=== PATIENT | female | born 1965 | race Caucasian/White ===

== ENCOUNTER 2017-10-16 13:37 | Emergency (ER) | payer OTHER, SELFPAY ==
[2017-10-16 13:58] VITALS: BP 91/57; PULSE 61; RESP 20; TEMP 38.4; O2SAT 96; BMI 29.2
--- NOTE | 2017-10-16 14:05 | XR_ITS ---
XR chest 2V HISTORY: ITS.REASON: SOA ORDERING PHYSICIAN: Olivia Lynch PATIENT AGE: 52 years COMPARISON: 03/07/2017 FINDINGS: The cardiomediastinal silhouette and pulmonary vascularity are within normal limits. There are chronic changes in the right CP angle with elevated right hemidiaphragm. In addition, there is faint opacification in the right lung base medially which may be due to superimposed atelectasis or infiltrate. No acute bony anomalies. IMPRESSION: Chronic change in the right lower lobe with superimposed atelectasis or infiltrate. Suggest follow until clear as an underlying nodule could be obscured
--- NOTE | 2017-10-16 14:18 | HMH.EDUTC ---
[facility] [place] Clinical Impression: Pneumonia, Influenza Disposition: Home, Self-Care Condition on Discharge: Good Instructions: Pneumonia-Adult, Influenza, DI for Fever (Symptom) -- Adult Additional Instructions: ? Start Tamiflu today if you are going to take it. Discussed risk and possible benefits. ? Lots of rest ? Increase Fluids water, Gatorade, powerade, pedialyte,if /toddler/child ? Alternate Tylenol and / or ibuprofen as discussed for fever, aches, chills x 24 hours without medication for symptoms ? Follow up IMMEDIATELY for new or worsening Symptoms OR no noticeable improvement over the next 48-72 hours, 911 for difficulty or breathing ? You or your child area contagious until no fever, aches, chills for 24 hours with medication for symptoms Make sure to take antibiotics as prescribed Follow up with family doctor Return if needed Take medication as prescribed If you began to have any difficulty in breathing go straight to ER Prescriptions: Albuterol Sulfate [Albuterol HFA Inhaler] 2 puffs IH Q6HP PRN #1 inh PRN Reason: Shortness Of Breath Or Wheezing Benzonatate [Tessalon Perle 100mg Cap] 100 mg PO TID PRN #15 cap PRN Reason: Cough Cefdinir [Omnicef 300mg Capsule] 300 mg PO BID #20 cap Oseltamivir Phosphate [Tamiflu 75mg Capsule] 75 mg PO BID #10 cap predniSONE [Prednisone 20mg Tab] 20 mg PO BID #10 tab Referrals: Reid Sharma MD [Primary Care Provider] - Medical Decision Making - Medical Records Medical records reviewed: Yes: I reviewed the patient's medical records. Vital Signs: 10/16/17 13:58 Temperature 101.1 F H Temperature Source Temporal Artery Scan Pulse Rate [Right] 61 Respiratory Rate 20 Blood Pressure [Right Arm] 91/57 Blood Pressure Mean [Right Arm] 68 Blood Pressure Source [Right Arm] Automatic Cuff Blood Pressure Position [Right Arm] Sitting 02 Sat by Pulse Oximetry 96 Oxygen Delivery Method Room Air Orders (Tests/Meds): ED MEDICATIONS Discontinued Medications Generic Name Dose Route Start Last Admin Trade Name Freq PRN Reason Stop Dose Admin Albuterol/Ipratropium 3 ml 10/16/17 14:06 10/16/17 14:16 Duoneb 3ml Neb IH 10/16/17 14:07 3 ml ONCE ONE Administration - Radiology Data #1 Image(s): Chest Image Reviewed: Yes I discussed the image results w/the radiologist Chronic changes right lower lobe with superimposed atelectasis or infiltrate. - Eddi Inquiry Pt receiving controlled substance: No Eddi was queried for this patient: No [facility] [place] - General Stated complaint: soa flu like symptoms Mode of Arrival: Ambulatory Source of Information: Patient Limitations: No Limitations Description of Symptoms (Recalled from Triage Doc. by RN): COUGH, FEVER HEENT Symptoms (Recalled from RN notes): Yes Resp Symptoms (Recalled from RN notes): No Skin Symptoms (Recalled from RN notes): No MS Symptoms (Recalled from RN notes): No Functional Status (Recalled from RN notes): N - History of Present Illness Provider Complaint: Patient state that she feels like she may have the flu State that she is having body aches, fever, head and chest congestion along with cough State that at times she coughs so much she feels like she loses her breath State that her daughter has not been feeling well also and her symptoms have continued to worsen since Saturday - Related Data Home Medications Medication Instructions Recorded Confirmed acetaminophen 300 mg-codeine 30 mg 1 tab PO Q8HP PRN tab 09/18/17 tablet albuterol sulfate HFA 90 2 puff INHALATION Q4H PRN g 09/18/17 mcg/actuation aerosol inhaler citalopram 40 mg tablet 40 mg PO QDAY 09/18/17 fluticasone 100 mcg-vilanterol 25 1 inh INHALATION Q24H 09/18/17 mcg/dose powder for inhalation fluticasone 50 mcg/actuation nasal 1 spray INTRANASAL ONCE 09/18/17 spray,suspension gabapentin 600 mg tablet 600 mg PO BID tab 09/18/17 10/16/17 levothyroxine 25 mcg tablet 2
--- NOTE | 2017-10-16 14:21 | ED_ITS ---
[facility] [place] Dis[place] Clinical Impression: Pneumonia, Influenza Disposition: Home, Self-Care Condition on Discharge: Good Instructions: Pneumonia-Adult, Influenza, DI for Fever (Symptom) -- Adult Additional Instructions: ? Start Tamiflu today if you are going to take it. Discussed risk and possible benefits. ? Lots of rest ? Increase Fluids water, Gatorade, powerade, pedialyte,if /toddler/child ? Alternate Tylenol and / or ibuprofen as discussed for fever, aches, chills x 24 hours without medication for symptoms ? Follow up IMMEDIATELY for new or worsening Symptoms OR no noticeable improvement over the next 48-72 hours, 911 for difficulty or breathing ? You or your child area contagious until no fever, aches, chills for 24 hours with medication for symptoms Make sure to take antibiotics as prescribed Follow up with family doctor Return if needed Take medication as prescribed If you began to have any difficulty in breathing go straight to ER Prescriptions: Albuterol Sulfate [Albuterol HFA Inhaler] 2 puffs IH Q6HP PRN #1 inh PRN Reason: Shortness Of Breath Or Wheezing Benzonatate [Tessalon Perle 100mg Cap] 100 mg PO TID PRN #15 cap PRN Reason: Cough Cefdinir [Omnicef 300mg Capsule] 300 mg PO BID #20 cap Oseltamivir Phosphate [Tamiflu 75mg Capsule] 75 mg PO BID #10 cap predniSONE [Prednisone 20mg Tab] 20 mg PO BID #10 tab Referrals: Reid Sharma MD [Primary Care Provider] - Medical Decision Making - Medical Records Medical records reviewed: Yes: I reviewed the patient's medical records. Vital Signs: 10/16/17 13:58 Temperature 101.1 F H Temperature Source Temporal Artery Scan Pulse Rate [Right] 61 Respiratory Rate 20 Blood Pressure [Right Arm] 91/57 Blood Pressure Mean [Right Arm] 68 Blood Pressure Source [Right Arm] Automatic Cuff Blood Pressure Position [Right Arm] Sitting 02 Sat by Pulse Oximetry 96 Oxygen Delivery Method Room Air Orders (Tests/Meds): ED MEDICATIONS Discontinued Medications Generic Name Dose Route Start Last Admin Trade Name Freq PRN Reason Stop Dose Admin Albuterol/Ipratropium 3 ml 10/16/17 14:06 10/16/17 14:16 Duoneb 3ml Neb IH 10/16/17 14:07 3 ml ONCE ONE Administration - Radiology Data #1 Image(s): Chest Image Reviewed: Yes I discussed the image results w/the radiologist Chronic changes right lower lobe with superimposed atelectasis or infiltrate. - Eddi Inquiry Pt receiving controlled substance: No Eddi was queried for this patient: No [facility] [place] HPI - General Stated complaint: soa flu like symptoms Mode of Arrival: Ambulatory Source of Information: Patient Limitations: No Limitations Description of Symptoms (Recalled from Triage Doc. by RN): COUGH, FEVER HEENT Symptoms (Recalled from RN notes): Yes Resp Symptoms (Recalled from RN notes): No Skin Symptoms (Recalled from RN notes): No MS Symptoms (Recalled from RN notes): No Functional Status (Recalled from RN notes): N - History of Present Illness Provider Complaint: Patient state that she feels like she may have the flu State that she is having body aches, fever, head and chest congestion along with cough State that at times she coughs so much she feels like she loses her breath State that her daughter has not been feeling well also and her symptoms have continued to worsen since Saturday - Related Data
[2017-10-16 19:44] LABS: UTC Influenza A Antigen Positive (Negative); UTC Influenza B Antigen Negative (Negative)
== END 2017-10-16 14:59 | disposition home or self-care (01) ==
PROVIDERS: Emergency Provider Nurse Practitioner; PCP Emergency Medicine
DX: J11.00 Influenza due to unidentified influenza virus with unspecified type of pneumonia (principal); I10 Essential (primary) hypertension; F17.210 Nicotine dependence, cigarettes, uncomplicated; F19.11 Other psychoactive substance abuse, in remission; Z86.14 Personal history of Methicillin resistant Staphylococcus aureus infection; Z79.51 Long term (current) use of inhaled steroids; Z79.899 Other long term (current) drug therapy
CPT/HCPCS: 71046; 87804; 99202

== ENCOUNTER → 2017-11-04 15:50 | Outpatient (CLI) | payer OTHER, SELFPAY ==
[2017-11-04 16:22] LABS: Basophils # 0.1 K/mm3 (0-0.2); Basophils % 0.8 % (0.1-2.0); Eosinophils # 0.3 K/mm3 (0.0-0.4); Eosinophils % 5.3 % (0.1-12.0); Hematocrit 39.1 % (37.0-47.0); Hemoglobin 12.7 g/dL (12.2-16.2); Lymphocytes # 1.6 K/mm3 (0.7-4.5); Lymphocytes % 27.2 K/mm3 (10-50); Mean Corpuscular HGB Conc 32.4 g/dL (31.8-35.4); Mean Corpuscular Hemoglobin 30.7 pg (27.0-31.2); Mean Corpuscular Volume 94.9 fl (81-99); Mean Platelet Volume 10.6 fl (7.4-10.4); Monocytes # 0.3 K/mm3 (0.1-1.0); Monocytes % 4.4 % (1.7-9.3); Neutrophils # 3.8 K/mm3 (1.8-7.8); Neutrophils % 62.4 % (37.0-80.0); Platelet Count 122 K/mm3 (142-424); Red Blood Count 4.13 M/mm3 (4.20-5.40); Red Cell Distribution Width 13.5 % (11.5-17.5)
== END ==
PROVIDERS: PCP Emergency Medicine; Visit Provider Nurse Practitioner
DX: D64.9 Anemia, unspecified (principal); D69.6 Thrombocytopenia, unspecified; D59.1 Other autoimmune hemolytic anemias
CPT/HCPCS: 36415; 85025

== ENCOUNTER 2017-11-14 11:51 | Observation (INO) | payer OTHER, SELFPAY ==
[2017-11-14] VITALS (11 sets, daily range): BP systolic 109–125; BP diastolic 51–80; PULSE 60–105; RESP 18–22; TEMP 36.7–37.6; O2SAT 92–98; BMI 28.9; BMI 28.5
--- NOTE | 2017-11-14 12:02 | XR_ITS ---
XR chest 2V HISTORY: ITS.REASON: right chest pain ORDERING PHYSICIAN: Sierra Mendez MD PATIENT AGE: 52 years COMPARISON: 10/16/2017 FINDINGS: The cardiomediastinal silhouette and pulmonary vascularity are within normal limits. Previously noted infiltrate in the right lung base has improved. There remains blunting of the right CP angle is chronic. The remaining lungs are clear. Unremarkable cardiovascular structures. No acute bony anomalies. IMPRESSION: Improved right basilar airspace disease
[2017-11-14 12:10] LABS: Adenovirus,PCR Not Detected (NotDetected); Bordetella Pertussis Not Detected (NotDetected); Chlamydophila Pneumoniae, PCR Not Detected (NotDetected); Coronavirus 229E Not Detected (NotDetected); Coronavirus NL63 Not Detected (NotDetected); Coronavirus OC43 Not Detected (NotDetected); Human Metapneumovirus Not Detected (NotDetected); Influenza A, PCR Not Detected (NotDetected); Influenza AH1, 2009 Not Detected (NotDetected); Influenza AH1, PCR Not Detected (NotDetected); Influenza AH3,PCR Not Detected (NotDetected); Influenza B, PCR Not Detected (NotDetected); Mycoplasma Pneumoniae, PCR Not Detected (NotDected); Parainfluenza 1, PCR Not Detected (NotDetected); Parainfluenza 2, PCR Not Detected (NotDetected); Parainfluenza 3, PCR Not Detected (NotDetected); Parainfluenza 4, PCR Not Detected (NotDetected); Respiratory Syncytial Virus Not Detected (NotDetected); Rhinovirus/Enterovirus Not Detected (NotDetected)
--- NOTE | 2017-11-14 12:16 | PC.NURSE ---
Pt to radiology at this time.
--- NOTE | 2017-11-14 12:29 | HMH.EDCP ---
ED Disposition Clinical Impression: Atypical chest pain, Tobacco abuse, Hypertension, Obesity, Viral syndrome, COPD (chronic obstructive pulmonary disease) Disposition: Still a Patient Condition on Discharge: Fair Referrals: Reid Sharma MD [Primary Care Provider] - - Critical Care Critical Care Time: No Attestation: On 11/14/17, the high probability of a clinically significant, sudden or life threatening deterioration of the following system(s) required my full and direct attention, intervention and personal management. The time I documented below is in addition to time spent performing reported procedures but includes the following listed in this critical care notation. Medical Decision Making - Medical Records Medical records reviewed: Yes: I reviewed the patient's medical records. Vital Signs: 11/14/17 11:52 Temperature 99.6 F Temperature Source Temporal Artery Scan Pulse Rate [Right Brachial] 73 Respiratory Rate 22 Blood Pressure Source [Right Arm] Automatic Cuff 02 Sat by Pulse Oximetry 92 L Oxygen Delivery Method Room Air - Lab Data Lab results reviewed: Yes: I reviewed the patient's lab results. Lab Results 11/14/17 12:05: WBC 7.3, RBC 4.60, Hgb 14.6, Hct 43.7, MCV 95.2, MCH 31.8 H, MCHC 33.4, RDW 13.3, Plt Count 131 L, MPV 10.7 H, Neut % (Auto) 75.1, Lymph % (Auto) 16.0, Marshall % (Auto) 5.2, Eos % (Auto) 3.3, Baso % (Auto) 0.4, Neut # (Auto) 5.5, Lymph # (Auto) 1.2, Marshall # (Auto) 0.4, Eos # (Auto) 0.2, Baso # (Auto) 0.0 11/14/17 12:05: D-Dimer < 100 11/14/17 12:05: Sodium 139, Potassium 3.7, Chloride 103, Carbon Dioxide 27, Anion Gap 12.7, BUN 15, Creatinine 0.84, Estimated Creat Clear 85, Estimated GFR 72, Est GFR ( Amer) 87, Glucose 125 H, Calcium 9.2, Total Bilirubin 0.3, AST 9 L, ALT 27, Alkaline Phosphatase 135 H, Total Creatine Kinase 26, CK-MB (CK-2) < 0.5, CK-MB (CK-2) Rel Index 1.9, Troponin I < 0.02, Total Protein 7.9, Albumin 3.7, Globulin 4.2 H, Albumin/Globulin Ratio 0.9 L 11/14/17 12:05: B-Natriuretic Peptide 31 11/14/17 12:05: Chlamy pneumoniae PCR Not detected, Adenovirus (PCR) Not detected, B.parapertussis DNA PCR Not detected, Coronavirus OC43 (PCR) Not detected, Coronavirus HKU1 (PCR) Detected A, Coronavirus 229E (PCR) Not detected, Coronavirus NL63 (PCR) Not detected, Human Metapneumovir PCR Not detected, Influenza A (H1) PCR Not detected, Influ A (H1N1/09) PCR Not detected, Influenza A (H3) PCR Not detected, Influenza Type A (PCR) Not detected, Influenza Type B (PCR) Not detected, M. pneumoniae (PCR) Not detected, Parainfluenza 1 (PCR) Not detected, Parainfluenza 2 (PCR) Not detected, Parainfluenza 3 (PCR) Not detected, Parainfluenza 4 (PCR) Not detected, RSV (PCR) Not detected, Entero/Rhino (PCR) Not detected Result diagrams: 11/14/17 12:05 11/14/17 12:05 Orders (Tests/Meds): ORDERS Category Date Time Status CT head/brain wo con Stat Cat Scan 11/14/17 12:02 Ordered XR chest 2V Stat Exams 11/14/17 12:02 Taken - Radiology Data #1 Image(s): Chest Image Reviewed: Yes I reviewed the patient's radiology image Preliminary Findings: Abnormal Interval improvement of the right lower lobe infiltrates. - ECG Data Tracing #1 Normal sinus rhythm 77/min baseline artifact nonspecific ST segment and T-wave changes, no acute findings. ECG initial impression date: 11/14/17 ECG initial impression time: 12:33 - Eddi Inquiry Pt receiving controlled substance: No Eddi was queried for this patient: No Medical Decision Making Narrative: I reviewed her EKG with Dr. Latif a pre sales technical consultant who recommended that she be admitted to rule out SD and she will undergo stress test tomorrow. The patient ruled out for pulmonary embolus by negative dimer and her first set of cardiac enzymes were negative Respiratory panel was positive for bradford virus. Chest Pain HPI - General Chief Complaint: PAIN Stated Complaint: right shoulder pain,thinks is pleuri
--- NOTE | 2017-11-14 12:32 | ED_ITS ---
ED Disposition Clinical Impression: Atypical chest pain, Tobacco abuse, Hypertension, Obesity, Viral syndrome, COPD (chronic obstructive pulmonary disease) Disposition: Still a Patient Condition on Discharge: Fair Referrals: Reid Sharma MD [Primary Care Provider] - - Critical Care Critical Care Time: No Attestation: On 11/14/17, the high probability of a clinically significant, sudden or life threatening deterioration of the following system(s) required my full and direct attention, intervention and personal management. The time I documented below is in addition to time spent performing reported procedures but includes the following listed in this critical care notation. Medical Decision Making - Medical Records Medical records reviewed: Yes: I reviewed the patient's medical records. Vital Signs: 11/14/17 11:52 Temperature 99.6 F Temperature Source Temporal Artery Scan Pulse Rate [Right Brachial] 73 Respiratory Rate 22 Blood Pressure Source [Right Arm] Automatic Cuff 02 Sat by Pulse Oximetry 92 L Oxygen Delivery Method Room Air - Lab Data Lab results reviewed: Yes: I reviewed the patient's lab results. Lab Results 11/14/17 12:05: WBC 7.3, RBC 4.60, Hgb 14.6, Hct 43.7, MCV 95.2, MCH 31.8 H, MCHC 33.4, RDW 13.3, Plt Count 131 L, MPV 10.7 H, Neut % (Auto) 75.1, Lymph % ( Auto) 16.0, Meagher % (Auto) 5.2, Eos % (Auto) 3.3, Baso % (Auto) 0.4, Neut # (Auto ) 5.5, Lymph # (Auto) 1.2, Meagher # (Auto) 0.4, Eos # (Auto) 0.2, Baso # (Auto) 0.0 11/14/17 12:05: D-Dimer < 100 11/14/17 12:05: Sodium 139, Potassium 3.7, Chloride 103, Carbon Dioxide 27, Anion Gap 12.7, BUN 15, Creatinine 0.84, Estimated Creat Clear 85, Estimated GFR 72, Est GFR ( Amer) 87, Glucose 125 H, Calcium 9.2, Total Bilirubin 0.3, AST 9 L, ALT 27, Alkaline Phosphatase 135 H, Total Creatine Kinase 26, CK- MB (CK-2) < 0.5, CK-MB (CK-2) Rel Index 1.9, Troponin I < 0.02, Total Protein 7.9, Albumin 3.7, Globulin 4.2 H, Albumin/Globulin Ratio 0.9 L 11/14/17 12:05: B-Natriuretic Peptide 31 11/14/17 12:05: Chlamy pneumoniae PCR Not detected, Adenovirus (PCR) Not detected, B.parapertussis DNA PCR Not detected, Coronavirus OC43 (PCR) Not detected, Coronavirus HKU1 (PCR) Detected A, Coronavirus 229E (PCR) Not detected , Coronavirus NL63 (PCR) Not detected, Human Metapneumovir PCR Not detected, Influenza A (H1) PCR Not detected, Influ A (H1N1/09) PCR Not detected, Influenza A (H3) PCR Not detected, Influenza Type A (PCR) Not detected, Influenza Type B (PCR) Not detected, M. pneumoniae (PCR) Not detected, Parainfluenza 1 (PCR) Not detected, Parainfluenza 2 (PCR) Not detected, Parainfluenza 3 (PCR) Not detected, Parainfluenza 4 (PCR) Not detected, RSV (PCR ) Not detected, Entero/Rhino (PCR) Not detected Result diagrams: 11/14/17 12:05 11/14/17 12:05 Orders (Tests/Meds): ORDERS Category Date Time Status CT head/brain wo con Stat Cat Scan 11/14/17 12:02 Ordered XR chest 2V Stat Exams 11/14/17 12:02 Taken - Radiology Data #1 Image(s): Chest Image Reviewed: Yes I reviewed the patient's radiology image Preliminary Findings: Abnormal Interval improvement of the right lower lobe infiltrates. - ECG Data Tracing #1 Normal sinus rhythm 77/min baseline artifact nonspecific ST segment and T-wave changes, no acute findings. ECG initial impression date: 11/14/17 ECG initial impression time: 12:33 - Eddi Inquiry Pt receiving controlled substance: No [place]
[2017-11-14 12:44] LABS: Basophils % 0.4 % (0.1-2.0); Eosinophils # 0.2 K/mm3 (0.0-0.4); Eosinophils % 3.3 % (0.1-12.0); Hematocrit 43.7 % (37.0-47.0); Hemoglobin 14.6 g/dL (12.2-16.2); Lymphocytes # 1.2 K/mm3 (0.7-4.5); Mean Corpuscular HGB Conc 33.4 g/dL (31.8-35.4); Mean Corpuscular Hemoglobin 31.8 pg (27.0-31.2); Mean Corpuscular Volume 95.2 fl (81-99); Mean Platelet Volume 10.7 fl (7.4-10.4); Monocytes # 0.4 K/mm3 (0.1-1.0); Monocytes % 5.2 % (1.7-9.3); Neutrophils # 5.5 K/mm3 (1.8-7.8); Neutrophils % 75.1 % (37.0-80.0); Platelet Count 131 K/mm3 (142-424); Red Cell Distribution Width 13.3 % (11.5-17.5); White Blood Count 7.3 K/mm3 (4.8-10.8)
--- NOTE | 2017-11-14 12:57 | PC.NURSE ---
Dr Zachary osborne
[2017-11-14 13:00] LABS: Alanine Aminotransferase 27 U/L (12-78); Albumin Level 3.7 gm/dL (3.4-5.0); Albumin/Globulin Ratio 0.9 (1.1-1.8); Alkaline Phosphatase 135 U/L (46-116); Anion Gap 12.7 mEq/L (5-15); Aspartate Amino Transferase 9 U/L (15-37); Bilirubin,Total 0.3 mg/dL (0.2-1.0); Blood Urea Nitrogen 15 mg/dL (7-18); CKMB Relative Index 1.9 U/L (0-4.0); Calcium 9.2 mg/dL (8.5-10.1); Carbon Dioxide 27 mmol/L (21.0-32.0); Chloride 103 mmol/L (98-107); Creatine Kinase 26 U/L (26-192); Creatine Kinase MB < 0.5 mg/ml (0.0-3.6); Creatinine Clearance Estimated 85 mL/min (0-300); Creatinine,Serum 0.84 mg/dL (0.55-1.02); Estimated Glomerular Filt Rate 72 ml/min (>60); GFR (African American) 87 ML/MIN (>60); Globulin 4.2 gm/dl (1.3-3.2); Glucose 125 mg/dL (74-106); Potassium 3.7 mmoL/L (3.5-5.1); Sodium 139 mmol/L (136-145); Total Protein,Serum 7.9 gm/dL (6.4-8.2); Troponin I < 0.02 ng/ml (0.00-0.06)
[2017-11-14 13:15] LABS: D-Dimer < 100 (0-400)
[2017-11-14 13:23] LABS: Coronovirus HKU1,PCR Detected (NotDetected)
--- NOTE | 2017-11-14 13:32 | CA_ITS ---
PROCEDURE: 2-D M-mode and color Doppler study INDICATIONS FOR THE TEST: Chest painx COPD Heart Murmur Tobacco Smoking Palpitations Fatigue Syncope Edema Hypertension Diabetes Mellitus Rheumatic Fever SOB NUNEZ Obesity Hyperlipidemia Family History HD Additional History PATIENT INFORMATION HEIGHT: 5'0'' WEIGHT: 148 GENDER: Female B/P: 118/67 2-D/M-MODE INTERPRETATION: 2-D MEASUREMENTS OBSERVED VALUES IN CMS Right Ventricular Dimension (RVDd) 2.0 Interventricular Septum (Thickness)(IVsd) 0.8 Left Ventricular Internal Dimensions(LVIDd) 4.5 Left Ventricular Posterior Wall (Thickness)(LVPWd) 0.9 Aortic Root 2.6 Aortic Cusp Separation 1.5 Left Atrial Dimensions (LAD) 2.8 2D 1. Left atrium is normal size, left ventricle is normal size, there is no concentric left ventricular hypertrophy, visually estimated ejection fraction of 55% with no obvious regional wall motion abnormality. 2. The right atrium and right ventricle are grossly normal. 3. The aortic valve is minimally thickened and fibrosed. 4. The mitral and tricuspid valvular grossly normal, there is no obvious mitral valve prolapse. 5. The pulmonic valve is poorly visualized. 6. No significant pericardial effusion noted. DOPPLER INTERROGATION: Doppler interrogation of the aortic, mitral and tricuspid valvular presence of mild mitral and tricuspid regurgitation, tricuspid and jet velocity insufficient for calculation of the right ventricular systolic pressure, diastolic parameters are within normal range. CONCLUSION: 1. Normal left ventricular size, preserved left ventricular systolic function, visually estimated ejection fraction 55% with no obvious regional wall motion abnormality, diastolic parameters are within normal range. 2. Mild mitral and tricuspid regurgitation. 3. No significant pericardial effusion noted.
[2017-11-14 14:41] LABS: Troponin I < 0.02 ng/ml (0.00-0.06)
--- NOTE | 2017-11-14 16:32 | HMH.CNCARD ---
History of Present Illness Consult date: 11/14/17 Requesting physician: Sierra Mendez Consult reason: chest pain Chief complaint: chest pain Additional Medical History:: 1. Tobacco use, [id number] history 2. Hypertension 3. Family history of coronary artery disease in her father with his first IL in his 20s. 4. Irritable bowel syndrome 5. Hypothyroidism, on replacement therapy. History of present illness: 52-year-old white female with a 2 day history of chest pain. Patient states a sudden onset that worsens with deep breathing or cough. She states I feel like I have pleurisy as it feels similar to what she has had in the past. Patient denies any recent exertional chest pain or shortness of breath. Previously been told she has mitral valve prolapse about 20 years ago but no recent cardiac testing. Denies any history of syncope or near syncopal symptoms. Occasional palpitations noted. Patient was admitted through the emergency department. Initial troponins normal ?2. EKG is sinus and unremarkable. Cardiology consulted for further evaluation. D-dimer noted to be normal, BNP is 31 and chest x-ray reveals no evidence of congestive heart failure. Patient did test positive for the coronavirus. [facility] History Medical History: Reports:: Hypertension, MRSA Denies:: Cancer, Diabetes Mellitus Type 1, Diabetes Mellitus Type 2, Internal Pacemaker Other Medical History: Reports: Anemia, Arthritis, Fibromyalgia, Hypothyroidism Laterality Cases: Left: Lumpectomy Other Surgeries: Yes: , Hysterectomy-Partial, Sinus Surgery, Other (lipo, breast reduction). No: Pacemaker Amputation: No Fractures: No - *Social History Educational Level: Completed High School Smoking Status: Current every day smoker Tobacco Type: cigarettes # Packs/Day (cigarettes): 10 Alcohol Intake: never Substance Use Type: former substance user, prescription drug Occupational Status: employed Housing: house Household Members: family - Psychiatric History Expresses thoughts of harming self/others: None Suicide Plan Description: No Plan *Family Hx:: Diabetes, Heart Attack, Hypertension Meds Home Medications Medication Instructions Recorded Confirmed Type acetaminophen 300 mg-codeine 30 mg 1 tab PO Q8HP PRN tab 09/18/17 11/14/17 History tablet albuterol sulfate HFA 90 2 puff INHALATION Q4H PRN g 09/18/17 11/14/17 History mcg/actuation aerosol inhaler fluticasone 100 mcg-vilanterol 25 1 inh INHALATION Q24H 09/18/17 11/14/17 History mcg/dose powder for inhalation fluticasone 50 mcg/actuation nasal 1 spray INTRANASAL ONCE 09/18/17 History spray,suspension gabapentin 600 mg tablet 600 mg PO BID tab 09/18/17 11/14/17 History metoprolol tartrate 50 mg tablet 50 mg PO BID 09/18/17 11/14/17 History Citalopram Hydrobromide [Celexa] 40 mg PO QDAY 11/14/17 11/14/17 History Nicotine [Nicotine Patch 21 mg TRANSDERMA ONCE 11/14/17 11/14/17 History 21mg/24hrs] Allergies Allergy/AdvReac Type Severity Reaction Status Date / Time eletriptan Allergy Severe S-SWELLS-OR Verified 10/16/17 14:04 AL/THROAT metronidazole Allergy Severe LIVER Verified 10/16/17 14:04 FAILURE/JAUNDICE sumatriptan Allergy Severe S-SWELLS-OR Verified 10/16/17 14:04 AL/THROAT acetaminophen AdvReac Mild NA-NAUSEA Verified 10/16/17 14:04 [From Tylenol-Codeine #3] codeine AdvReac Mild NA-NAUSEA Verified 10/16/17 14:04 [From Tylenol-Codeine #3] erythromycin base AdvReac Mild NA-NAUSEA/V Verified 10/16/17 14:04 OMITING Sulfa (Sulfonamide AdvReac Mild NA-NAUSEA/V Verified 10/16/17 14:04 Antibiotics) OMITING sulfacetamide AdvReac Mild NA-NAUSEA/V Verified 10/16/17 14:04 OMITING tetracycline AdvReac Mild NA-NAUSEA/V Verified 10/16/17 14:04 OMITING Review of Systems - *Cardiovascular Reports chest pain, Denies shortness of breath - *Respiratory Reports shortness of breath, Reports pain with cough - *Gastrointestinal
--- NOTE | 2017-11-14 17:04 | PC.NURSE ---
pt lungs are clear but diminished. bowel sounds active, heart sounds normal. iv site changed due to pain. call light in reach. pt stated pain and prn med given per mar. on reassessment. pt stated med was effective. will continue to monitor pt condition.
--- NOTE | 2017-11-14 20:59 | PC.NURSE ---
Imtiaz Nair, phoned to update nursing on time and date of Cardiolyte Stress, that was ordered for the am. S Call RN notified that dosing would be @ 0700 and stress would be @ 0830. NPO order entered
[2017-11-15] VITALS (7 sets, daily range): BP systolic 106–130; BP diastolic 53–62; PULSE 60–84; RESP 18; TEMP 36.2–36.6; O2SAT 98–99
--- NOTE | 2017-11-15 03:57 | PC.NURSE ---
PT IS A&OX3. SHE IS ON DROPLET PRECAUTIONS R/T CORONAVIRUS. SHE HAS AMBULATED TO THE BATHROOM. SHE HAS A COUGH BUT DENIES SPUTUM PRODUCTION. LUNG SOUNDS CTA. SHE HAS RECEIVED PRN MEDICATION FOR REPORTS OF PAIN IN HER RIGHT SIDE WHEN SHE EXHALES. DENIES SOA.
--- NOTE | 2017-11-15 04:01 | PC.NURSE ---
PT IS NPO FOR STRESS TEST THIS AM.
--- NOTE | 2017-11-15 07:00 | NM_ITS ---
History and Indications: Hypertension, tobacco use, family history, chest pain, shortness of breath Procedure: Patient received a 0.4 mg of Lexiscan, resting heart rate was 60 bpm, resting blood pressure 131/69, with Lexiscan maximum heart rate achieved was 118 bpm, and the blood pressure was 142/76. With Lexiscan patient complained of shortness of breath and nausea Electrocardiogram: Resting electrocardiogram showed sinus rhythm nonspecific ST-T changes, with Lexiscan there is less than [address] segment depression noted from the baseline EKG, nonspecific T wave changes. The EKG portion of the Lexiscan is nondiagnostic. Cardiac stress and resting SPECT images: Cardiac stress and rest SPECT images were obtained using technetium 99 Myoview 10.8 mCi at rest and 30.8 mCi at stress, gated SPECT further analysis of segmental wall motion and calculation of the ejection fraction also done. Cardiac stress and rest images show uniform myocardial activity without any segmental perfusion abnormality, computer derived ejection fraction over 65% with no obvious regional wall motion abnormality, right ventricle is mildly enlarged with normal contractility. Conclusion: 1. The EKG portion of the Lexiscan Myoview is nondiagnostic. 2. No obvious scintigraphic evidence of reversible ischemia seen, computer derived ejection fraction is over 65% with no obvious regional wall motion abnormality, right ventricle is mildly enlarged with normal contractility.
--- NOTE | 2017-11-15 07:15 | PC.NURSE ---
REPORT GIVEN TO Nato KEATING W/C
[2017-11-15 07:16] LABS: Basophils % 0.2 % (0.1-2.0); Eosinophils % 0.3 % (0.1-12.0); Hematocrit 42.4 % (37.0-47.0); Hemoglobin 14.2 g/dL (12.2-16.2); Lymphocytes # 0.5 K/mm3 (0.7-4.5); Lymphocytes % 9.5 K/mm3 (10-50); Mean Corpuscular HGB Conc 33.4 g/dL (31.8-35.4); Mean Corpuscular Hemoglobin 31.8 pg (27.0-31.2); Mean Corpuscular Volume 95.2 fl (81-99); Mean Platelet Volume 10.6 fl (7.4-10.4); Monocytes # 0.1 K/mm3 (0.1-1.0); Monocytes % 2.1 % (1.7-9.3); Neutrophils # 4.6 K/mm3 (1.8-7.8); Neutrophils % 87.9 % (37.0-80.0); Platelet Count 132 K/mm3 (142-424); Red Blood Count 4.46 M/mm3 (4.20-5.40); White Blood Count 5.2 K/mm3 (4.8-10.8)
[2017-11-15 07:18] LABS: MANUAL DIFFERENTIAL MANUAL DIFFERENTIAL (MANUAL DIFF)
[2017-11-15 07:21] LABS: Blood Urea Nitrogen 13 mg/dL (7-18); Carbon Dioxide 27 mmol/L (21.0-32.0); Chloride 104 mmol/L (98-107); Creatinine Clearance Estimated 87 mL/min (0-300); Creatinine,Serum 0.81 mg/dL (0.55-1.02); Estimated Glomerular Filt Rate 75 ml/min (>60); GFR (African American) 91 ML/MIN (>60); Glucose 194 mg/dL (74-106); Sodium 139 mmol/L (136-145)
--- NOTE | 2017-11-15 07:53 | HMH.PHAVTE ---
[facility] Pharmacy VTE Monitoring - Patient Demographics Admission date: 11/14/17 Report Date: 11/15/17 Time: 07:53 Allergies/Adverse Reactions: Patient Allergies eletriptan Allergy (Severe, Verified 10/16/17 14:04) E-PSFYPN-HBVF/THROAT metronidazole Allergy (Severe, Verified 10/16/17 14:04) LIVER FAILURE/JAUNDICE sumatriptan Allergy (Severe, Verified 10/16/17 14:04) [id number]/THROAT acetaminophen [From Tylenol-Codeine #3] Adverse Reaction (Mild, Verified 10/16/17 14:04) NA-NAUSEA codeine [From Tylenol-Codeine #3] Adverse Reaction (Mild, Verified 10/16/17 14:04) NA-NAUSEA erythromycin base Adverse Reaction (Mild, Verified 10/16/17 14:04) NA-NAUSEA/VOMITING Sulfa (Sulfonamide Antibiotics) Adverse Reaction (Mild, Verified 10/16/17 14:04) NA-NAUSEA/VOMITING sulfacetamide Adverse Reaction (Mild, Verified 10/16/17 14:04) NA-NAUSEA/VOMITING tetracycline Adverse Reaction (Mild, Verified 10/16/17 14:04) NA-NAUSEA/VOMITING Height: 1.52 m Weight: 66.31 kg Patient Problems: Current Active Problems Atypical chest pain (Acute) Tobacco abuse (Acute) Hypertension (Acute) Obesity (Acute) Viral syndrome (Acute) COPD (chronic obstructive pulmonary disease) (Acute) - VTE Risk Labs: VTE Related Lab Results Hgb 14.2 g/dL (12.2-16.2) 11/15/17 06:30 Hct 42.4 % (37.0-47.0) 11/15/17 06:30 Plt Count 132 K/mm3 (142-424) L 11/15/17 06:30 BUN 13 mg/dL (7-18) 11/15/17 06:30 Creatinine 0.81 mg/dL (0.55-1.02) 11/15/17 06:30 Estimated Creat Clear 87 mL/min (0-300) 11/15/17 06:30 Was VTE Risk Assessment Performed: Yes VTE Score: 3 VTE Risk Level: Low Risk - Prophylaxis VTE Prophylaxis Ordered?: Yes Types of VTE Prophylaxis: TEDS Knee High Location of Applied Device: Bilateral Lower Extremeties - VTE Diagnosis Confirmed Treatment or plan recommended: Continue Current Treatment
[2017-11-15 10:00] LABS: Lymphocytes % 13 % (10-50); Monocytes % 2 % (2-9); Neutrophils % 83 % (42-76); RBC Morphology Normal; Total Cells Counted 100
[2017-11-15 10:01] LABS: Platelet Estimate Normal
--- NOTE | 2017-11-15 14:31 | HMH.HPDC ---
General - General Admission date: 11/14/17 Discharge date: 11/15/17 *Admission Date: 11/14/17 *Chief complaint: chest pain *History of present illness: this wf with episodes of chest pain over the last few days was seen in the ed -years old white female smoker with history of COPD recent diagnosis of pneumonia 3 weeks ago. She finished her antibiotics. She continues to have productive cough since then. Developed right lower intercostal sharp pain that is worse with cough and deep breathing. She believes this pleurisy. She was unable to get her primary care physician so she came to the ED. she denies having fever or chills excessive shortness of breath, palpitation, hemoptysis hematemesis coffee-ground emesis or bleeding per rectum. [facility] History I have reviewed the patient's past medical history: Yes Medical History: Reports:: Hypertension, MRSA Denies:: Cancer, Diabetes Mellitus Type 1, Diabetes Mellitus Type 2, Internal Pacemaker Other Medical History: Reports: Anemia, Arthritis, Fibromyalgia, Hypothyroidism Laterality Cases: Left: Lumpectomy Other Surgeries: Yes: , Hysterectomy-Partial, Sinus Surgery, Other (lipo, breast reduction). No: Pacemaker Amputation: No Fractures: No - *Social History Educational Level: Completed High School Smoking Status: Current every day smoker Tobacco Type: cigarettes # Packs/Day (cigarettes): 10 Alcohol Intake: never Substance Use Type: former substance user, prescription drug Occupational Status: employed Housing: house Household Members: family - Psychiatric History Expresses thoughts of harming self/others: None Suicide Plan Description: No Plan *Family Hx:: Diabetes, Heart Attack, Hypertension Review of Systems - Review of Systems Review of systems:: pertinent systems reviewed and negative unless documented below - Constitutional Denies fever(s) - Eyes Denies loss of vision - ENT Denies neck pain - *Cardiovascular Reports chest pain at rest, Reports chest pain with activity, Reports shortness of breath - *Respiratory Denies chest congestion, Denies coughing up blood - *Gastrointestinal Denies constipation - *Musculoskeletal Denies joint pain - Integumentary/Breasts Denies rash - *Neurologic Denies tingling/numbness/burning sensations - Psychiatric Reports anxiety Exam Vital signs and Labs for Last 24 Hours: Temp Pulse Resp BP Pulse Ox 97.1 F L 67 18 130/53 99 11/15/17 12:00 11/15/17 12:00 11/15/17 04:00 11/15/17 12:00 11/15/17 12:00 Laboratory Results - last 24 hr 11/14/17 14:12: Troponin I < 0.02 11/15/17 06:30: WBC 5.2 D, RBC 4.46, Hgb 14.2, Hct 42.4, MCV 95.2, MCH 31.8 H, MCHC 33.4, RDW 13.0, Plt Count 132 L, MPV 10.6 H, Neut % (Auto) 87.9 H, Lymph % (Auto) 9.5 L, [place] % (Auto) 2.1, Eos % (Auto) 0.3, Baso % (Auto) 0.2, Neut # (Auto) 4.6, Lymph # (Auto) 0.5 L, [place] # (Auto) 0.1, Eos # (Auto) 0.0, Baso # (Auto) 0.0, Total Counted 100, Neutrophils % (Manual) 83 H, Band Neutrophils % 2.0, Lymphocytes % (Manual) 13, Monocytes % (Manual) 2, Platelet Estimate Normal, RBC Morphology Normal 11/15/17 06:30: Sodium 139, Potassium 4.0, Chloride 104, Carbon Dioxide 27, Anion Gap 12.0, BUN 13, Creatinine 0.81, Estimated Creat Clear 87, Estimated GFR 75, Est GFR ( Amer) 91, Glucose 194 H D I & O for Last 24 hours: Intake & Output 11/13/17 11/14/17 11/15/17 11/16/17 11:59 11:59 11:59 11:59 Intake Total 1056 / 1056 Output Total 700 / 700 Balance 356 / 356 Weight 146 lb 3.016 oz - Constitutional no acute distress - *Routine HEENT Exam Head: Present: normocephalic Eye: Present: EOMI, PERRL ENT: Present: mucous membranes dry - *Routine Neck Exam Present: supple - *Routine Respiratory Exam Present: CTA bilaterally - *Routine Cardiovascular Exam Present: RRR, murmur - *Routine Abdominal Exam Present: soft. Absent: tenderness, distended - *Routine Extremities Exam Absent: calf tenderness
--- NOTE | 2017-12-05 09:48 | P.CONS_ITS ---
History of Present Illness Consult date: 11/14/17 Requesting physician: Sierra Mendez Consult reason: chest pain Chief complaint: chest pain Additional Medical History:: 1. Tobacco use, [id number] history 2. Hypertension 3. Family history of coronary artery disease in her father with his first PR in his 20s. 4. Irritable bowel syndrome 5. Hypothyroidism, on replacement therapy. History of present illness: 52-year-old white female with a 2 day history of chest pain. Patient states a sudden onset that worsens with deep breathing or cough. She states I feel like I have pleurisy as it feels similar to what she has had in the past. Patient denies any recent exertional chest pain or shortness of breath. Previously been told she has mitral valve prolapse about 20 years ago but no recent cardiac testing. Denies any history of syncope or near syncopal symptoms. Occasional palpitations noted. Patient was admitted through the emergency department. Initial troponins normal ?2. EKG is sinus and unremarkable. Cardiology consulted for further evaluation. D-dimer noted to be normal, BNP is 31 and chest x-ray reveals no evidence of congestive heart failure. Patient did test positive for the coronavirus. [facility] History Medical History: Reports:: Hypertension, MRSA Denies:: Cancer, Diabetes Mellitus Type 1, Diabetes Mellitus Type 2, Internal Pacemaker Other Medical History: Reports: Anemia, Arthritis, Fibromyalgia, Hypothyroidism Laterality Cases: Left: Lumpectomy Other Surgeries: Yes: , Hysterectomy-Partial, Sinus Surgery, Other ( lipo, breast reduction). No: Pacemaker Amputation: No Fractures: No - *Social History Educational Level: Completed High School Smoking Status: Current every day smoker Tobacco Type: cigarettes # Packs/Day (cigarettes): 10 Alcohol Intake: never Substance Use Type: former substance user, prescription drug Occupational Status: employed Housing: house Household Members: family - Psychiatric History Expresses thoughts of harming self/others: None Suicide Plan Description: No Plan *Family Hx:: Diabetes, Heart Attack, Hypertension Meds Home Medications Medication Instructions Recorded Confirmed Type acetaminophen 300 mg-codeine 30 mg 1 tab PO Q8HP PRN tab 09/18/17 11/14/17 History tablet albuterol sulfate HFA 90 2 puff INHALATION Q4H PRN g 09/18/17 11/14/17 History mcg/actuation aerosol inhaler fluticasone 100 mcg-vilanterol 25 1 inh INHALATION Q24H 09/18/17 11/14/17 History mcg/dose powder for inhalation fluticasone 50 mcg/actuation nasal 1 spray INTRANASAL ONCE 09/18/17 History spray,suspension gabapentin 600 mg tablet 600 mg PO BID tab 09/18/17 11/14/17 History metoprolol tartrate 50 mg tablet 50 mg PO BID 09/18/17 11/14/17 History Citalopram Hydrobromide [Celexa] 40 mg PO QDAY 11/14/17 11/14/17 History Nicotine [Nicotine Patch 21 mg TRANSDERMA ONCE 11/14/17 11/14/17 History 21mg/24hrs] Allergies Allergy/AdvReac Type Severity Reaction Status Date / Time eletriptan Allergy Severe S-SWELLS-OR Verified 10/16/17 14:04 AL/THROAT metronidazole Allergy Severe LIVER Verified 10/16/17 14:04 FAILURE/JAUNDICE sumatriptan Allergy Severe S-SWELLS-OR Verified 10/16/17 14:04 AL/THROAT acetaminophen AdvReac Mild NA-NAUSEA Verified 10/16/17 14:04 [From Tylenol-Codeine #3] codeine AdvReac Mild NA-NAUSEA Verified 10/16/17 14:04 [From Tylenol-Codei
== END 2017-11-15 15:50 | disposition home or self-care (01) ==
LOC: ER 13:13 → 2ND 13:51
PROVIDERS: Admitting Provider Emergency Medicine; Emergency Provider Emergency Medicine; PCP Emergency Medicine; Visit Provider Emergency Medicine
DX: R07.9 Chest pain, unspecified (principal); B34.9 Viral infection, unspecified; B97.29 Other coronavirus as the cause of diseases classified elsewhere; J44.9 Chronic obstructive pulmonary disease, unspecified; I10 Essential (primary) hypertension; Z72.0 Tobacco use
CPT/HCPCS: 36415; 71046; 78452; 80048; 80053; 82550; 82553; 83880; 84484; 85007; 85025; 85378; 87486; 87581; 87633; 87798; 93005; 93017; 93306; 94640; 96365; 99283; A9502; G0378; J2270; J2785

== ENCOUNTER → 2018-02-10 11:29 | Outpatient (REF) | payer OTHER, SELFPAY ==
[2018-02-10 14:19] LABS: Amphetamine/Metha Screen,Urine Negative ng/mL (<1000); Barbiturates Screen,Urine Negative ng/mL (<200); Benzodiazepines Screen,Urine Negative ng/mL (200); Cannabinoid Screen,Urine Negative ng/mL (<50); Cocaine Screen,Urine Negative ng/g (<300); Methadone Screen,Urine Negative ng/mL (<300); Opiate Screen,Urine Negative ng/mL (<300); Phencyclidine Screen,Urine Negative ng/mL (<25)
[2018-02-10 19:14] LABS: Free T4 (Free Thyroxine) 0.69 ng/dl (0.76-1.46); Thyroid Stimulating Hormone 2.33 uIU/ml (0.358-3.740)
== END ==
LOC: LAB 11:29
PROVIDERS: Visit Provider Emergency Medicine
DX: Z79.899 Other long term (current) drug therapy (principal); R53.83 Other fatigue
CPT/HCPCS: 80305; 84439; 84443

== ENCOUNTER → 2018-03-07 12:38 | Outpatient (CLI) | payer OTHER, SELFPAY ==
--- NOTE | 2018-03-07 12:39 | MM_ITS ---
MM Dig mamm BI DX w/CAD, US breast RT complete INDICATION: Follow-up abnormal mammogram ORDERING PHYSICIAN: Reid Sharma MD PATIENT AGE: 52 years COMPARISON: None TECHNIQUE: Standard bilateral images along with problem-solving views of the right breast FINDINGS: Previous mammogram of 05/07/2017 was reviewed as a category 3 and the patient was recommended to return in 6 months. Patient returns today for the follow-up which would be a 10 month follow-up. There is average fibroglandular tissue. Bilateral benign-appearing nodular opacities are present as before. A 5 mm nodule present in the outer aspect of the right breast stable since 01/18/2016. Asymmetric density in the deep aspect of the right breast is not demonstrated on today's study. It was difficult to get back as far on the breast on the CC images. Patient has had some weight loss from the previous exam. An X cc view. Demonstrate a small nodular density in the deep aspect of the right breast which may correspond to the original abnormality described in this area. This region measures 4 mm and has a benign appearance. No malignant appearing calcifications are evident. The previously noted small cluster of calcifications in the retroareolar region are unchanged. 4 mm nodular density is present in the retroareolar region and may correspond to a cyst as seen on the ultrasound. Palpable abnormality 3:00 region reported. No mammographic or sonographic abnormality at this region. Right breast ultrasound: 6 mm cyst at 6:00 near the nipple, 5 mm cyst at 10:00 Left mammogram: There is some architectural distortion in the lateral aspect of the left breast similar to 05/07/2017. Asymmetric density is present in the deep aspect of left breast on the MLO view but is felt to represent overlapping fibroglandular tissue and possible vessel IMPRESSION: Probably benign findings right breast regarding the 4 mm nodular density in the deep aspect of the right breast only well seen on the xcc view not as well demonstrated on today's exam. Continued 6 month follow-up recommended BI-RADS Category: 3 Benign Finding Short Term Follow-up RECOMMENDED FOLLOW-UP: 6M - 6 MONTH FOLLOW-UP Recommend 6 month right-sided mammographic and sonographic follow-up. NEGATIVE MAMMOGRAM AND NEGATIVE ULTRASOUND DOES NOT EXCLUDE THE POSSIBILITY OF MALIGNANCY. IF THERE IS INDEED A PALPABLE ABNORMALITY THEN INJECTED BE MANAGED ON A CLINICAL BASIS (A letter has been sent to the patient regarding results of the study.)
== END ==
PROVIDERS: PCP Emergency Medicine; Visit Provider Emergency Medicine
DX: R92.8 Other abnormal and inconclusive findings on diagnostic imaging of breast (principal)
CPT/HCPCS: 76641; 77066

== ENCOUNTER → 2018-07-03 11:35 | Outpatient (CLI) | payer OTHER, SELFPAY ==
[2018-07-03 12:02] LABS: Basophils # 0.1 K/mm3 (0-0.2); Basophils % 0.7 % (0.1-2.0); Eosinophils # 0.4 K/mm3 (0.0-0.4); Eosinophils % 4.2 % (0.1-12.0); Hematocrit 46.1 % (37.0-47.0); Lymphocytes # 2.1 K/mm3 (0.7-4.5); Lymphocytes % 20.7 K/mm3 (10-50); Mean Corpuscular HGB Conc 32.5 g/dL (31.8-35.4); Mean Corpuscular Hemoglobin 31.4 pg (27.0-31.2); Mean Corpuscular Volume 96.6 fl (81-99); Mean Platelet Volume 9.8 fl (7.4-10.4); Monocytes # 0.5 K/mm3 (0.1-1.0); Monocytes % 4.9 % (1.7-9.3); Neutrophils % 69.5 % (37.0-80.0); Platelet Count 144 K/mm3 (142-424); Red Blood Count 4.77 M/mm3 (4.20-5.40); Red Cell Distribution Width 13.8 % (11.5-17.5); White Blood Count 10.1 K/mm3 (4.8-10.8)
[2018-07-03 14:07] LABS: Alanine Aminotransferase 27 U/L (12-78); Albumin Level 3.8 gm/dL (3.4-5.0); Albumin/Globulin Ratio 1.1 (1.1-1.8); Alkaline Phosphatase 112 U/L (46-116); Anion Gap 11.3 mEq/L (5-15); Aspartate Amino Transferase 11 U/L (15-37); Bilirubin,Total 0.3 mg/dL (0.2-1.0); Blood Urea Nitrogen 21 mg/dL (7-18); Calcium 9.4 mg/dL (8.5-10.1); Carbon Dioxide 29 mmol/L (21.0-32.0); Chloride 101 mmol/L (98-107); Creatinine,Serum 0.74 mg/dL (0.55-1.02); Estimated Glomerular Filt Rate 83 ml/min (>60); GFR (African American) 100 ML/MIN (>60); Globulin 3.5 gm/dl (1.3-3.2); Glucose 87 mg/dL (74-106); Potassium 4.3 mmoL/L (3.5-5.1); Sodium 137 mmol/L (136-145); Total Protein,Serum 7.3 gm/dL (6.4-8.2)
== END ==
PROVIDERS: PCP Emergency Medicine; Visit Provider Internal Medicine Medical Oncology
DX: R94.5 Abnormal results of liver function studies (principal)
CPT/HCPCS: 36415; 80053; 85025

== ENCOUNTER → 2018-07-15 10:48 | Outpatient (CLI) | payer OTHER, SELFPAY ==
--- NOTE | 2018-07-15 10:49 | US_ITS ---
US transvaginal HISTORY: Right-sided pelvic pain ITS.REASON: pelvic pain ORDERING PHYSICIAN: Miguel Carreno MD PATIENT AGE: 53 years Comparison: None FINDINGS: There has been a prior hysterectomy. The vaginal cuff has an unremarkable appearance. There has been a prior left oophorectomy. The right ovary measures 5.4 x 1.7 x 4.3 cm and contains multiple small follicular cysts measuring up to 2 cm. These are somewhat irregular in nature. More larger on the previous ultrasound of 01/18/2016. No cul-de-sac fluid evident. IMPRESSION: 1. Small right ovarian cysts. 2. Prior left oophorectomy and hysterectomy
== END ==
PROVIDERS: PCP Emergency Medicine; Visit Provider Obstetrics & Gynecology
DX: R10.2 Pelvic and perineal pain (principal)
CPT/HCPCS: 76830

== ENCOUNTER → 2018-08-19 16:15 | Outpatient (CLI) | payer OTHER, SELFPAY | PROVIDERS: Visit Provider Obstetrics & Gynecology | DX: N94.9 Unspecified condition associated with female genital organs and menstrual cycle (principal) | CPT/HCPCS: 36415; 86316 ==

== ENCOUNTER → 2018-09-08 13:28 | Outpatient (CLI) | payer OTHER, SELFPAY ==
--- NOTE | 2018-09-08 13:30 | MM_ITS ---
MM Dig mamm DX unilat RT CAD, US breast RT complete Ordering Physician: Reid Sharma MD Patient Age: 53 years Female COMPARISON: Bilateral mammogram February 2018. Right mammogram April 2017 ultrasound right breast March 2018 INDICATION: Follow-up possible nodule right breast DIAGNOSTIC RIGHT MAMMOGRAM including spot views TECHNIQUE: MLO and cc view right breast along with spot CC and MLO view deep breast. . FINDINGS: Previous study showed a small density seen at the deep breast margin of film.. However it is no longer evident. No new areas of significant concern on today's study. Stable small benign nodule at the lateral right breast stable & can be be followed. Subtle retroareolar ovoid density is barely evident today. Subsequent Ultrasound reveals a stable small benign cyst and not of concern === ULTRASOUND RIGHT BREAST including axillary survey .. Small 5.4 mm cyst is again seen in the intermediate retroareolar region again for very subtle density here. No significant change since prior study . A tiny flat hypoechoic area which appears to be most likely debris-filled cyst barely evident at 10:00. Measure 7 mm x 3 mm. Can be followed . No solid nodule or areas of concern otherwise seen. Axillary survey unremarkable. IMPRESSION:----- 1. Stable right mammogram.-No new areas of concern. No significant appearing findings 2. Right breast ultrasound.- No areas of concern. .Stable small cyst retroareolar region. & Small debris-filled cyst 10:00 cyst 3. Patient to resume a annual scheduled bilateral follow-up BI-RADS Category: 2 Benign Finding(s) RECOMMENDED FOLLOW-UP: 6M 6 MONTH FOLLOW-UP Suggest bilateral mammogram 6-8 months to resume annual mammography schedule A letter has been sent to the patient regarding results of the study.)
== END ==
PROVIDERS: PCP Emergency Medicine; Visit Provider Emergency Medicine
DX: R92.8 Other abnormal and inconclusive findings on diagnostic imaging of breast (principal)
CPT/HCPCS: 76641; 77065

== ENCOUNTER → 2018-09-19 12:06 | Outpatient (CLI) | payer OTHER, SELFPAY ==
[2018-09-19 12:11] LABS: Microscopic, Urine URINE MICROSCOPIC (MICROSCOPIC)
[2018-09-19 12:42] LABS: Basophils % 0.3 % (0.1-2.0); Eosinophils # 0.1 K/mm3 (0.0-0.4); Eosinophils % 0.8 % (0.1-12.0); Hemoglobin 12.2 g/dL (12.2-16.2); Lymphocytes # 2.2 K/mm3 (0.7-4.5); Mean Corpuscular Hemoglobin 31.5 pg (27.0-31.2); Mean Corpuscular Volume 95.4 fl (81-99); Mean Platelet Volume 8.8 fl (7.4-10.4); Monocytes # 0.5 K/mm3 (0.1-1.0); Monocytes % 5.1 % (1.7-9.3); Neutrophils # 7.6 K/mm3 (1.8-7.8); Neutrophils % 72.8 % (37.0-80.0); Platelet Count 171 K/mm3 (142-424); Red Blood Count 3.88 M/mm3 (4.20-5.40); Red Cell Distribution Width 13.7 % (11.5-17.5); White Blood Count 10.4 K/mm3 (4.8-10.8)
[2018-09-19 13:09] LABS: Appearance,Urine SL CLOUDY (Clear); Bilirubin,Urine Negative (Negative); Blood, Urine Negative (Negative); Color,Urine YELLOW (Yellow); Glucose,Urine (UA) Negative (Negative); Ketones,Urine Negative (Negative); Leukocyte Esterase,Urine Negative (Negative); Nitrate,Urine Negative (Negative); PH,Urine 6.5 (5.0-8.5); Protein,Urine TRACE (Negative); Specific Gravity, Urine >= 1.030 (1.005-1.030)
[2018-09-19 13:35] LABS: Bacteria,Urine 1+ /lpf; Mucus,Urine 1+ /lpf
[2018-09-19 13:36] LABS: Hyaline Casts,Urine Occasional #/lpf (0)
[2018-09-19 13:54] LABS: Alanine Aminotransferase 44 U/L (12-78); Albumin Level 3.1 gm/dL (3.4-5.0); Alkaline Phosphatase 97 U/L (46-116); Anion Gap 13.7 mEq/L (5-15); Aspartate Amino Transferase 52 U/L (15-37); Bilirubin,Total 0.2 mg/dL (0.2-1.0); Blood Urea Nitrogen 23 mg/dL (7-18); Calcium 8.8 mg/dL (8.5-10.1); Carbon Dioxide 28 mmol/L (21.0-32.0); Chloride 106 mmol/L (98-107); Creatinine,Serum 0.81 mg/dL (0.55-1.02); Estimated Glomerular Filt Rate 75 ml/min (>60); GFR (African American) 90 ML/MIN (>60); Globulin 3.2 gm/dl (1.3-3.2); Glucose 106 mg/dL (74-106); Potassium 3.7 mmoL/L (3.5-5.1); Sodium 144 mmol/L (136-145); Total Protein,Serum 6.3 gm/dL (6.4-8.2)
== END ==
PROVIDERS: PCP Emergency Medicine; Visit Provider Obstetrics & Gynecology
DX: Z01.818 Encounter for other preprocedural examination (principal); N94.9 Unspecified condition associated with female genital organs and menstrual cycle
CPT/HCPCS: 36415; 80053; 81001; 85025

== ENCOUNTER → 2018-11-17 14:50 | Outpatient (CLI) | payer OTHER, SELFPAY ==
--- NOTE | 2018-11-17 14:54 | XR_ITS ---
XR chest 2V HISTORY: Cough and shortness of breath, COPD, smoker ITS.REASON: cough ORDERING PHYSICIAN: Kandi Cueto PATIENT AGE: 53 years COMPARISON: 09/15/2018 FINDINGS: The cardiomediastinal silhouette and pulmonary vascularity are within normal limits. There is continued blunting of the right CP angle. There is some patchy density in the right lung base laterally which may be due to superimposed infiltrate. The remaining lungs are clear. There are mild degenerative changes in the AC joints and spine. IMPRESSION: Chronic pleural changes in the right lung base with patchy superimposed density in the right lower lobe laterally suggesting superimposed pneumonia
[2018-11-17 18:24] LABS: Amphetamine/Metha Screen,Urine Negative ng/mL (<1000); Barbiturates Screen,Urine Negative ng/mL (<200); Benzodiazepines Screen,Urine Negative ng/mL (<200); Cannabinoid Screen,Urine Negative ng/mL (<50); Cocaine Screen,Urine Negative ng/mL (<300); Methadone Screen,Urine Negative ng/mL (<300); Opiate Screen,Urine Negative ng/mL (<300); Phencyclidine Screen,Urine Negative ng/mL (<25)
== END ==
LOC: LAB 17:29 → LAB.DROPOF 17:30
PROVIDERS: PCP Emergency Medicine; Visit Provider Nurse Practitioner Family
DX: J44.9 Chronic obstructive pulmonary disease, unspecified (principal); R05 Cough; R06.02 Shortness of breath; Z79.899 Other long term (current) drug therapy
CPT/HCPCS: 71046; 80305

== ENCOUNTER → 2018-12-25 13:50 | Outpatient (CLI) | payer OTHER, SELFPAY ==
[2018-12-25 14:42] VITALS: PULSE 68
== END ==
PROVIDERS: PCP Emergency Medicine; Visit Provider Emergency Medicine
DX: R06.02 Shortness of breath (principal)
CPT/HCPCS: 94060; 94640

== ENCOUNTER → 2018-12-30 07:51 | Outpatient (CLI) | payer OTHER, SELFPAY ==
--- NOTE | 2018-12-30 07:55 | US_ITS ---
US abdomen limited History: Ordering Physician:Loan Giraldo MD Patient Age: 53 years Comparison:177) Findings: The spleen has an unremarkable appearance measuring 11 x 10 cm. No splenic mass or splenomegaly. No perisplenic fluid collection. Left kidney shows no evidence of hydronephrosis. There are 2 left renal cysts in the mid polar region of the left kidney. IMPRESSION: Unremarkable ultrasound spleen.
[2018-12-30 09:09] LABS: Basophils % 0.4 % (0.1-2.0); Eosinophils # 0.3 K/mm3 (0.0-0.4); Eosinophils % 3.9 % (0.1-12.0); Hematocrit 41.4 % (37.0-47.0); Hemoglobin 13.6 g/dL (12.2-16.2); Lymphocytes # 1.9 K/mm3 (0.7-4.5); Lymphocytes % 23.7 % (10-50); Mean Corpuscular HGB Conc 32.8 g/dL (31.8-35.4); Mean Corpuscular Hemoglobin 30.9 pg (27.0-31.2); Mean Platelet Volume 9.5 fl (7.4-10.4); Monocytes # 0.3 K/mm3 (0.1-1.0); Monocytes % 4.3 % (1.7-9.3); Neutrophils # 5.4 K/mm3 (1.8-7.8); Neutrophils % 67.6 % (37.0-80.0); Platelet Count 139 K/mm3 (142-424); Red Cell Distribution Width 13.7 % (11.5-17.5); White Blood Count 8.1 K/mm3 (4.8-10.8)
[2018-12-30 10:06] LABS: Alanine Aminotransferase 23 U/L (12-78); Albumin Level 3.3 gm/dL (3.4-5.0); Alkaline Phosphatase 110 U/L (46-116); Anion Gap 12.6 mEq/L (5-15); Aspartate Amino Transferase 9 U/L (15-37); Bilirubin,Total 0.1 mg/dL (0.2-1.0); Blood Urea Nitrogen 21 mg/dL (7-18); Carbon Dioxide 27 mmol/L (21.0-32.0); Chloride 107 mmol/L (98-107); Creatinine,Serum 0.83 mg/dL (0.55-1.02); Estimated Glomerular Filt Rate 72 ml/min (>60); GFR (African American) 88 ML/MIN (>60); Globulin 3.3 gm/dl (1.3-3.2); Glucose 106 mg/dL (74-106); Potassium 3.6 mmoL/L (3.5-5.1); Sodium 143 mmol/L (136-145); Total Protein,Serum 6.6 gm/dL (6.4-8.2)
== END ==
PROVIDERS: PCP Internal Medicine Medical Oncology; Visit Provider Internal Medicine Medical Oncology
DX: R79.9 Abnormal finding of blood chemistry, unspecified (principal); D64.9 Anemia, unspecified
CPT/HCPCS: 36415; 76705; 80053; 85025

== ENCOUNTER → 2018-12-31 12:49 | Outpatient (CLI) | payer OTHER, SELFPAY ==
[2018-12-31 14:44] LABS: Thyroid Stimulating Hormone 3.16 uIU/ml (0.358-3.740)
[2019-01-01 10:03] LABS: RA Latex Turbid. <10.0 IU/mL (0.0-13.9)
[2019-01-02 18:29] LABS: Antinuclear Antibodies, IFA Negative (.)
== END ==
PROVIDERS: PCP Emergency Medicine; Visit Provider Internal Medicine Medical Oncology
DX: D64.9 Anemia, unspecified (principal)
CPT/HCPCS: 36415; 84443; 86038; 86431

== ENCOUNTER → 2019-01-16 14:34 | Outpatient (CLI) | payer OTHER, SELFPAY ==
--- NOTE | 2019-01-16 14:36 | CT_ITS ---
CT chest wo con HISTORY: ITS.REASON: smoker, cough ORDERING PHYSICIAN: Reid Sharma MD PATIENT AGE: 53 years COMPARISON: None Technique: Axial images obtained. Sagittal, and coronal reformatted images are also generated and reviewed. All CT scans at the facility use one or more dose reduction, viz: automated exposure control, ma/kV adjustment per patient size (including targeted exams where dose is matched to indication, i.e. head), or iterative reconstruction technique. FINDINGS: No mediastinal or hilar mass or adenopathy. Normal heart size. No coronary artery calcification identified. There is hyperinflation with attenuation of the peripheral pulmonary vessels consistent with COPD There is mild coarsening of the bronchovascular markings suggesting interstitial changes from smoking-related lung disease versus mild atelectasis or fibrosis of the right lower lobe. Calcified granuloma is present within the right upper lobe posteriorly. There is a 2 mm nodule in the left upper lobe medially and 3 mm nodule in the left apex posteriorly. A 3 mm nodule present in the right middle lobe. There are few scattered small lymph nodes in the axilla. There is mild nodularity of the left adrenal gland measuring -9 Hounsfield units consistent with adenoma. Small left renal cysts suspected and could be confirmed with ultrasound if clinically warranted. Mild degenerative changes thoracic spine. IMPRESSION: 1. COPD with mild coarsening of bronchovascular markings with old granulomatous disease. 2. Bilateral 3 mm nodules too small to characterize. Recommend 12 month follow-up 3. No acute finding
== END ==
PROVIDERS: PCP Emergency Medicine; Visit Provider Emergency Medicine
DX: R05 Cough (principal); R94.2 Abnormal results of pulmonary function studies; F17.200 Nicotine dependence, unspecified, uncomplicated
CPT/HCPCS: 71250

== ENCOUNTER → 2019-03-24 09:32 | Outpatient (POV) | payer OTHER, SELFPAY | PROVIDERS: Visit Provider Internal Medicine | DX: Z00.00 Encounter for general adult medical examination without abnormal findings (principal) ==

== ENCOUNTER → 2019-04-23 12:51 | Outpatient (CLI) | payer OTHER, SELFPAY ==
[2019-04-23 13:45] VITALS: PULSE 66; PULSE 67
== END ==
PROVIDERS: PCP Emergency Medicine; Visit Provider Internal Medicine
DX: J42 Unspecified chronic bronchitis (principal)
CPT/HCPCS: 94060; 94618; 94640; 94726; 94729

== ENCOUNTER → 2019-05-07 20:06 | Outpatient (CLI) | payer OTHER, SELFPAY | PROVIDERS: PCP Emergency Medicine; Visit Provider Nurse Practitioner Family | DX: G47.30 Sleep apnea, unspecified (principal); G47.19 Other hypersomnia | CPT/HCPCS: 95810 ==

== ENCOUNTER → 2019-06-30 11:37 | Outpatient (POV) | payer OTHER, SELFPAY | PROVIDERS: Visit Provider Internal Medicine | DX: Z00.00 Encounter for general adult medical examination without abnormal findings (principal) ==

== ENCOUNTER → 2019-07-07 10:07 | Outpatient (CLI) | payer OTHER, SELFPAY ==
[2019-07-07 11:16] LABS: Basophils % 0.6 % (0.1-2.0); Eosinophils # 0.4 K/mm3 (0.0-0.4); Eosinophils % 5.4 % (0.1-12.0); Hematocrit 42.7 % (37.0-47.0); Hemoglobin 13.2 g/dL (12.2-16.2); Lymphocytes # 1.6 K/mm3 (0.7-4.5); Lymphocytes % 24.3 % (10-50); Mean Corpuscular Hemoglobin 30.7 pg (27.0-31.2); Mean Corpuscular Volume 98.9 fl (81-99); Mean Platelet Volume 10.1 fl (7.4-10.4); Monocytes # 0.4 K/mm3 (0.1-1.0); Monocytes % 5.5 % (1.7-9.3); Neutrophils # 4.2 K/mm3 (1.8-7.8); Neutrophils % 64.2 % (37.0-80.0); Platelet Count 162 K/mm3 (142-424); Red Blood Count 4.31 M/mm3 (4.20-5.40); Red Cell Distribution Width 14.1 % (11.5-17.5); White Blood Count 6.5 K/mm3 (4.8-10.8)
[2019-07-07 11:26] LABS: Alanine Aminotransferase 79 U/L (12-78); Albumin Level 3.6 gm/dL (3.4-5.0); Alkaline Phosphatase 127 U/L (46-116); Anion Gap 11.7 mEq/L (5-15); Aspartate Amino Transferase 27 U/L (15-37); Bilirubin,Total 0.3 mg/dL (0.2-1.0); Blood Urea Nitrogen 24 mg/dL (7-18); Calcium 9.4 mg/dL (8.5-10.1); Carbon Dioxide 30 mmol/L (21.0-32.0); Chloride 104 mmol/L (98-107); Creatinine,Serum 0.96 mg/dL (0.55-1.02); Estimated Glomerular Filt Rate 61 ml/min (>60); GFR (African American) 74 ML/MIN (>60); Globulin 3.5 gm/dl (1.3-3.2); Glucose 103 mg/dL (74-106); Potassium 3.7 mmoL/L (3.5-5.1); Sodium 142 mmol/L (136-145); Total Protein,Serum 7.1 gm/dL (6.4-8.2)
== END ==
PROVIDERS: Internal Medicine Hematology & Oncology; Visit Provider Internal Medicine Medical Oncology
DX: D64.9 Anemia, unspecified (principal)
CPT/HCPCS: 36415; 80053; 85025

== ENCOUNTER → 2019-07-16 17:43 | Outpatient (CLI) | payer OTHER, SELFPAY ==
--- NOTE | 2019-07-16 17:46 | MM_ITS ---
PROCEDURE: MM DIG SCREENING MAMM BI W/CAD CLINICAL INDICATION: screening There is a history of breast cancer patient's great grandmother. There has been previous bilateral breast reduction surgery. COMPARISON: [id number] DIG MAMM-DX UNI A/VW-RT W/CAD from 05/22/2017 DXBI MM Dig mamm BI DX w/CAD from 03/07/2018 DXRT MM Dig mamm DX unilat RT CAD from 09/08/2018 TECHNIQUE: Standard CC and MLO images were obtained. R2 CAD reviewed. FINDINGS: Moderate scattered fibroglandular densities are seen throughout both breasts. There is a stable benign-appearing nodular density upper outer quadrant right breast. There is a stable small nodular density just deep to the nipple right breast as well. There are few benign-appearing microcalcifications in each breast. There is no new or suspicious lesion in either breast and no suspicious microcalcifications. IMPRESSION: Fibrofatty parenchyma with no suspicious lesions seen BI-RAD Category: 2 Benign Finding(s) FOLLOW-UP: 1YR 1 Year Follow-up (A letter has been sent to the patient regarding results of the study.) Dictated by: Dr. Lemuel Bettencourt MD 07/19/2019 17:[address] Lemuel Bettencourt MD in [place] 07/19/2019 17:33
== END ==
PROVIDERS: PCP Emergency Medicine; Visit Provider Emergency Medicine
DX: Z12.31 Encounter for screening mammogram for malignant neoplasm of breast (principal)
CPT/HCPCS: 77067

== ENCOUNTER → 2019-07-24 13:31 | Outpatient (CLI) | payer OTHER, SELFPAY ==
[2019-07-24 15:20] LABS: Cannabinoid Screen,Urine Negative ng/mL (<50)
[2019-07-24 15:32] LABS: Amphetamine/Metha Screen,Urine Positive ng/mL (<1000); Barbiturates Screen,Urine Negative ng/mL (<200); Benzodiazepines Screen,Urine Negative ng/mL (<200); Cocaine Screen,Urine Negative ng/mL (<300); Methadone Screen,Urine Negative ng/mL (<300); Opiate Screen,Urine Negative ng/mL (<300); Phencyclidine Screen,Urine Negative ng/mL (<25)
[2019-08-02 21:09] LABS: Amphetamine Positive (.); Amphetamines Positive (.); Methamphetamine Negative (Cutoff=500)
[2019-08-03 06:16] LABS: Amphetamine (GC/MS) >4000 ng/mL (Cutoff=500)
[2019-08-05 10:10] LABS: Alprazolam Negative (Cutoff=100); Benzodiazepines Positive ng/mL (Cutoff=100); Clonazepam Positive (.); Flurazepam Negative (Cutoff=100); Lorazepam Negative (Cutoff=100); Midazolam Negative (Cutoff=100); Temazepam Negative (Cutoff=100); Triazolam Negative (Cutoff=100)
[2019-08-05 12:18] LABS: Clonazepam Confirm 155 ng/mL (Cutoff=100)
== END ==
PROVIDERS: Visit Provider Emergency Medicine
DX: Z79.899 Other long term (current) drug therapy (principal)
CPT/HCPCS: 80305; 80324; 80346

== ENCOUNTER → 2019-09-29 19:12 | Outpatient (CLI) | payer MEDICAID, SELFPAY ==
[2019-09-29 19:54] LABS: Amphetamine/Metha Screen,Urine Negative ng/mL (<1000); Barbiturates Screen,Urine Negative ng/mL (<200); Benzodiazepines Screen,Urine Negative ng/mL (<200); Cannabinoid Screen,Urine Negative ng/mL (<50); Cocaine Screen,Urine Negative ng/mL (<300); Methadone Screen,Urine Negative ng/mL (<300); Opiate Screen,Urine Negative ng/mL (<300); Phencyclidine Screen,Urine Negative ng/mL (<25)
== END ==
PROVIDERS: Visit Provider Emergency Medicine
DX: M54.2 Cervicalgia (principal)
CPT/HCPCS: 80305

== ENCOUNTER → 2019-11-17 17:09 | Outpatient (CLI) | payer MEDICAID, SELFPAY ==
[2019-11-17 21:19] LABS: Amphetamine/Metha Screen,Urine Negative ng/ml (<1000)
[2019-11-17 21:20] LABS: Barbiturates Screen,Urine Negative ng/ml (<200)
[2019-11-17 21:21] LABS: Benzodiazepines Screen,Urine Negative ng/ml (<200); Cannabinoid Screen,Urine Negative ng/ml (<50)
[2019-11-17 21:22] LABS: Cocaine Screen,Urine Negative ng/ml (<300)
[2019-11-17 21:23] LABS: Methadone Screen,Urine Negative ng/ml (<300); Opiate Screen,Urine Negative ng/ml (<300)
[2019-11-17 21:24] LABS: Phencyclidine Screen,Urine Negative ng/ml (<25)
[2019-11-23 10:03] LABS: Opiates Negative (Cutoff=100)
== END ==
PROVIDERS: Visit Provider Emergency Medicine
DX: Z79.899 Other long term (current) drug therapy (principal)
CPT/HCPCS: 80305; 80361; 80365; G0480

== ENCOUNTER → 2019-11-18 12:36 | Outpatient (CLI) | payer MEDICAID, SELFPAY ==
[2019-11-18 13:16] LABS: Basophils % 0.4 % (0.1-2.0); Eosinophils # 0.5 K/mm3 (0.0-0.4); Eosinophils % 4.5 % (0.1-12.0); Hematocrit 41.5 % (37.0-47.0); Hemoglobin 13.6 g/dL (12.2-16.2); Lymphocytes # 2.5 K/mm3 (0.7-4.5); Lymphocytes % 21.7 % (10-50); Mean Corpuscular HGB Conc 32.6 g/dL (31.8-35.4); Mean Corpuscular Hemoglobin 31.1 pg (27.0-31.2); Mean Corpuscular Volume 95.2 fl (81-99); Monocytes # 0.4 K/mm3 (0.1-1.0); Monocytes % 3.8 % (1.7-9.3); Neutrophils # 7.9 K/mm3 (1.8-7.8); Neutrophils % 69.6 % (37.0-80.0); Platelet Count 167 K/mm3 (142-424); Red Blood Count 4.36 M/mm3 (4.20-5.40); Red Cell Distribution Width 14.3 % (11.5-17.5); White Blood Count 11.4 K/mm3 (4.8-10.8)
[2019-11-18 14:07] LABS: Chloride 102 mmol/L (98-107)
[2019-11-18 14:08] LABS: Potassium 4.1 mmoL/L (3.5-5.1); Sodium 136 mmol/L (136-145)
[2019-11-18 14:10] LABS: Alanine Aminotransferase 12 U/L (12-78); Alkaline Phosphatase 93 U/L (38-126); Anion Gap 11.1 mEq/L (5-15); Aspartate Amino Transferase 20 U/L (14-36); Bilirubin,Total 0.2 mg/dl (0.2-1.3); Blood Urea Nitrogen 24 mg/dl (7-17); Carbon Dioxide 27 mmol/L (22.0-30.0); Cholesterol 217 mg/dl (140-200); Estimated Glomerular Filt Rate 75 ml/min (>60); GFR (African American) 91 ML/MIN (>60); Triglycerides 130 mg/dl (30-150); VLDL Cholesterol 26 mg/dL (0-40)
[2019-11-18 14:11] LABS: Albumin Level 3.8 g/dl (3.5-5.0); Albumin/Globulin Ratio 1.5 (1.1-1.8); Calcium 9.4 mg/dl (8.4-10.2); Chol/HDL Ratio 3.6 (1-3.5); Globulin 2.6 g/dL (1.3-3.2); Glucose 141 mg/dl (74-100); HDL Cholesterol 60 mg/dl (40-60); Total Protein,Serum 6.4 g/dl (6.3-8.2)
[2019-11-18 14:22] LABS: Direct LDL Cholesterol 126.07 mg/dL (100-129)
[2019-11-18 14:42] LABS: Thyroid Stimulating Hormone 6.83 uIU/mL (0.465-4.68)
[2019-11-19 12:38] LABS: Vitamin D 25 Hydroxy 10.8 ng/mL (30.0-100.0)
[2019-11-20 17:21] LABS: Hemoglobin A1C 6.3 % (4.0-6.0)
== END ==
PROVIDERS: Physician Assistant; Visit Provider Emergency Medicine
DX: I10 Essential (primary) hypertension (principal); R73.9 Hyperglycemia, unspecified; E55.9 Vitamin D deficiency, unspecified; Z79.899 Other long term (current) drug therapy
CPT/HCPCS: 36415; 80053; 80061; 82652; 83036; 84439; 84443; 85025

== ENCOUNTER → 2019-12-04 13:31 | Outpatient (CLI) | payer MEDICAID, SELFPAY ==
--- NOTE | 2019-12-04 13:31 | MR_ITS ---
PROCEDURE: MR CERVICAL SPINE WO CON CLINICAL INDICATION: neck pain Neck pain with bilateral hand cramping and tingling COMPARISON: [facility]/O MRI-C-SPINE W/O from 03/01/2017 TECHNIQUE: Standard multiplanar multiecho sequences are performed without contrast. 3-D MIP and myelographic images are also rendered and reviewed FINDINGS: There is normal alignment. The craniocervical junction has an unremarkable appearance. C2-C3: Unremarkable. C3-C4: Unremarkable. C4-C5: Unremarkable. C5-C6: Unremarkable. C6-C7: Minimal central disc protrusion without impingement not significantly changed. C7-T1: Unremarkable.. Cervical cord has an unremarkable appearance IMPRESSION: Minimal central disc protrusion C6-C7 without impingement. Overall no significant change with no acute finding. No extruded herniated disc or canal stenosis. Dictated by: Grey Felder MD 12/04/2019 15:54 Electronically signed by Grey Felder MD in [place] 12/04/2019 15:54
== END ==
PROVIDERS: PCP Emergency Medicine; Visit Provider Emergency Medicine
DX: M54.2 Cervicalgia (principal)
CPT/HCPCS: 72141; 76376

== ENCOUNTER 2020-01-07 18:04 | Emergency (ER) | payer MEDICAID, SELFPAY ==
[2020-01-07 18:05] VITALS: BP 142/76; PULSE 65; RESP 22; TEMP 37.2; O2SAT 97; BMI 31.2
--- NOTE | 2020-01-07 18:09 | PC.NURSE ---
Dr Ayers returned call.
--- NOTE | 2020-01-07 18:19 | ECG_ITS ---
APPROVED REPORT Exam: Resting ECG HR:59 bpm ECG Measurements Heart Rate 59 AXES IN 118 P 45 QRSd 90 QRS 46 QT 392 T 46 QTc 388 <Conclusion> Sinus bradycardia Otherwise normal ECG Electronically signed by : Sarkis Monk, 01/08/2020 08:03:43
--- NOTE | 2020-01-07 18:31 | HMH.EDGENADL ---
ED Disposition Clinical Impression: Acute bronchitis Qualifiers: Bronchitis organism: unspecified organism Qualified Code(s): J20.9 - Acute bronchitis, unspecified Acute sinusitis Qualifiers: Sinusitis location: unspecified location Recurrence: not specified as recurrent Qualified Code(s): J01.90 - Acute sinusitis, unspecified Disposition: Home, Self-Care Condition on Discharge: Good Instructions: DI for Sinusitis, DI for Acute Bronchitis Additional Instructions: Recommend self quarantine for 2 weeks. Augmentin and prednisone as prescribed. Return to the emergency room for severe cough or shortness of breath. Follow-up with primary care doctor if not improving in 1 week. Additional instructions for ACUTE BRONCHITIS: Use Tylenol or Ibuprofen for pain or fever. Rest and plenty of fluids. Return immediately if you have an uncontrollable fever greater than 102 degrees, severe headache or neck stiffness, difficulty breathing or shortness of breath, persistent vomiting, severe sore throat or inability to swallow. See your physician if not improving in 4-5 days. Prescriptions: Amoxicillin/Potassium Clav [Augmentin 875-125 Tablet] 1 tab PO Q12H #20 tab Transmission Status: Pending to [facility] predniSONE [Prednisone 20mg Tab] 20 mg PO BID #10 tab Transmission Status: Pending to [facility] Referrals: Reid Sharma MD [Primary Care Provider] - Forms: Work/School Release - Critical Care Critical Care Time: No Attestation: On 01/07/20, the high probability of a clinically significant, sudden or life threatening deterioration of the following system(s) required my full and direct attention, intervention and personal management. The time I documented below is in addition to time spent performing reported procedures but includes the following listed in this critical care notation. Medical Decision Making - Medical Records Medical records reviewed: Yes: I reviewed the patient's medical records. - Edid Inquiry Pt receiving controlled substance: No Vital Signs: 01/07/20 18:05 Temperature 99.0 F Temperature Source Oral Pulse Rate [Right] 65 Respiratory Rate 22 Blood Pressure [Right Arm] 142/76 H Blood Pressure Mean [Right Arm] 98 02 Sat by Pulse Oximetry 97 - Lab Data Lab results reviewed: Yes: I reviewed the patient's lab results. Lab Results 01/07/20 17:00: Urine Color Yellow, Urine Appearance Clear, Urine pH 6.0, Ur Specific [place] >= 1.030, Urine Protein Trace, Urine Glucose (UA) Negative, Urine Ketones Trace, Urine Blood Negative, Urine Nitrate Negative, Urine Bilirubin Negative, Urine Urobilinogen 0.2, Ur Leukocyte Esterase Negative 01/07/20 18:28: WBC 7.4, RBC 3.97 L, Hgb 13.2, Hct 38.2, MCV 96.4, MCH 33.4 H, MCHC 34.7, RDW 13.9, Plt Count 143, MPV 10.1, Neut % (Auto) 64.8, Lymph % (Auto) 22.8, [place] % (Auto) 4.2, Eos % (Auto) 7.1, Baso % (Auto) 1.1, Neut # (Auto) 4.8, Lymph # (Auto) 1.7, [place] # (Auto) 0.3, Eos # (Auto) 0.5 H, Baso # (Auto) 0.1 01/07/20 18:28: Sodium 141, Potassium 3.7, Chloride 109 H, Carbon Dioxide 26, Anion Gap 9.7, BUN 21 H, Creatinine 0.70, Estimated Creat Clear 108, Estimated GFR 88, Est GFR ( Amer) 106, Glucose 134 H, Calcium 9.6, Troponin I < 0.01 01/07/20 18:28: Lactate 1.6 01/07/20 18:28: Influenza Type A Ag Negative, Influenza Type B Ag Negative 01/07/20 18:28: Group A Strep Rapid Negative 01/07/20 18:28: Total Bilirubin 0.2, Direct Bilirubin 0.0, Conjugated Bilirubin 0.0, Indirect Bilirubin 0.2, Unconjugated Bilirubin 0.2, AST 25, ALT 23, Alkaline Phosphatase 75, Total Protein 6.6, Albumin 3.8 Result diagrams: 01/07/20 18:28 01/07/20 18:28 Orders (Tests/Meds): ORDERS Category Date Time Status XR chest portable Stat Exams 01/07/20 18:35 Taken Troponin I Q3H Lab 01/07/20 21:45 Ordered Troponin I Q3H Lab 01/08/20 00:45 Ordered Urinalysis-Acute [Urinalysis and Microscopic] Stat Lab 01/07/20 17:00 Results Blood
[2020-01-07 18:34] VITALS: BMI 31.2
--- NOTE | 2020-01-07 18:35 | XR_ITS ---
PROCEDURE: XR CHEST PORTABLE CLINICAL HISTORY: cough COMPARISON: No exams were available for comparison FINDINGS: The cardiomediastinal silhouette and pulmonary vascularity are within normal limits. The lungs are clear without infiltrates, suspicious nodules, or pleural effusions. No acute bony abnormalities. IMPRESSION: No acute findings. Dictated by: Grey Felder MD 01/07/2020 19:18 Electronically signed by Grey Felder MD in [place] 01/07/2020 19:18
[2020-01-07 18:41] LABS: Basophils # 0.1 K/mm3 (0-0.2); Basophils % 1.1 % (0.1-2.0); Eosinophils # 0.5 K/mm3 (0.0-0.4); Eosinophils % 7.1 % (0.1-12.0); Hematocrit 38.2 % (37.0-47.0); Hemoglobin 13.2 g/dL (12.2-16.2); Lymphocytes # 1.7 K/mm3 (0.7-4.5); Lymphocytes % 22.8 % (10-50); Mean Corpuscular HGB Conc 34.7 g/dL (31.8-35.4); Mean Corpuscular Hemoglobin 33.4 pg (27.0-31.2); Mean Corpuscular Volume 96.4 fl (81-99); Mean Platelet Volume 10.1 fl (7.4-10.4); Monocytes # 0.3 K/mm3 (0.1-1.0); Monocytes % 4.2 % (1.7-9.3); Neutrophils # 4.8 K/mm3 (1.8-7.8); Neutrophils % 64.8 % (37.0-80.0); Platelet Count 143 K/mm3 (142-424); Red Blood Count 3.97 M/mm3 (4.20-5.40); Red Cell Distribution Width 13.9 % (11.5-17.5); White Blood Count 7.4 K/mm3 (4.8-10.8)
[2020-01-07 18:48] LABS: Anion Gap 9.7 mEq/L (5-15); Bilirubin,Unconjugated 0.2 mg/dL (0.0-1.1); Blood Urea Nitrogen 21 mg/dl (7-17); Calcium 9.6 mg/dl (8.4-10.2); Carbon Dioxide 26 mmol/L (22.0-30.0); Chloride 109 mmol/L (98-107); Creatinine Clearance Estimated 108 mL/min (50-200); Estimated Glomerular Filt Rate 88 ml/min (>60); GFR (African American) 106 ML/MIN (>60); Glucose 134 mg/dl (74-100); Potassium 3.7 mmoL/L (3.5-5.1); Sodium 141 mmol/L (136-145)
[2020-01-07 18:49] LABS: Alanine Aminotransferase 23 U/L (12-78); Albumin Level 3.8 g/dl (3.5-5.0); Alkaline Phosphatase 75 U/L (38-126); Aspartate Amino Transferase 25 U/L (14-36); Bilirubin,Indirect 0.2 mg/dL (0.0-0.9); Bilirubin,Total 0.2 mg/dl (0.2-1.3); Total Protein,Serum 6.6 g/dl (6.3-8.2)
[2020-01-07 18:50] LABS: Lactic Acid 1.6 mmol/L (0.7-2.1)
[2020-01-07 18:51] LABS: Strep Scrn Group A (Rapid) Negative (Negative)
--- NOTE | 2020-01-07 18:58 | PC.NURSE ---
Pt up to restroom
[2020-01-07 19:00] LABS: Troponin I < 0.01 ng/ml (0.00-0.034)
[2020-01-07 19:03] LABS: Microscopic, Urine URINE MICROSCOPIC (MICROSCOPIC)
[2020-01-07 19:06] LABS: Appearance,Urine CLEAR (Clear); Bilirubin,Urine Negative (Negative); Blood, Urine Negative (Negative); Color,Urine YELLOW (Yellow); Glucose,Urine (UA) Negative (Negative); Ketones,Urine TRACE (Negative); Leukocyte Esterase,Urine Negative (Negative); Nitrate,Urine Negative (Negative); Protein,Urine TRACE (Negative); Specific Gravity, Urine >= 1.030 (1.005-1.030); Urobilinogen,Urine 0.2 EU/dl (0.2)
[2020-01-07 19:13] LABS: Amorphous Sediment,Urine 2+ /lpf; Bacteria,Urine 1+ /lpf; Squamous Epithelial Cell,Urine 20-50 #/hpf (0-5)
[2020-01-07 19:29] VITALS: BP 144/82; PULSE 74; RESP 16; TEMP 37.3; O2SAT 97
== END 2020-01-07 19:31 | disposition home or self-care (01) ==
PROVIDERS: Emergency Provider Emergency Medicine; PCP Emergency Medicine
DX: J20.9 Acute bronchitis, unspecified (principal); J01.90 Acute sinusitis, unspecified; D69.41 Evans syndrome; F17.210 Nicotine dependence, cigarettes, uncomplicated; Z79.899 Other long term (current) drug therapy; Z88.2 Allergy status to sulfonamides; Z88.5 Allergy status to narcotic agent; E03.9 Hypothyroidism, unspecified; I10 Essential (primary) hypertension; E78.5 Hyperlipidemia, unspecified; J44.9 Chronic obstructive pulmonary disease, unspecified; M79.7 Fibromyalgia; Z90.49 Acquired absence of other specified parts of digestive tract
CPT/HCPCS: 71045; 80048; 80076; 81001; 83605; 84484; 85025; 87040; 87275; 87276; 87430; 93005; 99284

== ENCOUNTER → 2020-02-05 07:52 | Outpatient (CLI) | payer MEDICAID, SELFPAY ==
--- NOTE | 2020-02-05 08:14 | CT_ITS ---
PROCEDURE: CT CHEST WO CON CLINICAL INDICATION: 12 mth f/u nodule COMPARISON: CHESTWO CT chest wo con from 01/16/2019 CT ANGIO CHEST from 12/12/2019 TECHNIQUE: Axial images obtained with sagittal and coronal reformats. All CT scans at the facility use one or more dose reduction, viz: automated exposure control, ma/kV adjustment per patient size (including targeted exams where dose is matched to indication, i.e. head), or iterative reconstruction technique. FINDINGS: HEART AND MEDIASTINAL STRUCTURES: Unremarkable. LUNGS AND PLEURAL SPACES: There is hyperinflation of the lung [place]. There is minimal postinflammatory scarring posterior basilar segment right lower lobe. There is minimal pleural and parenchymal scarring right costophrenic angle. The calcified granulomas again seen right upper lobe posterior segment. There is a tiny partially calcified granuloma left upper lobe posteriorly which was seen on the previous exam but has shown slight interval calcification. There is a 2-3 mm nodule right middle lobe not definitely calcified stable and unchanged from the previous exam. BONY STRUCTURES: No acute bony abnormalities apparent. UPPER ABDOMEN: Unremarkable. ADDITIONAL FINDINGS: Again noted is a small hypodense nodule left adrenal gland likely an adenoma or cyst IMPRESSION: Mild COPD with evidence of old granulomatous disease, interval calcification of the tiny nodule left upper lobe, stable noncalcified nodule right middle lobe. If there is a strong smoking history consider a follow-up study in 12-18 months for continuing evaluation. Dictated by: Dr. Lemuel Bettencourt MD 02/05/2020 11:[address] Lemuel Bettencourt MD in [place] 02/05/2020 11:37
== END ==
PROVIDERS: PCP Emergency Medicine; Visit Provider Emergency Medicine
DX: R91.1 Solitary pulmonary nodule (principal)
CPT/HCPCS: 71250

== ENCOUNTER 2020-05-21 16:44 | Emergency (ER) | payer MEDICAID, SELFPAY ==
[2020-05-21 16:55] VITALS: BP 153/68; PULSE 69; RESP 18; TEMP 36.8; O2SAT 99; BMI 32.2
--- NOTE | 2020-05-21 16:56 | XR_ITS ---
PROCEDURE: XR HAND RT MIN 3V CLINICAL INDICATION: SLAMMED HAND IN VAN DOOR Posttraumatic pain COMPARISON: CR Hand R from 04/18/2019 CR Hand L from 04/18/2019 FINDINGS: No fracture or dislocation. No lytic or blastic change. There is normal mineralization. Other findings:None. IMPRESSION: No acute findings. Dictated by: Grey Felder MD 05/21/2020 17:49 Grey Felder MD in [place] 05/21/2020 17:49
[2020-05-21 17:08] VITALS: BP 153/68; PULSE 69; RESP 18; TEMP 36.8; O2SAT 99; BMI 32.3
[2020-05-21 17:58] VITALS: BP 153/68; PULSE 69; RESP 18; TEMP 36.8; O2SAT 99
--- NOTE | 2020-05-21 18:08 | HMH.EDUTC ---
[facility] [place] Clinical Impression: Crushing injury of right hand Qualifiers: Encounter type: initial encounter Qualified Code(s): S67.21XA - Crushing injury of right hand, initial encounter Disposition: Home, Self-Care Condition on Discharge: Good Instructions: Finger Sprain, DI for Crush Injury Additional Instructions: Rest the extremity, apply ice for 15 minutes as tolerated three or four times per day, Elevate the extremity as tolerated while you are resting. Take ibuprofen for pain. I sent in a prescription to your pharmacy. Follow up with Dr. Matias (orthopedics). I put in a referral but you need to call her office and schedule an appointment. Follow up with your regular doctor. GO TO THE ER FOR ANY WORSENING SYMPTOMS Prescriptions: Ibuprofen [Ibuprofen 600mg Tablet] 600 mg PO Q6HP PRN #30 tab PRN Reason: Mild Pain Transmission Status: Received by [facility] Referrals: Reid Sharma MD [Primary Care Provider] - Valdez Matias MD [Staff Physician] - Forms: Work/School Release Time of Disposition: 18:09 Medical Decision Making - Medical Records Medical records reviewed: No: I reviewed the patient's medical records. - Eddi Inquiry Pt receiving controlled substance: No Vital Signs: 05/21/20 16:55 05/21/20 17:08 05/21/20 17:58 Temperature 98.2 F 98.2 F 98.2 F Temperature Source Oral Oral Pulse Rate 69 Pulse Rate [Left Radial] 69 69 Respiratory Rate 18 18 18 Blood Pressure 153/68 H Blood Pressure [Right Arm] 153/68 H 153/68 H Blood Pressure Mean [Right Arm] 96 96 Blood Pressure Source [Right Arm] Automatic Cuff Automatic Cuff Blood Pressure Position [Right Arm] Sitting Sitting 02 Sat by Pulse Oximetry 99 99 Oxygen Delivery Method Room Air Room Air - Radiology Data #1 Image(s): Hand Image Reviewed: Yes I reviewed the patient's radiology image, Yes I have reviewed radiologist's interpretation PROCEDURE: XR HAND RT MIN 3V CLINICAL INDICATION: SLAMMED HAND IN VAN DOOR Posttraumatic pain COMPARISON: CR Hand R from 04/18/2019 CR Hand L from 04/18/2019 FINDINGS: No fracture or dislocation. No lytic or blastic change. There is normal mineralization. Other findings:None. IMPRESSION: No acute findings. Dictated by: Grey Felder MD 05/21/2020 17:49 Grey Felder MD in [place] 05/21/2020 17:49 [facility] [place] - General Stated complaint: AO 05/21 injury to right hand/finger Time Seen by Provider: 05/21/20 16:55 Mode of Arrival: Ambulatory Source of Information: Patient Limitations: No Limitations Description of Symptoms (Recalled from Triage Doc. 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 She has pain of all 4 fingers. She states that she is moving the fingers well, but it does hurt. - Related Data Home Medications Medication Instructions Recorded Confirmed fluticasone propionate 50 1 spray INTRANASAL ONCE 09/18/17 04/18/20 mcg/actuation nasal spray,suspension fluticasone furoate 100 1 inh INHALATION DAILY each 02/24/20 04/18/20 mcg-vilanterol 25 mcg/dose inhalation powder montelukast 10 mg tablet 10 mg PO QHS tab 04/18/20 04/18/20 varenicline 0.5 mg (11)-1 mg (42) tab PO 04/18/20 04/18/20 tablets in a dose pack Previous Rx's Medication Instructions Recorded mupirocin 2 % topical ointment 1 applic TOPICAL BID #15 g 02/17/19 acetaminophen 300 mg-codeine 30 mg 1 tab PO TID PRN #90 tab 06/23/19 tablet ondansetron HCl 4 mg tablet 4 mg PO TID PRN #30 tab 08/25/19 tiotropium bromide 2.5 See Rx Ins
== END 2020-05-21 18:18 | disposition home or self-care (01) ==
PROVIDERS: Emergency Provider Nurse Practitioner Family; PCP Emergency Medicine
DX: S67.21XA Crushing injury of right hand, initial encounter (principal); W23.0XXA Caught, crushed, jammed, or pinched between moving objects, initial encounter; Y92.89 Other specified places as the place of occurrence of the external cause; E78.5 Hyperlipidemia, unspecified; I10 Essential (primary) hypertension; F41.8 Other specified anxiety disorders; J44.9 Chronic obstructive pulmonary disease, unspecified; E03.9 Hypothyroidism, unspecified; M79.7 Fibromyalgia; F17.210 Nicotine dependence, cigarettes, uncomplicated; Z88.1 Allergy status to other antibiotic agents; Z88.2 Allergy status to sulfonamides; Z88.8 Allergy status to other drugs, medicaments and biological substances; Z90.49 Acquired absence of other specified parts of digestive tract; Z90.79 Acquired absence of other genital organ(s); Z79.899 Other long term (current) drug therapy
CPT/HCPCS: 29125; 73130; 99202

== ENCOUNTER → 2020-05-24 11:12 | Outpatient (CLI) | payer MEDICAID, SELFPAY ==
[2020-05-24 12:01] LABS: Basophils % 0.7 % (0.1-2.0); Eosinophils # 0.4 K/mm3 (0.0-0.4); Eosinophils % 7.9 % (0.1-12.0); Hematocrit 37.4 % (37.0-47.0); Hemoglobin 12.9 g/dL (12.2-16.2); Lymphocytes # 1.9 K/mm3 (0.7-4.5); Lymphocytes % 34.1 % (10-50); Mean Corpuscular HGB Conc 34.5 g/dL (31.8-35.4); Mean Corpuscular Hemoglobin 32.9 pg (27.0-31.2); Mean Corpuscular Volume 95.3 fl (81-99); Mean Platelet Volume 10.1 fl (7.4-10.4); Monocytes # 0.3 K/mm3 (0.1-1.0); Monocytes % 6.1 % (1.7-9.3); Neutrophils # 2.8 K/mm3 (1.8-7.8); Neutrophils % 51.3 % (37.0-80.0); Platelet Count 112 K/mm3 (142-424); Red Blood Count 3.93 M/mm3 (4.20-5.40); Red Cell Distribution Width 14.2 % (11.5-17.5); White Blood Count 5.6 K/mm3 (4.8-10.8)
[2020-05-24 12:23] LABS: Chloride 108 mmol/L (98-107); Potassium 4.4 mmoL/L (3.5-5.1); Sodium 141 mmol/L (136-145)
[2020-05-24 12:25] LABS: Blood Urea Nitrogen 18 mg/dl (7-17); Estimated Glomerular Filt Rate 75 ml/min (>60); GFR (African American) 91 ML/MIN (>60)
[2020-05-24 12:26] LABS: Alanine Aminotransferase 49 U/L (12-78); Albumin Level 3.7 g/dl (3.5-5.0); Albumin/Globulin Ratio 1.4 (1.1-1.8); Alkaline Phosphatase 109 U/L (38-126); Anion Gap 11.4 mEq/L (5-15); Aspartate Amino Transferase 37 U/L (14-36); Bilirubin,Total 0.2 mg/dl (0.2-1.3); Calcium 9.6 mg/dl (8.4-10.2); Carbon Dioxide 26 mmol/L (22.0-30.0); Globulin 2.7 g/dL (1.3-3.2); Glucose 100 mg/dl (74-100); Total Protein,Serum 6.4 g/dl (6.3-8.2)
== END ==
PROVIDERS: PCP Internal Medicine Medical Oncology; Visit Provider Podiatrist
DX: R73.9 Hyperglycemia, unspecified (principal); B35.3 Tinea pedis; R21 Rash and other nonspecific skin eruption
CPT/HCPCS: 36415; 80053; 83036; 85025

== ENCOUNTER → 2020-05-31 12:54 | Outpatient (CLI) | payer MEDICAID, SELFPAY ==
--- NOTE | 2020-05-31 12:56 | US_ITS ---
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: Josi Pennington RDCS Indications Claudication: Rest Pain: Current Smoker Risk Factors History of Smoking Pressures/Indices Right Indices Left Indices Brachial 119.00 mmHg Brachial 115.00 mmHg Low Thigh 113.00 mmHg 0.95 Low Thigh 118.00 mmHg 0.99 Calf 124.00 mmHg 1.04 Calf 120.00 mmHg 1.01 Ankle(PT) 125.00 mmHg 1.05 Ankle(PT) 121.00 mmHg 1.02 Ankle(DP) 125.00 mmHg 1.05 Ankle(DP) 126.00 mmHg 1.06 Digit 98.00 mmHg 0.82 Digit 102.00 mmHg 0.86 Findings R LESVIA 1.1 L LESVIA 1.1 R TBI .8 L TBI .9 NORMAL PULSES AND WAVEFORMS Conclusion R LESVIA 1.1 L LESVIA 1.1 R TBI .8 L TBI .9 NORMAL PULSES AND WAVEFORMS Normal appearing resting noninvasive lower extremity arterial study. Electronically signed by : Grey Felder MD 05/31/2020 15:52:07
== END ==
PROVIDERS: PCP Emergency Medicine; Visit Provider Podiatrist
DX: R09.89 Other specified symptoms and signs involving the circulatory and respiratory systems (principal)
CPT/HCPCS: 93923

== ENCOUNTER 2020-07-04 22:11 | Emergency (ER) | payer MEDICAID, SELFPAY ==
[2020-07-04 22:24] VITALS: BP 151/68; PULSE 94; RESP 18; TEMP 36.9; O2SAT 99; BMI 31.2
--- NOTE | 2020-07-04 22:33 | CT_ITS ---
PROCEDURE: CT ABDOMEN PELVIS W CON CLINICAL INDICATION: belly pain Right lower quadrant pain with nausea COMPARISON: CT ABDPELW/O CT ABD PELVIS W/O CONTRAST from 01/08/2014 TECHNIQUE: IV Contrast: 75ML OPTIRAY 350 Oral Contrast None Axial images obtained with sagittal and coronal reformats. All CT scans at the facility use one or more dose reduction, viz: automated exposure control, ma/kV adjustment per patient size (including targeted exams where dose is matched to indication, i.e. head), or iterative reconstruction technique. FINDINGS: LOWER THORAX: There are mild atelectatic changes in the right lung base ABDOMEN & PELVIS: Prior cholecystectomy. The liver, spleen, and pancreas have an unremarkable appearance. There are bilateral adrenal nodules present. These are only slightly more prominent compared to the previous exam of 01/08/2014 and may be due to adenomas. Unenhanced exam or MRI may confirm. Bilateral renal cysts are noted. No renal or ureteral calculi. No hydronephrosis. Stomach is minimally distended with ingested material. No evidence of appendicitis. No intestinal obstruction or free air. There are scattered colonic diverticula but no evidence of diverticulitis. There is mild amount of retained colonic feces. Urinary bladder wall is mildly thickened but may be due to nondistention. There are few small inguinal lymph nodes. There is a partially calcified 1 cm opacity in the left lower quadrant and could be due to an area of fat necrosis a 1 cm opacity is present in the anterior abdominal wall superiorly. There is a suggestion of a minimal defect in the abdominal wall at this area as well. Developing fat necrosis and a small hernia is a consideration. No acute bony findings. IMPRESSION: 1. No evidence of acute appendicitis or obstructing renal or ureteral calculi. 2. Mild amount of retained colonic feces. 3. There is a 1 cm opacity in the anterior abdominal wall fat with suggestion of a small abdominal wall defect at this area possibly due to infarcted area of fat within the hernia. Follow-up may confirm stability. 4. Other nonacute findings as described above Dictated by: Grey Felder MD 07/05/2020 06:34 Grey Felder MD in [place] 07/05/2020 06:34
[2020-07-04 22:38] LABS: Microscopic, Urine URINE MICROSCOPIC (MICROSCOPIC)
[2020-07-04 22:40] LABS: Basophils # 0.1 K/mm3 (0-0.2); Basophils % 0.6 % (0.1-2.0); Eosinophils # 0.6 K/mm3 (0.0-0.4); Eosinophils % 7.3 % (0.1-12.0); Lymphocytes # 2.4 K/mm3 (0.7-4.5); Lymphocytes % 27.6 % (10-50); Mean Corpuscular HGB Conc 32.5 g/dL (31.8-35.4); Mean Corpuscular Hemoglobin 31.7 pg (27.0-31.2); Mean Corpuscular Volume 97.4 fl (81-99); Monocytes # 0.4 K/mm3 (0.1-1.0); Monocytes % 4.8 % (1.7-9.3); Neutrophils # 5.1 K/mm3 (1.8-7.8); Neutrophils % 59.7 % (37.0-80.0); Platelet Count 144 K/mm3 (142-424); Red Cell Distribution Width 13.8 % (11.5-17.5); White Blood Count 8.5 K/mm3 (4.8-10.8)
[2020-07-04 22:44] LABS: Appearance,Urine CLEAR (Clear); Bilirubin,Urine Negative (Negative); Blood, Urine Negative (Negative); Color,Urine YELLOW (Yellow); Glucose,Urine (UA) Negative (Negative); Ketones,Urine Negative (Negative); Leukocyte Esterase,Urine Negative (Negative); Nitrate,Urine Negative (Negative); Protein,Urine Negative (Negative)
[2020-07-04 22:46] LABS: Chloride 106 mmol/L (98-107); Potassium 4.1 mmoL/L (3.5-5.1); Sodium 140 mmol/L (136-145)
[2020-07-04 22:49] LABS: Alanine Aminotransferase 21 U/L (12-78); Alkaline Phosphatase 128 U/L (38-126); Amylase 94 U/L (30-110); Anion Gap 10.1 mEq/L (5-15); Aspartate Amino Transferase 23 U/L (14-36); Bilirubin,Total 0.2 mg/dl (0.2-1.3); Blood Urea Nitrogen 16 mg/dl (7-17); Calcium 9.5 mg/dl (8.4-10.2); Carbon Dioxide 28 mmol/L (22.0-30.0); Creatinine Clearance Estimated 83 mL/min (50-200); Estimated Glomerular Filt Rate 65 ml/min (>60); GFR (African American) 79 ML/MIN (>60); Glucose 129 mg/dl (74-100); Lipase 150 U/L (23-300)
[2020-07-04 22:50] LABS: Albumin Level 4.3 g/dl (3.5-5.0); Albumin/Globulin Ratio 1.4 (1.1-1.8); Globulin 3.1 g/dL (1.3-3.2); Total Protein,Serum 7.4 g/dl (6.3-8.2)
[2020-07-04 23:22] VITALS: BP 138/86; PULSE 84; O2SAT 99
[2020-07-04 23:35] LABS: Bacteria,Urine 1+ /lpf; Mucus,Urine 1+ /lpf
--- NOTE | 2020-07-05 00:12 | HMH.EDNVD ---
ED Disposition Clinical Impression: Abdominal pain Qualifiers: Abdominal location: right lower quadrant Qualified Code(s): R10.31 - Right lower quadrant pain Disposition: Home, Self-Care Condition on Discharge: Good Instructions: DI for Acute Abdomen Additional Instructions: call pcp in am Referrals: Reid Sharma MD [Primary Care Provider] - - Critical Care Critical Care Time: No Attestation: On 07/04/20, the high probability of a clinically significant, sudden or life threatening deterioration of the following system(s) required my full and direct attention, intervention and personal management. The time I documented below is in addition to time spent performing reported procedures but includes the following listed in this critical care notation. Medical Decision Making - Medical Records Medical records reviewed: Yes: I reviewed the patient's medical records. - Eddi Inquiry Pt receiving controlled substance: No Vital Signs: 07/04/20 22:24 07/04/20 23:22 Temperature 98.4 F Temperature Source Oral Pulse Rate [Right Brachial] 94 H 84 Respiratory Rate 18 Blood Pressure [Right Arm] 151/68 H 138/86 Blood Pressure Mean [Right Arm] 95 103 Blood Pressure Source [Right Arm] Automatic Cuff Automatic Cuff Blood Pressure Position [Right Arm] Sitting Sitting 02 Sat by Pulse Oximetry 99 99 Oxygen Delivery Method Room Air Room Air - Lab Data Lab results reviewed: Yes: I reviewed the patient's lab results. Lab Results 07/04/20 22:30: Urine Color Yellow, Urine Appearance Clear, Urine pH 6.0, Ur Specific [place] 1.020, Urine Protein Negative, Urine Glucose (UA) Negative, Urine Ketones Negative, Urine Blood Negative, Urine Nitrate Negative, Urine Bilirubin Negative, Urine Urobilinogen 1.0, Ur Leukocyte Esterase Negative, Urine WBC 3-5, Ur Squamous Epith Cells 5-10, Urine Bacteria 1+, Urine Mucus 1+ 07/04/20 22:30: WBC 8.5, RBC 4.10 L, Hgb 13.0, Hct 40.0, MCV 97.4, MCH 31.7 H, MCHC 32.5, RDW 13.8, Plt Count 144, MPV 10.0, Neut % (Auto) 59.7, Lymph % (Auto) 27.6, [place] % (Auto) 4.8, Eos % (Auto) 7.3, Baso % (Auto) 0.6, Neut # (Auto) 5.1, Lymph # (Auto) 2.4, [place] # (Auto) 0.4, Eos # (Auto) 0.6 H, Baso # (Auto) 0.1 07/04/20 22:30: Sodium 140, Potassium 4.1, Chloride 106, Carbon Dioxide 28, Anion Gap 10.1, BUN 16, Creatinine 0.90, Estimated Creat Clear 83, Estimated GFR 65, Est GFR ( Amer) 79, Glucose 129 H, Calcium 9.5, Total Bilirubin 0.2, AST 23, ALT 21, Alkaline Phosphatase 128 H, Total Protein 7.4, Albumin 4.3, Globulin 3.1, Albumin/Globulin Ratio 1.4, Amylase 94, Lipase 150 Result diagrams: 07/04/20 22:30 07/04/20 22:30 Orders (Tests/Meds): ED MEDICATIONS Discontinued Medications Generic Name Dose Route Start Last Admin Trade Name Freq PRN Reason Stop Dose Admin Ioversol 75 ml 07/04/20 22:57 07/04/20 22:59 Ioversol-350 (74%) 100ml Vial IV 07/04/20 22:58 75 ml ONCE ONE Administration Protocol Morphine Sulfate 2 mg 07/04/20 23:23 07/04/20 23:27 Morphine 2mg/Ml Syringe IV 07/04/20 23:24 2 mg ONCE ONE Administration Ondansetron HCl 4 mg 07/04/20 23:23 07/04/20 23:27 Ondansetron 4mg/2ml Vial IV 07/04/20 23:24 4 mg ONCE ONE Administration Sodium Chloride 10 ml 07/04/20 22:57 07/04/20 22:58 Sodium Chloride 0.9% 10ml Syr (Rad Only) IV 07/04/20 22:58 10 ml ONCE ONE Administration ORDERS Category Date Time Status CT abdomen pelvis w con Stat Cat Scan 07/04/20 22:33 Taken - CT Data CT Scan: Abdomen, Pelvis Time Received: 00:[address] Reviewed: Yes: I have viewed the radiologist's interpretation Preliminary Findings: Normal/NAD Nausea/Vomiting/Diarrhea HPI - General Chief complaint: Abdominal Pain Stated complaint: Pain Lower R Side Time Seen by Provider: 07/04/20 23:00 Mode of Arrival: Ambulatory Source of Information: Patient, Medical Record Limitations: No Limitations Description of Symptoms (Recalled from ER Triage Doc.
[2020-07-05 00:50] VITALS: BP 127/71; PULSE 81; RESP 18; TEMP 36.9; O2SAT 96
== END 2020-07-05 01:14 | disposition home or self-care (01) ==
PROVIDERS: Emergency Provider Emergency Medicine; PCP Emergency Medicine
DX: R10.31 Right lower quadrant pain (principal); J44.9 Chronic obstructive pulmonary disease, unspecified; E11.9 Type 2 diabetes mellitus without complications; F41.8 Other specified anxiety disorders; K21.9 Gastro-esophageal reflux disease without esophagitis; E78.5 Hyperlipidemia, unspecified; I10 Essential (primary) hypertension; E03.9 Hypothyroidism, unspecified; M79.7 Fibromyalgia; F17.210 Nicotine dependence, cigarettes, uncomplicated; Z79.899 Other long term (current) drug therapy
CPT/HCPCS: 74177; 80053; 81001; 82150; 83690; 85025; 96374; 96375; 99283; J2405; Q9967

== ENCOUNTER → 2020-07-07 14:42 | Outpatient (CLI) | payer MEDICAID, SELFPAY ==
--- NOTE | 2020-07-07 14:42 | US_ITS ---
PROCEDURE: US TRANSVAGINAL CLINICAL INDICATION: COMPARISON: US TRANVAG US transvaginal from 07/15/2018 FINDINGS: There has been a prior hysterectomy. Left ovary has also been removed. Vaginal cuff has an unremarkable appearance. The right ovary measures 4.4 x 2 cm with no dominant cyst or mass evident. No cul-de-sac fluid apparent. IMPRESSION: Prior hysterectomy and left oophorectomy otherwise negative Dictated by: Grey Felder MD 07/08/2020 11:26 Grey Felder MD in [place] 07/08/2020 11:26
== END ==
PROVIDERS: PCP Emergency Medicine; Visit Provider Emergency Medicine
DX: R10.2 Pelvic and perineal pain (principal)
CPT/HCPCS: 76830

== ENCOUNTER → 2020-07-28 08:42 | Outpatient (CLI) | payer MEDICAID, SELFPAY ==
--- NOTE | 2020-07-28 08:42 | MM_ITS ---
PROCEDURE: MM DIG SCREENING MAMM BI W/CAD Digital Breast Tomosynthesis Included CLINICAL INDICATION: screening There is a history of breast cancer in the patient's great grandmother. There has been previous bilateral breast reduction surgery. COMPARISON: MG DXBI MM Dig mamm BI DX w/CAD from 03/07/2018 MG DXRT MM Dig mamm DX unilat RT CAD from 09/08/2018 MG MM DIG SCREENING MAMM BI W/CAD from 07/16/2019 TECHNIQUE: Standard CC and MLO images and 3D Tomosynthesis was obtained. R2 CAD reviewed. FINDINGS: Mild to moderate scattered fibroglandular densities are seen throughout both breasts. There couple of benign-appearing microcalcifications in each breast. There is a stable small benign-appearing nodular density central portion right breast. There is no suspicious lesion and no suspicious microcalcifications. IMPRESSION: Mild to moderate diffuse breast density with no suspicious lesions seen BI-RAD Category: 2 Benign Finding(s) FOLLOW-UP: 1YR 1 Year Follow-up (A letter has been sent to the patient regarding results of the study.) Dictated by: Dr. Lemuel Bettencourt MD 08/02/2020 08:40 Dr. Lemuel Bettencourt MD in [place] 08/02/2020 08:40
== END ==
PROVIDERS: PCP Emergency Medicine; Visit Provider Emergency Medicine
DX: Z12.31 Encounter for screening mammogram for malignant neoplasm of breast (principal)
CPT/HCPCS: 77063; 77067

== ENCOUNTER → 2020-08-09 08:50 | Outpatient (CLI) | payer MEDICAID, SELFPAY ==
[2020-08-09 13:02] LABS: Coronavirus 19 IgG Antibody Negative (Negative); Coronavirus 19 IgM Antibody Negative (Negative)
== END ==
PROVIDERS: Visit Provider Surgery
DX: Z01.818 Encounter for other preprocedural examination (principal); Z12.11 Encounter for screening for malignant neoplasm of colon
CPT/HCPCS: 36415; 86328

== ENCOUNTER 2020-08-11 09:20 | Day surgery (SDC) | payer MEDICAID, SELFPAY ==
[2020-08-09 10:52] VITALS: BMI 31.2
[2020-08-11] VITALS (9 sets, daily range): BP systolic 90–109; BP diastolic 47–68; PULSE 52–66; RESP 18; TEMP 36.3–36.8; O2SAT 94–100
[2020-08-11 10:02] LABS: POC Glucose,Bedside 117 (70-110)
--- NOTE | 2020-08-11 10:57 | P.PN_ITS ---
[facility] Anesthesia Checklist - Patient Identification Patient Identification: Arm Band, Verbal (Name & ) - Structural Data Admitted From: Home Planned Operative Procedure/s: colon Consent for Planned Operative Procedure(s) Verified: Yes Verified Documents: History and Physical - NPO Status Verified Time NPO: 00:00 - Additional verifications Patient : No Anesthesia Reactions: No Hx Blood Transfusions: No Blood Transfusion Reaction: No Cephalosporin Allergy: No Previous Colonoscopy: Yes - Cardiovascular Assessment Heart Sounds: S1 & S2 Pulse Strength: Baseline Pulse Rhythm: Regular Peripheral Edema: No - Airway Assessment C-Spine Mobility Assessed: Yes TMJ Mobility Assessed: Yes Dentition: Edentulous - Neurological Assessment Level of Consciousness: Awake, Alert, Appropriate Hx Seizures: No Numbness or tingling in extremities: No - Anesthesia Plan Anesthesia Risk discussed: Yes Anesthesia Plan: Verified ASA Class: III Anesthesia Type: MAC [facility] History I have reviewed the patient's past medical history: Yes Medical History: Reports:: Anxiety, Asthma, Chronic Obstructive Pulmonary Disease (COPD), Depression, Diabetes Mellitus Type 2, Gastroesophageal Reflux Disease(GERD), Hyperlipidemia, Hypertension Denies:: Cancer, Diabetes Mellitus Type 1, Internal Pacemaker, MRSA, Seizures *Have you ever received a pneumonia vaccine?: Yes *Have you received a flu vaccine this season?: Yes Other Medical History: Reports: Anemia, Arthritis, Fibromyalgia, Hypothyroidism, Other. Denies: Blood Transfusion Reaction Anesthesia experience/problems:: none Laterality Cases: Left: Lumpectomy Other Surgeries: Yes: Cholecystectomy, Colonoscopy, , Diagnostic Lap, Hysterectomy-Total, Hysterectomy-Partial, Sinus Surgery, Tubal Ligation, Other. No: Pacemaker Amputation: No Fractures: No - *Social History Last grade of school completed: GED Smoking Status: Current every day smoker Tobacco Type: cigarettes # Packs/Day (cigarettes): 1 #Yrs smoked (if former smoker): 36 Alcohol Intake: never Alcohol Intake Frequency:: other Substance Use Type: denies use *Occupational Status:: employed Housing: house Household Members: significant other *Travel in the last 8 weeks: None - Psychiatric History Pschychiatric History:: Reports:: Anxiety, Depression Family Hx:: Diabetes, Heart Attack, Hyperlipidemia, Hypertension
--- NOTE | 2020-08-11 12:05 | HMH.SCOPE ---
- Procedure: Date: 08/11/20 Patient Date of :: 1965 Procedure Performed:: Colonoscopy with polypectomy Indications:: History of colon polyps Performing Provider:: Da Bermeo MD Referring Provider:: . Sedation:: Monitored anesthesia care Procedure:: After informed consent was obtained the patient was taken to the endoscopy suite. Sedation ensued after the patient was transferred to the left lateral decubitus position. Pulse, blood pressure, and oxygen saturation were monitored throughout the procedure. Digital rectal exam revealed no significant abnormality. The colonoscope was placed in position. The entire colon was evaluated. The colonoscope was carefully removed and the patient was transferred to recovery in stable condition. Please see findings and specimens below for detail. Findings:: Bowel preparation poor Hemorrhoidal cushions with no active bleeding or thrombosis Multiple large complex polyps (see specimens) Specimens:: Large lobulated periappendiceal polyp (snare) Lobulated right colon polyp (snare) Lobulated distal right colon polyp (snare) Large complex lobulated polyp at 30 cm (snare) Sessile lobulated 9 mm polyp at 20 cm (snare and tattoo) Recommendations:: Timing of repeat colonoscopy is pending pathology but will likely be between 3-6 months secondary to poor bowel preparation and size/nature/number of colon polyps. She will require extended bowel preparation. Complications:: No immediate with the exception of poor bowel preparation Estimated blood obtained (mL): 1
--- NOTE | 2020-08-11 14:02 | PC.NURSE ---
PT DENIES ABDOMINAL PAIN OR NAUSEA. HAS BEEN RESTING QUIETLY WITHOUT ANY C/O. DISCHARGE INSTRUCTIONS REVIEWED WITH PT AND AND COPIES PROVIDED. VERBALIZED UNDERSTANDING TO ALL INSTRUCTIONS. AMBULATED OUT WITH AT SIDE.
== END 2020-08-11 14:00 | disposition home or self-care (01) ==
LOC: OUTP 09:21
PROVIDERS: PCP Emergency Medicine; Visit Provider Surgery
PROC: 0DJD8ZZ Inspection of Lower Intestinal Tract, Via Natural or Artificial Opening Endoscopic (ICD-10-PCS; CPT 45385; principal; 2020-08-11 10:30)
DX: Z12.11 Encounter for screening for malignant neoplasm of colon (principal); K63.5 Polyp of colon; K64.0 First degree hemorrhoids; J44.9 Chronic obstructive pulmonary disease, unspecified; E11.9 Type 2 diabetes mellitus without complications; K21.9 Gastro-esophageal reflux disease without esophagitis; E78.5 Hyperlipidemia, unspecified; I10 Essential (primary) hypertension; F41.9 Anxiety disorder, unspecified; F32.9 Major depressive disorder, single episode, unspecified; Z72.0 Tobacco use; Z88.1 Allergy status to other antibiotic agents
CPT/HCPCS: 45385; 45381; 82962

== ENCOUNTER 2020-10-10 22:04 | Emergency (ER) | payer MEDICAID, SELFPAY ==
[2020-10-10 22:05] VITALS: BP 110/66; PULSE 70; RESP 14; TEMP 36.7; O2SAT 99; BMI 29.2
--- NOTE | 2020-10-10 22:19 | XR_ITS ---
PROCEDURE: XR CHEST 2V CLINICAL HISTORY: SOA COMPARISON: CR XR CHEST 2V from 12/07/2019 CR XR CHEST 2V from 12/12/2019 CR XR CHEST PORTABLE from 01/07/[address] CHEST WO CON from 10/10/2020 FINDINGS: The cardiomediastinal silhouette and pulmonary vascularity are within normal limits. There is minimal blunting of the right CP angle not significantly changed. Lungs are otherwise clear. No acute bony abnormalities. IMPRESSION: No change no acute finding Dictated by: Grey Felder MD 10/11/2020 05:10 Grey Felder MD in [place] 10/11/2020 05:10
--- NOTE | 2020-10-10 22:19 | CT_ITS ---
PROCEDURE: CT ABDOMEN PELVIS WO CON CLINICAL INDICATION: flank pain Right flank pain, right upper quadrant pain COMPARISON: CT CT ABDOMEN PELVIS W CON from 07/04/2020 TECHNIQUE: Axial images obtained with sagittal and coronal reformats. All CT scans at the facility use one or more dose reduction, viz: automated exposure control, ma/kV adjustment per patient size (including targeted exams where dose is matched to indication, i.e. head), or iterative reconstruction technique. FINDINGS: Prior cholecystectomy. Nodular enlargement is involving both adrenal glands consistent with adenomas not significantly changed. The pancreas the spleen and liver have an unremarkable appearance. There are small left renal cyst. No renal calculi or hydronephrosis. No intestinal obstruction or free air. Unremarkable appendix. Prior hysterectomy. There is a small fat containing superior ventral abdominal wall hernia to the right of midline with mild stranding of the herniated fat series 3, image 43. No acute bony findings. There is a small partially calcified rounded area in the left lower quadrant which may be due to fat necrosis. IMPRESSION: Small fat containing hernia in the right para central region of the upper abdomen with mild stranding of the herniated fat. Other nonacute findings as described above. Dictated by: Grey Felder MD 10/11/2020 05:43 Grey Felder MD in [facility] 10/11/2020 05:43
[2020-10-10 22:27] LABS: Microscopic, Urine URINE MICROSCOPIC (MICROSCOPIC)
--- NOTE | 2020-10-10 22:27 | CT_ITS ---
PROCEDURE: CT CHEST WO CON CLINICAL INDICATION: soa Right-sided chest pain, COPD, stabbing right-sided pain with shortness of breath COMPARISON: CT CHESTWO CT chest wo con from 01/16/[address] CHEST WO CON from 02/05/2020 TECHNIQUE: Axial images obtained with sagittal and coronal reformats. All CT scans at the facility use one or more dose reduction, viz: automated exposure control, ma/kV adjustment per patient size (including targeted exams where dose is matched to indication, i.e. head), or iterative reconstruction technique. FINDINGS: HEART AND MEDIASTINAL STRUCTURES: No evidence of aortic aneurysm. Calcified nodes are present in the mediastinum. LUNGS AND PLEURAL SPACES: Small opacity is present in the right upper lobe along the major fissure measuring 5 mm not significantly change may be due to an area of scarring. Image 28 series 3. From a lungs scarring noted in the right lower lobe posteriorly. 7 x 3 mm fissural nodule located along the major fissure superiorly unchanged. Scattered calcified granulomas. No lobar consolidation or collapse. No effusions. BONY STRUCTURES: Degenerative changes thoracic spine UPPER ABDOMEN: Nodularity of both adrenal glands consistent with adenomas. ADDITIONAL FINDINGS: No other significant abnormalities. IMPRESSION: As above, no change with no acute finding. Dictated by: Grey Felder MD 10/11/2020 05:29 Grey Felder MD in [place] 10/11/2020 05:29
[2020-10-10 22:29] LABS: Appearance,Urine CLEAR (Clear); Blood, Urine Negative (Negative); Color,Urine ORANGE (Yellow); Glucose,Urine (UA) 1+ (Negative); Ketones,Urine 1+ (Negative); Leukocyte Esterase,Urine 2+ (Negative); Nitrate,Urine POSITIVE (Negative); Protein,Urine 2+ (Negative); Urobilinogen,Urine >=8.0 EU/dl (0.2)
[2020-10-10 22:30] LABS: Basophils # 0.1 K/mm3 (0-0.2); Basophils % 0.7 % (0.1-2.0); Bilirubin,Urine Negative (Negative); Eosinophils # 0.8 K/mm3 (0.0-0.4); Eosinophils % 6.2 % (0.1-12.0); Hematocrit 42.9 % (37.0-47.0); Hemoglobin 14.6 g/dL (12.2-16.2); Lymphocytes # 2.7 K/mm3 (0.7-4.5); Lymphocytes % 21.8 % (10-50); Mean Corpuscular HGB Conc 34.2 g/dL (31.8-35.4); Mean Corpuscular Hemoglobin 32.6 pg (27.0-31.2); Mean Corpuscular Volume 95.4 fl (81-99); Mean Platelet Volume 11.3 fl (7.4-10.4); Monocytes # 0.5 K/mm3 (0.1-1.0); Monocytes % 3.9 % (1.7-9.3); Neutrophils # 8.5 K/mm3 (1.8-7.8); Neutrophils % 67.4 % (37.0-80.0); Platelet Count 182 K/mm3 (142-424); Red Blood Count 4.49 M/mm3 (4.20-5.40); Red Cell Distribution Width 14.2 % (11.5-17.5); White Blood Count 12.6 K/mm3 (4.8-10.8)
[2020-10-10 22:38] LABS: Alanine Aminotransferase 49 U/L (12-78); Albumin Level 4.5 g/dl (3.5-5.0); Albumin/Globulin Ratio 1.3 (1.1-1.8); Alkaline Phosphatase 151 U/L (38-126); Amylase 111 U/L (30-110); Anion Gap 11.9 mEq/L (5-15); Aspartate Amino Transferase 45 U/L (14-36); Bilirubin,Total 0.3 mg/dl (0.2-1.3); Blood Urea Nitrogen 33 mg/dl (7-17); Calcium 9.8 mg/dl (8.4-10.2); Carbon Dioxide 27 mmol/L (22.0-30.0); Chloride 102 mmol/L (98-107); Creatinine Clearance Estimated 47 mL/min (50-200); Estimated Glomerular Filt Rate 36 ml/min (>60); GFR (African American) 44 ML/MIN (>60); Globulin 3.5 g/dL (1.3-3.2); Glucose 107 mg/dl (74-100); Lipase 123 U/L (23-300); Potassium 3.9 mmoL/L (3.5-5.1); Sodium 137 mmol/L (136-145)
[2020-10-10 22:39] LABS: Amorphous Sediment,Urine Trace /lpf; Bacteria,Urine 2+ /lpf; Mucus,Urine 1+ /lpf; Squamous Epithelial Cell,Urine Occasional #/hpf (0-5)
[2020-10-10 22:40] LABS: Ethyl Alcohol < 10 mg/dl (0-10)
[2020-10-10 22:44] LABS: C-Reactive Protein 8.8 mg/L (0-4)
[2020-10-10 22:57] LABS: Procalcitonin 0.114 ng/mL (0.0-2.0)
--- NOTE | 2020-10-10 22:57 | HMH.EDGENADL ---
ED Disposition Clinical Impression: Tobacco abuse, Renal insufficiency UTI (urinary tract infection) Qualifiers: Urinary tract infection type: acute cystitis Hematuria presence: without hematuria Qualified Code(s): N30.00 - Acute cystitis without hematuria Disposition: Home, Self-Care Condition on Discharge: Good Instructions: DI for Acute Pain -- Adult Additional Instructions: fluids and keep appt with pcp and call about urine culture Prescriptions: levoFLOXacin [Levaquin 500mg tab] 500 mg PO DAILY #7 tab Transmission Status: Pending to [facility] Referrals: Reid Sharma MD [Primary Care Provider] - - Critical Care Critical Care Time: No Attestation: On 10/10/20, the high probability of a clinically significant, sudden or life threatening deterioration of the following system(s) required my full and direct attention, intervention and personal management. The time I documented below is in addition to time spent performing reported procedures but includes the following listed in this critical care notation. Medical Decision Making - Medical Records Medical records reviewed: Yes: I reviewed the patient's medical records. - Eddi Inquiry Pt receiving controlled substance: No Vital Signs: 10/10/20 22:05 Temperature 98.0 F Temperature Source Oral Pulse Rate [Right] 70 Respiratory Rate 14 Blood Pressure [Right Arm] 110/66 Blood Pressure Mean [Right Arm] 80 02 Sat by Pulse Oximetry 99 Oxygen Delivery Method Room Air - Lab Data Lab results reviewed: Yes: I reviewed the patient's lab results. Lab Results 10/10/20 22:20: WBC 12.6 H, RBC 4.49, Hgb 14.6, Hct 42.9, MCV 95.4, MCH 32.6 H, MCHC 34.2, RDW 14.2, Plt Count 182, MPV 11.3 H, Neut % (Auto) 67.4, Lymph % (Auto) 21.8, [place] % (Auto) 3.9, Eos % (Auto) 6.2, Baso % (Auto) 0.7, Neut # (Auto) 8.5 H, Lymph # (Auto) 2.7, [place] # (Auto) 0.5, Eos # (Auto) 0.8 H, Baso # (Auto) 0.1, ESR 26 10/10/20 22:20: Sodium 137, Potassium 3.9, Chloride 102, Carbon Dioxide 27, Anion Gap 11.9, BUN 33 H, Creatinine 1.50 H, Estimated Creat Clear 47, Estimated GFR 36 L, Est GFR ( Amer) 44 L, Glucose 107 H, Calcium 9.8, Total Bilirubin 0.3, AST 45 H, ALT 49, Alkaline Phosphatase 151 H, C-Reactive Protein 8.8 H, Total Protein 8.0, Albumin 4.5, Globulin 3.5 H, Albumin/Globulin Ratio 1.3, Amylase 111 H, Lipase 123, Procalcitonin 0.114 10/10/20 22:20: Urine Color [place], Urine Appearance Clear, Urine pH 5.0, Ur Specific [place] 1.020, Urine Protein 2+, Urine Glucose (UA) 1+, Urine Ketones 1+, Urine Blood Negative, Urine Nitrate Positive, Urine Bilirubin Negative, Urine Urobilinogen >=8.0, Ur Leukocyte Esterase 2+ A, Urine WBC 3-5, Ur Squamous Epith Cells Occasional, Amorphous Sediment Trace, Urine Bacteria 2+, Urine Mucus 1+ 10/10/20 22:20: Plasma/Serum Alcohol < 10 10/10/20 22:20: SARS-CoV-2 IgG Ab (Rapid) Negative, SARS-CoV-2 IgM Ab (Rapid) Negative 10/10/20 22:20: D-Dimer 0.76 H Result diagrams: 10/10/20 22:20 10/10/20 22:20 Orders (Tests/Meds): ED MEDICATIONS Generic Name Dose Route Start Last Admin Trade Name Freq PRN Reason Stop Dose Admin Sodium Chloride 1,000 mls @ 999 mls/hr 10/10/20 22:30 10/10/20 22:27 Sod Chlor 0.9% 1000ml Bag IV 10/10/20 23:30 999 mls/hr .Q1H1M [place] Administration Ceftriaxone Sodium 1 gm/ 50 mls @ 100 mls/hr 10/10/20 23:15 10/10/20 23:25 Sodium Chloride IV 10/24/20 23:14 100 mls/hr Q24H [place] Administration Protocol Sodium Chloride 8 ml 10/10/20 22:21 Sodium Chloride 0.9% 10ml Vial IV 11/09/20 22:20 NEEDED PRN dilute pepcid Discontinued Medications Generic Name Dose Route Start Last Admin Trade Name Freq PRN Reason Stop Dose Admin Famotidine 20 mg 10/10/20 22:21 10/10/20 22:27 Famotidine 20mg/2ml Vial IV 10/10/20 22:22 20 mg ONCE ONE Administration Metoclopramide HCl 10 mg 10/10/20 22:21 10/10/20 22:27 Metoclopramide Hcl 10mg/2ml Vial IVP 10/10/20 2
[2020-10-10 23:13] LABS: D-Dimer 0.76 ug/mL (0.0-0.5)
[2020-10-10 23:15] LABS: Erythrocyte Sedimentation Rate 26 mm/hr (0-30)
[2020-10-10 23:17] LABS: Coronavirus 19 IgG Antibody Negative (Negative); Coronavirus 19 IgM Antibody Negative (Negative)
[2020-10-10 23:58] VITALS: BP 120/75; PULSE 70; RESP 16; TEMP 36.8; O2SAT 99
== END 2020-10-11 00:01 | disposition home or self-care (01) ==
PROVIDERS: Emergency Provider Emergency Medicine; PCP Emergency Medicine
DX: N30.00 Acute cystitis without hematuria (principal); N28.9 Disorder of kidney and ureter, unspecified; K21.9 Gastro-esophageal reflux disease without esophagitis; E11.9 Type 2 diabetes mellitus without complications; F41.8 Other specified anxiety disorders; E78.5 Hyperlipidemia, unspecified; I10 Essential (primary) hypertension; Z01.84 Encounter for antibody response examination; Z88.2 Allergy status to sulfonamides; Z79.899 Other long term (current) drug therapy
CPT/HCPCS: 71046; 71250; 74176; 80053; 81001; 82150; 83690; 84145; 85025; 85378; 85651; 86140; 86328; 87086; 99283

== ENCOUNTER → 2020-10-17 12:14 | Outpatient (CLI) | payer MEDICAID, SELFPAY ==
[2020-10-17 12:24] LABS: Chloride 105 mmol/L (98-107); Sodium 139 mmol/L (136-145)
[2020-10-17 12:25] LABS: Potassium 3.8 mmoL/L (3.5-5.1)
[2020-10-17 12:27] LABS: Blood Urea Nitrogen 24 mg/dl (7-17); Estimated Glomerular Filt Rate 88 ml/min (>60); GFR (African American) 106 ML/MIN (>60)
[2020-10-17 12:28] LABS: Anion Gap 12.8 mEq/L (5-15); Calcium 9.5 mg/dl (8.4-10.2); Carbon Dioxide 25 mmol/L (22.0-30.0); Glucose 169 mg/dl (74-100)
== END ==
PROVIDERS: Visit Provider Emergency Medicine
DX: N28.9 Disorder of kidney and ureter, unspecified (principal)
CPT/HCPCS: 80048

== ENCOUNTER 2020-10-30 22:28 | Observation (INO) | payer MEDICAID, SELFPAY ==
[2020-10-30 22:29] VITALS: BP 151/83; PULSE 91; RESP 20; TEMP 36.7; O2SAT 98; BMI 29.2
--- NOTE | 2020-10-30 22:38 | XR_ITS ---
PROCEDURE: XR CHEST 2V CLINICAL HISTORY: chest pain Smoker COMPARISON: CR XR CHEST 2V from 12/12/2019 CR XR CHEST PORTABLE from 01/07/[address] CHEST WO CON from 10/10/2020 CR XR CHEST 2V from 10/10/2020 FINDINGS: The cardiomediastinal silhouette and pulmonary vascularity are within normal limits. There is chronic blunting of the right CP angle. Old granulomatous disease. No lobar consolidation or collapse. No acute bony abnormalities. IMPRESSION: No acute findings. Dictated by: Grey Felder MD 10/31/2020 05:25 Grey Felder MD in [place] 10/31/2020 05:27
--- NOTE | 2020-10-30 22:38 | ECG_ITS ---
APPROVED REPORT Exam: Resting ECG HR:89 bpm ECG Measurements Heart Rate 89 AXES AR 120 P 64 QRSd 84 QRS 72 QT 356 T 88 QTc 433 Conclusion Normal sinus rhythm Nonspecific ST abnormality Abnormal ECG Electronically signed by : Sarkis Monk, 10/31/2020 06:53:33
[2020-10-30 22:50] LABS: Alanine Aminotransferase 50 U/L (12-78); Albumin Level 4.8 g/dl (3.5-5.0); Alkaline Phosphatase 137 U/L (38-126); Anion Gap 11.1 mEq/L (5-15); Aspartate Amino Transferase 53 U/L (14-36); Basophils % 0.5 % (0.1-2.0); Bilirubin,Direct 0.3 mg/dl (0.0-0.4); Bilirubin,Indirect 0.1 mg/dL (0.0-0.9); Bilirubin,Total 0.4 mg/dl (0.2-1.3); Bilirubin,Unconjugated 0.2 mg/dL (0.0-1.1); Blood Urea Nitrogen 21 mg/dl (7-17); Calcium 9.9 mg/dl (8.4-10.2); Carbon Dioxide 28 mmol/L (22.0-30.0); Chloride 102 mmol/L (98-107); Creatinine Clearance Estimated 78 mL/min (50-200); Eosinophils # 0.5 K/mm3 (0.0-0.4); Eosinophils % 5.8 % (0.1-12.0); Estimated Glomerular Filt Rate 65 ml/min (>60); GFR (African American) 79 ML/MIN (>60); Glucose 118 mg/dl (74-100); Hematocrit 44.2 % (37.0-47.0); Hemoglobin 14.8 g/dL (12.2-16.2); Lymphocytes # 2.5 K/mm3 (0.7-4.5); Lymphocytes % 29.4 % (10-50); Mean Corpuscular HGB Conc 33.4 g/dL (31.8-35.4); Mean Corpuscular Hemoglobin 32.2 pg (27.0-31.2); Mean Corpuscular Volume 96.3 fl (81-99); Mean Platelet Volume 9.9 fl (7.4-10.4); Monocytes # 0.4 K/mm3 (0.1-1.0); Monocytes % 4.5 % (1.7-9.3); Neutrophils # 5.1 K/mm3 (1.8-7.8); Neutrophils % 59.7 % (37.0-80.0); Platelet Count 167 K/mm3 (142-424); Potassium 4.1 mmoL/L (3.5-5.1); Red Blood Count 4.59 M/mm3 (4.20-5.40); Red Cell Distribution Width 14.3 % (11.5-17.5); Sodium 137 mmol/L (136-145); Total Protein,Serum 8.5 g/dl (6.3-8.2); White Blood Count 8.6 K/mm3 (4.8-10.8)
[2020-10-30 22:56] LABS: C-Reactive Protein 7.1 mg/L (0-4)
[2020-10-30 23:00] VITALS: BP 155/96; PULSE 100; RESP 17; O2SAT 97
[2020-10-30 23:09] LABS: Procalcitonin 0.061 ng/mL (0.0-2.0)
[2020-10-30 23:15] LABS: Erythrocyte Sedimentation Rate 23 mm/hr (0-30)
[2020-10-30 23:16] LABS: Troponin I < 0.01 ng/ml (0.00-0.034)
[2020-10-30 23:30] VITALS: BP 196/92; PULSE 94; RESP 17; O2SAT 99
--- NOTE | 2020-10-30 23:40 | HMH.EDCP ---
ED Disposition Clinical Impression: Overweight (BMI 25.0-29.9), Tobacco use, Hypothyroidism (acquired) Chest pain Qualifiers: Chest pain type: precordial pain Qualified Code(s): R07.2 - Precordial pain COPD (chronic obstructive pulmonary disease) Qualifiers: COPD type: unspecified COPD Qualified Code(s): J44.9 - Chronic obstructive pulmonary disease, unspecified Hypertension Qualifiers: Hypertension type: essential hypertension Qualified Code(s): I10 - Essential (primary) hypertension Disposition: Admitted as Observation Condition on Discharge: Fair Referrals: Reid Sharma MD [Primary Care Provider] - - Critical Care Critical Care Time: No Attestation: On 10/30/20, the high probability of a clinically significant, sudden or life threatening deterioration of the following system(s) required my full and direct attention, intervention and personal management. The time I documented below is in addition to time spent performing reported procedures but includes the following listed in this critical care notation. Medical Decision Making - Medical Records Medical records reviewed: Yes: I reviewed the patient's medical records. - Eddi Inquiry Pt receiving controlled substance: No Vital Signs: 10/30/20 22:29 10/30/20 23:00 10/30/20 23:30 Temperature 98.0 F Temperature Source Oral Pulse Rate [Right] 91 H 100 H 94 H Respiratory Rate 20 17 17 Blood Pressure [Right Arm] 151/83 H 155/96 H 196/92 H Blood Pressure Mean [Right Arm] 105 115 126 Blood Pressure Source [Right Arm] Automatic Cuff Automatic Cuff Automatic Cuff Blood Pressure Position [Right Arm] Supine Supine Supine 02 Sat by Pulse Oximetry 98 97 99 Oxygen Delivery Method Room Air Room Air Room Air - Lab Data Lab results reviewed: Yes: I reviewed the patient's lab results. Lab Results 10/30/20 22:30: WBC 8.6, RBC 4.59, Hgb 14.8, Hct 44.2, MCV 96.3, MCH 32.2 H, MCHC 33.4, RDW 14.3, Plt Count 167, MPV 9.9, Neut % (Auto) 59.7, Lymph % (Auto) 29.4, [place] % (Auto) 4.5, Eos % (Auto) 5.8, Baso % (Auto) 0.5, Neut # (Auto) 5.1, Lymph # (Auto) 2.5, [place] # (Auto) 0.4, Eos # (Auto) 0.5 H, Baso # (Auto) 0.0, ESR 23 10/30/20 22:30: Sodium 137, Potassium 4.1, Chloride 102, Carbon Dioxide 28, Anion Gap 11.1, BUN 21 H, Creatinine 0.90, Estimated Creat Clear 78, Estimated GFR 65, Est GFR ( Amer) 79, Glucose 118 H, Calcium 9.9, Total Bilirubin 0.4, Direct Bilirubin 0.3, Conjugated Bilirubin 0.0, Indirect Bilirubin 0.1, Unconjugated Bilirubin 0.2, AST 53 H, ALT 50, Alkaline Phosphatase 137 H, Troponin I < 0.01, C-Reactive Protein 7.1 H, Total Protein 8.5 H, Albumin 4.8, Procalcitonin 0.061 10/30/20 23:35: Urine Color Yellow, Urine Appearance Clear, Urine pH 6.5, Ur Specific [place] 1.010, Urine Protein Negative, Urine Glucose (UA) Negative, Urine Ketones Negative, Urine Blood Negative, Urine Nitrate Negative, Urine Bilirubin Negative, Urine Urobilinogen 0.2, Ur Leukocyte Esterase Negative, Ur Squamous Epith Cells 10-20 Result diagrams: 10/30/20 22:30 10/30/20 22:30 Orders (Tests/Meds): ED MEDICATIONS Generic Name Dose Route Start Last Admin Trade Name Freq PRN Reason Stop Dose Admin Sodium Chloride 1,000 mls @ 999 mls/hr 10/30/20 22:45 10/30/20 22:44 Sod Chlor 0.9% 1000ml Bag IV 10/30/20 23:45 999 mls/hr .Q1H1M [place] Administration Discontinued Medications Generic Name Dose Route Start Last Admin Trade Name Freq PRN Reason Stop Dose Admin Aspirin 324 mg 10/30/20 22:38 10/30/20 22:44 Aspirin 81mg Chewable Tablet PO 10/30/20 22:39 324 mg ONCE ONE Administration Morphine Sulfate 4 mg 10/30/20 22:38 10/30/20 22:44 Morphine 4mg/Ml Syringe IV 10/30/20 22:39 4 mg ONCE ONE Administration Ondansetron HCl 4 mg 10/30/20 22:38 10/30/20 22:44 Ondansetron 4mg/2ml Vial IV 10/30/20 22:39 4 mg ONCE ONE Administration ORDERS Category Date Time Status XR chest 2V Stat Exams 10/30/20 22:38 Taken Covid-19 Na
[2020-10-30 23:42] LABS: Appearance,Urine CLEAR (Clear); Bilirubin,Urine Negative (Negative); Blood, Urine Negative (Negative); Color,Urine YELLOW (Yellow); Glucose,Urine (UA) Negative (Negative); Ketones,Urine Negative (Negative); Leukocyte Esterase,Urine Negative (Negative); Microscopic, Urine URINE MICROSCOPIC (MICROSCOPIC); Nitrate,Urine Negative (Negative); PH,Urine 6.5 (5.0-8.5); Protein,Urine Negative (Negative); Urobilinogen,Urine 0.2 EU/dl (0.2)
[2020-10-31] VITALS (7 sets, daily range): BP systolic 138–162; BP diastolic 61–86; PULSE 66–96; RESP 16–18; TEMP 36.3–36.9; O2SAT 97–98; BMI 30.2
--- NOTE | 2020-10-31 | CA_ITS ---
APPROVED REPORT Exam: Pharmacologic Technologist: Olivia Kaminski, Ht: 5 ft 0 in Wt: 154 lbs BSA: 1.67 m2 HR: 67 bpm BP: 153/82 mmHg Rhythm: NSR Indications: Chest pain Stress Test Details Test: LEXISCAN HR Resting HR: 73 bpm Max Heart Rate (APMHR): 167 bpm Max HR Achieved: 112 bpm Target HR (85% APMHR): 141 bpm % of APMHR: 67 Recovery HR: 83 bpm BP Resting BP: 153/82 mmHg Max BP: 153/82 mmHg Recovery BP: 143.0/86.0 mmHg ECG Clinical Reason for Termination: Completed protocol Exercise duration: 04:00 min Highest Stage Achieved: Exercise capacity: 1.0 METs Angina Score: None Stress ECG Conclusion Denies chest pain - shortness of breath noted during infusion - resolved in recovery. No ectopy. Less than 1.5mm depression. Images to follow. Test Summary REST . . . . . . . Resting REST 05:37 . . 73 . 153/ 82 . . Stage 1 . . . . . . . Cardiolite injected Stage 1 01:00 . . 95 . . . . Stage 2 01:00 . . 111 . 120/ 75 . . Stage 3 01:00 . . 101 . 130/ 76 . . Stage 4 01:00 . . 96 . 130/ 68 . Stop exercise at 04:00 RECOVERY 01:00 . . 80 . . . . RECOVERY 02:00 . . 82 . 136/ 84 . . RECOVERY 03:00 . . 84 . 143/ 86 . . RECOVERY 04:00 . . 84 . 143/ 86 . . RECOVERY 04:02 . . 84 . 143/ 86 . . Electronically signed by : Regino Latif, 10/31/2020 21:51:39
[2020-10-31 00:05] LABS: Magnesium 1.8 mg/dl (1.6-2.3)
--- NOTE | 2020-10-31 00:09 | PC.NURSE ---
Pt has been admitted, waiting for COVID results
[2020-10-31 00:49] LABS: Chol/HDL Ratio 4.7 (1-3.5); Cholesterol 262 mg/dl (140-200); HDL Cholesterol 56 mg/dl (40-60); Triglycerides 205 mg/dl (30-150); VLDL Cholesterol 41 mg/dL (0-40)
[2020-10-31 01:00] LABS: Direct LDL Cholesterol 122.49 mg/dL (100-129)
[2020-10-31 01:22] LABS: Thyroid Stimulating Hormone 6.63 uIU/mL (0.465-4.68)
--- NOTE | 2020-10-31 01:41 | PC.NURSE ---
PT ARRIVED TO THE FLOOR VIA W/C FROM EDWITH STAFF AT 0140
[2020-10-31 02:27] LABS: Troponin I < 0.01 ng/ml (0.00-0.034)
[2020-10-31 07:03] LABS: Basophils # 0.1 K/mm3 (0-0.2); Basophils % 0.7 % (0.1-2.0); Eosinophils # 0.4 K/mm3 (0.0-0.4); Eosinophils % 5.9 % (0.1-12.0); Hematocrit 40.2 % (37.0-47.0); Lymphocytes # 2.2 K/mm3 (0.7-4.5); Lymphocytes % 32.2 % (10-50); Mean Corpuscular HGB Conc 31.8 g/dL (31.8-35.4); Mean Corpuscular Volume 97.5 fl (81-99); Monocytes # 0.4 K/mm3 (0.1-1.0); Monocytes % 5.9 % (1.7-9.3); Neutrophils # 3.7 K/mm3 (1.8-7.8); Neutrophils % 55.3 % (37.0-80.0); Platelet Count 132 K/mm3 (142-424); Red Blood Count 4.12 M/mm3 (4.20-5.40); White Blood Count 6.7 K/mm3 (4.8-10.8)
[2020-10-31 07:06] LABS: Hemoglobin 12.8 g/dL (12.2-16.2)
--- NOTE | 2020-10-31 07:47 | HMH.PHAVTE ---
[facility] VTE Monitoring - Patient Demographics Admission date: 10/30/20 Report Date: 10/31/20 Time: 07:47 Allergies/Adverse Reactions: Patient Allergies eletriptan Allergy (Severe, Verified 10/28/20 09:21) THROAT SWELLING metronidazole Allergy (Severe, Verified 10/28/20 09:21) LIVER FAILURE sumatriptan Allergy (Severe, Verified 10/28/20 09:21) THROAT SWELLING Sulfa (Sulfonamide Antibiotics) Allergy (Intermediate, Verified 10/28/20 09:21) NAUSEA/VOMITING erythromycin base Allergy (Mild, Verified 10/28/20 09:21) NAUSEA/VOMITING sulfacetamide Adverse Reaction (Mild, Verified 10/28/20 09:21) NAUSEA/VOMITING Tetracyclines Adverse Reaction (Mild, Verified 10/28/20 09:21) NAUSEA/VOMITING ketorolac [From Toradol] Adverse Reaction (Verified 10/28/20 09:21) Height: 1.52 m Weight: 70.2 kg Patient Problems: Current Active Problems Chest pain (Acute) Overweight (BMI 25.0-29.9) (Acute) Tobacco use (Acute) Hypothyroidism (acquired) (Acute) Hypertension (Acute) COPD (chronic obstructive pulmonary disease) (Acute) - VTE Risk Labs: VTE Related Lab Results Hgb 12.8 g/dL (12.2-16.2) D 10/31/20 06:10 Hct 40.2 % (37.0-47.0) 10/31/20 06:10 Plt Count 132 K/mm3 (142-424) L 10/31/20 06:10 BUN 21 mg/dl (7-17) H 10/30/20 22:30 Creatinine 0.90 mg/dl (0.52-1.04) 10/30/20 22:30 Estimated Creat Clear 78 mL/min (50-200) 10/30/20 22:30 VTE Score: 4 VTE Risk Level: Low Risk - Prophylaxis VTE Prophylaxis Ordered?: Yes Types of VTE Prophylaxis: TEDS Knee High Location of Applied Device: Bilateral Lower Extremeties
[2020-10-31 07:51] LABS: Chloride 108 mmol/L (98-107); Sodium 139 mmol/L (136-145)
[2020-10-31 07:52] LABS: Potassium 4.7 mmoL/L (3.5-5.1)
[2020-10-31 07:55] LABS: Anion Gap 5.7 mEq/L (5-15); Blood Urea Nitrogen 17 mg/dl (7-17); Calcium 9.5 mg/dl (8.4-10.2); Carbon Dioxide 30 mmol/L (22.0-30.0); Creatinine Clearance Estimated 90 mL/min (50-200); Estimated Glomerular Filt Rate 75 ml/min (>60); GFR (African American) 91 ML/MIN (>60); Glucose 103 mg/dl (74-100)
--- NOTE | 2020-10-31 07:56 | HMH.PHAINT ---
MEDICATION RECONCILIATION COMPLETED ON PATIENT USING EXTERNAL FILL HISTORY FROM PHARMACY AND LIST FROM MD OFFICE. -JB LUD
--- NOTE | 2020-10-31 08:00 | CA_ITS ---
APPROVED REPORT EXAM: Comprehensive 2D, Doppler, and color-flow Echocardiogram Information Clerk: Ashlyn Espinosa, RT(R) Ht: 5 ft 0 in Wt: 150lbs BSA: 1.65 BP: 151/80 mmHg Indications: MUSCLE SPASMS, ATYPICAL CP, HTN, SMOKER,ABN TSH Echo Enhancing Agent Comments: TDE; patient in constant motion with spasms. Poor acouistics throughout exam 2D Dimensions IVSd 0.71 cm F: 0.6-1.0 LVEF (Visual) 68.40 % PWd 0.84 cm F: 0.6 - 1.0 LVDd 4.22 cm F: 3.9 - 5.3 LVDs 2.62 cm F: 2.2 - 3.5 LVOT 1.74 cm (M/F) 1.5-2.5 M-Mode Dimensions LA Diam 2.70 cm (1.9-4.0) Ao Diam 2.79 cm (2.0-3.7) EPSs 0.31 cm LV Diastology E Decel Time 220.00 (160-240 msec) E/A Ratio 1.06 MED E' 8.40 (< 7 cm/sec) MED A' 9.20 cm/s E'/MED E' Ratio 11.56 (>14) LAT E' 11.20 (<10 cm/sec) LAT A' 12.10 cm/s E/LAT E' Ratio 8.67 (>14) Aortic Valve AO Peak GR. 5.20 mmHg Mitral Valve MV A Velocity 91.00 (40-130 cm/s) E/A Ratio 1.06 MV Decel. Time 220.00 (160-240 ms) Pulmonary Valve PV Peak Velocity 67.00 (50-150 cm/s) Tricuspid Valve TR P. Velocity 250.00 cm/s RAP Estimate 10.00 mmHg RVSP 35.00 mmHg Left Ventricle Left atrium is normal size, left ventricle is normal size, there is no concentric left ventricular hypertrophy, visually estimated ejection fraction 55% with no regional wall motion abnormality, diastolic parameters are within normal range. Right Ventricle Right atrium and right ventricle are normal size and contractility. Aortic Valve Aortic valve is minimally thickened and fibrosed, there is no aortic stenosis or aortic insufficiency. Mitral Valve Mitral valve is grossly normal, there is trace mitral regurgitation. Tricuspid Valve Tricuspid valve is grossly normal, there is trace tricuspid regurgitation. Tricuspid regurgitation jet velocity is inadequate for calculation of the right ventricular systolic pressure. Pulmonic Valve Pulmonic valve is poorly visualized. Great Vessels Aortic root is normal size. Pericardium No significant pericardial effusion noted. Conclusion 1. Normal left ventricular size, preserved left ventricular systolic function, visually estimated ejection fraction 55% with no regional wall motion abnormality, diastolic parameters are within normal range. 2. Trace mitral and tricuspid regurgitation. 3. No significant pericardial effusion noted. Electronically signed by : Regino Latif, 10/31/2020 20:57:23
--- NOTE | 2020-10-31 08:12 | NM_ITS ---
APPROVED REPORT Exam: Nuclear Stress Test Indication: HTN, TOB USE, FM HX, C.P., SOB Patient Location: Inpatient Stress Tech: Susan Bran [place] Tech:Dayna Edwards, ARRT, RT (R)(N) Ht: 5 ft 0 in Wt: 150 lbs HR: 67 bpm BP: 153/82 mmHg BSA: 1.65 m2 History: HTN, TOB USE, FM HX, C.P., SOB Procedure: Patient received a 0.4 mg of intravenous Lexiscan, resting heart rate 67 bpm, resting blood pressure 153/82 mmHg, with Lexiscan maximum heart rate achived was 111 bpm which is % of the maximum predicted heart rate and blood pressure was 120/75 mmHg. With Lexiscan, patient denied any complaint of chest pain. Cardiac Stress and Resting SPECT Images: Cardiac Stress and Resting SPECT images were obtained using technetium 99m Myoview 31.3 mCi stress and 10.65 mCi at rest. EF is 67% with no wall motion abnormalities No fixed or reversible defects Conclusion: No evidence of ischemia or infarction with normal EF Electronically signed by : Grey Felder MD 10/31/2020 16:02:47
[2020-10-31 08:16] LABS: Troponin I < 0.01 ng/ml (0.00-0.034)
--- NOTE | 2020-10-31 11:09 | HMH.CNCARD ---
History of Present Illness Consult date: 10/31/20 Requesting physician: Reid Sharma Consult reason: chest pain Chief complaint: chest pain Additional Medical History:: 1. Atypical chest pain (10/31/20) a. Negative troponins 2. Abdominal pain (10/31/20) 3. Chronic obstructive pulmonary disease 4. Essential hypertension 5. Hyperlipidemia 6. Type 2 diabetes a. Uncontrolled 7. Hypothyroidism 8. Tobacco usage a. Smokes 1 ppd for over 20+ years 9. Srinivasan Disease a. Diagnosed 3 years ago. History of present illness: 55-year-old female admitted to [facility] with atypical chest pain. Patient stated for the past 4 days she has been having a crampy feeling of the mid chest area radiating to the lower abdominal area. Patient denies nausea or vomiting. Patient states this pain has been coming more often. Pain will usually resolve with rest after a few seconds. Shortness of breath does accompany this discomfort. Shortness of breath will resolve when chest discomfort resolves. Patient complains of palpitations. Denies dizziness. No swelling of the lower extremities noted. Patient is very vague about her symptoms. Patient has no known history of coronary artery disease. 2018 patient underwent stress test which revealed negative for ischemia. Last echocardiogram 2018 revealed EF of 55% with mild MR and TR. Patient has never undergone a heart catheterization. Patient does have history of diabetes type 2 which is uncontrolled. History of hypothyroidism. Patient does smoke at least 1 pack/day and has for over 20 years. Pt was diagnosed with Srinivasan Disease 3 years ago. Initial work-up was performed. Cardiac serial enzymes negative, creatinine 0.90, BUN 21 and TSH elevated at 6.63. LDL was noted at 122. Chest x-ray was performed which revealed no acute findings. Initial EKG revealed normal sinus rhythm, non-Park ST abnormality with a heart rate of 86 bpm Discussed plan of care with Dr. Maynard. Recommend no cardiac intervention at this time. I do believe PCP is ordering a stress Myoview for today. Echocardiogram was ordered. Results are pending at this time. Continue to monitor patient status. Pending on the stress Myoview may recommend further cardiac testing or medication changes. Thank you for letting cardiology participate in the care of this patient. [facility] History I have reviewed the patient's past medical history: Yes Medical History: Reports:: Anxiety, Asthma, Chronic Obstructive Pulmonary Disease (COPD), Depression, Diabetes Mellitus Type 2, Gastroesophageal Reflux Disease(GERD), Hyperlipidemia, Hypertension Denies:: Cancer, Diabetes Mellitus Type 1, Internal Pacemaker, MRSA, Seizures *Have you ever received a pneumonia vaccine?: Yes *Have you received a flu vaccine this season?: Yes Other Medical History: Reports: Anemia, Arthritis, Fibromyalgia, Hypothyroidism, Other. Denies: Blood Transfusion Reaction Laterality Cases: Left: Lumpectomy Other Surgeries: Yes: Cholecystectomy, Colonoscopy, , Diagnostic Lap, Hysterectomy-Total, Hysterectomy-Partial, Sinus Surgery, Tubal Ligation, Other. No: Pacemaker Amputation: No Fractures: No - *Social History Smoking Status: Current every day smoker Tobacco Type: cigarettes # Packs/Day (cigarettes): 1 #Yrs smoked (if former smoker): 36 Alcohol Intake: never Alcohol Intake Frequency:: other Substance Use Type: denies use *Occupational Status:: disabled Housing: house Household Members: significant other *Travel in the last 8 weeks: None - Psychiatric History Pschychiatric History:: Reports:: Anxiety, Depression Family Hx:: Coronary Artery Disease Meds Home Medications Medication Instructions Recorded Confirmed Type Ergocalciferol (Vitamin D2) 50,000 unit PO WEEKLY 07/04/20 10/31/20 History [Drisdol] Metformin HCl [Glucophage Xr] 500 mg PO DAILY 07/04/20 10/31/20 History Citalopram Hydrobromide [Celexa] 40 mg PO DAILY
--- NOTE | 2020-10-31 16:35 | HMH.HPDC ---
General - General Admission date:: 10/31/20 Discharge date: 10/31/20 *Admission Date: 10/30/20 *Chief complaint: chest pain *History of present illness: 55-year-old female admitted to [facility] with chest pain. Patient presented to ed with c/o for the past 3 days she has been having a crampy feeling of the mid chest area radiating to the lower abdominal area. Patient denies nausea or vomiting. Patient states this pain has been coming more often with soa. Shortness of breath will resolve when chest discomfort resolves. Patient complains of palpitations. Denies dizziness,nausea and vomiting. Patient does have history of diabetes type 2 which is uncontrolled, hypothyroidism and smokes at least 1 pack/day and has for over 20 years. Pt was diagnosed with Srinivasan Disease 3 years ago. pt admitted for cardiology consult [facility] History I have reviewed the patient's past medical history: Yes Medical History: Reports:: Anxiety, Asthma, Chronic Obstructive Pulmonary Disease (COPD), Depression, Diabetes Mellitus Type 2, Gastroesophageal Reflux Disease(GERD), Hyperlipidemia, Hypertension Denies:: Cancer, Diabetes Mellitus Type 1, Internal Pacemaker, MRSA, Seizures *Have you ever received a pneumonia vaccine?: Yes *Have you received a flu vaccine this season?: Yes Other Medical History: Reports: Anemia, Arthritis, Fibromyalgia, Hypothyroidism, Other. Denies: Blood Transfusion Reaction Laterality Cases: Left: Lumpectomy Other Surgeries: Yes: Cholecystectomy, Colonoscopy, , Diagnostic Lap, Hysterectomy-Total, Hysterectomy-Partial, Sinus Surgery, Tubal Ligation, Other. No: Pacemaker Amputation: No Fractures: No - *Social History Smoking Status: Current every day smoker Tobacco Type: cigarettes # Packs/Day (cigarettes): 1 #Yrs smoked (if former smoker): 36 Alcohol Intake: never Alcohol Intake Frequency:: other Substance Use Type: denies use *Occupational Status:: disabled Housing: house Household Members: significant other *Travel in the last 8 weeks: None - Psychiatric History Pschychiatric History:: Reports:: Anxiety, Depression Family Hx:: Coronary Artery Disease Review of Systems - Review of Systems Review of systems:: pertinent systems reviewed and negative unless documented below - Constitutional Denies body ache(s), Denies lack of energy - Eyes Denies dry eyes - ENT Denies neck pain, Denies sore throat - *Cardiovascular Reports chest pain, Reports shortness of breath, Reports shortness of breath with activity, Denies leg swelling - *Respiratory Reports shortness of breath with activity - *Gastrointestinal Denies nausea, Denies vomiting - *Genitourinary Denies urinary incontinence - *Musculoskeletal Reports body aches, Denies joint pain - Integumentary/Breasts Denies rash - *Neurologic Denies headache(s), Denies seizure-like activity - Psychiatric Denies anxiety - Endocrine Denies excessive sweating - Hematologic/Lymphatic Denies easy bruising - Allergic/Immunologic Denies throat swelling Exam Vital signs and Labs for Last 24 Hours: Temp Pulse Resp BP Pulse Ox 97.4 F L 71 16 143/86 H 97 10/31/20 15:36 10/31/20 15:36 10/31/20 15:36 10/31/20 15:36 10/31/20 15:36 Laboratory Results - last 24 hr 10/30/20 22:30: WBC 8.6, RBC 4.59, Hgb 14.8, Hct 44.2, MCV 96.3, MCH 32.2 H, MCHC 33.4, RDW 14.3, Plt Count 167, MPV 9.9, Neut % (Auto) 59.7, Lymph % (Auto) 29.4, [place] % (Auto) 4.5, Eos % (Auto) 5.8, Baso % (Auto) 0.5, Neut # (Auto) 5.1, Lymph # (Auto) 2.5, [place] # (Auto) 0.4, Eos # (Auto) 0.5 H, Baso # (Auto) 0.0, ESR 23 10/30/20 22:30: Sodium 137, Potassium 4.1, Chloride 102, Carbon Dioxide 28, Anion Gap 11.1, BUN 21 H, Creatinine 0.90, Estimated Creat Clear 78, Estimated GFR 65, Est GFR ( Amer) 79, Glucose 118 H, Calcium 9.9, Total Bilirubin 0.4, Direct Bilirubin 0.3, Conjugated Bilirubin 0.0, Indirect Bilirubin 0.1, Unconjugated Bilirubin 0.2, AST 53 H, ALT 50, Alkaline Phosphatas
== END 2020-10-31 16:30 | disposition home or self-care (01) ==
LOC: ER 23:01 → 2ND 10-31 00:14
PROVIDERS: Admitting Provider Emergency Medicine; Emergency Provider Emergency Medicine; PCP Emergency Medicine; Visit Provider Emergency Medicine
DX: R07.9 Chest pain, unspecified (principal); J44.9 Chronic obstructive pulmonary disease, unspecified; I10 Essential (primary) hypertension; E03.9 Hypothyroidism, unspecified; Z72.0 Tobacco use; Z88.8 Allergy status to other drugs, medicaments and biological substances; Z79.51 Long term (current) use of inhaled steroids; Z88.2 Allergy status to sulfonamides; D69.41 Evans syndrome
CPT/HCPCS: 36415; 71046; 78452; 80048; 80061; 80076; 81001; 83735; 84145; 84436; 84443; 84484; 85025; 85651; 86140; 93005; 93017; 93306; 96365; 96375; 99284; A9502; G0378; J2405; J2785; U0003

== ENCOUNTER → 2020-12-12 14:53 | Outpatient (CLI) | payer MEDICAID, SELFPAY ==
[2020-12-12 17:12] LABS: Amphetamine/Metha Screen,Urine Negative ng/ml (<1000)
[2020-12-12 17:13] LABS: Barbiturates Screen,Urine Negative ng/ml (<200)
[2020-12-12 17:14] LABS: Benzodiazepines Screen,Urine Negative ng/ml (<200)
[2020-12-12 17:15] LABS: Cannabinoid Screen,Urine Negative ng/ml (<50)
[2020-12-12 17:16] LABS: Cocaine Screen,Urine Negative ng/ml (<300); Methadone Screen,Urine Negative ng/ml (<300)
[2020-12-12 17:17] LABS: Opiate Screen,Urine Positive ng/ml (<300)
[2020-12-12 17:18] LABS: Phencyclidine Screen,Urine Negative ng/ml (<25)
== END ==
PROVIDERS: Visit Provider Emergency Medicine
DX: Z79.899 Other long term (current) drug therapy (principal)
CPT/HCPCS: 80305

== ENCOUNTER → 2020-12-23 12:03 | Outpatient (CLI) | payer MEDICAID, SELFPAY ==
[2020-12-23 13:02] LABS: Basophils # 0.1 K/mm3 (0-0.2); Basophils % 0.7 % (0.1-2.0); Eosinophils # 0.4 K/mm3 (0.0-0.4); Eosinophils % 5.7 % (0.1-12.0); Hematocrit 43.3 % (37.0-47.0); Hemoglobin 13.5 g/dL (12.2-16.2); Lymphocytes # 1.7 K/mm3 (0.7-4.5); Lymphocytes % 26.1 % (10-50); Mean Corpuscular HGB Conc 31.2 g/dL (31.8-35.4); Mean Corpuscular Hemoglobin 31.3 pg (27.0-31.2); Mean Corpuscular Volume 100.5 fl (81-99); Mean Platelet Volume 9.7 fl (7.4-10.4); Monocytes # 0.3 K/mm3 (0.1-1.0); Monocytes % 4.8 % (1.7-9.3); Neutrophils # 4.1 K/mm3 (1.8-7.8); Neutrophils % 62.5 % (37.0-80.0); Platelet Count 159 K/mm3 (142-424); Red Blood Count 4.31 M/mm3 (4.20-5.40); Red Cell Distribution Width 14.1 % (11.5-17.5); White Blood Count 6.6 K/mm3 (4.8-10.8)
[2020-12-23 13:24] LABS: Chloride 107 mmol/L (98-107); Sodium 140 mmol/L (136-145)
[2020-12-23 13:25] LABS: Potassium 4.4 mmoL/L (3.5-5.1)
[2020-12-23 13:27] LABS: Alanine Aminotransferase 26 U/L (12-78); Albumin Level 4.3 g/dl (3.5-5.0); Albumin/Globulin Ratio 1.5 (1.1-1.8); Alkaline Phosphatase 113 U/L (38-126); Anion Gap 6.4 mEq/L (5-15); Aspartate Amino Transferase 20 U/L (14-36); Bilirubin,Total 0.4 mg/dl (0.2-1.3); Blood Urea Nitrogen 13 mg/dl (7-17); Carbon Dioxide 31 mmol/L (22.0-30.0); Estimated Glomerular Filt Rate 88 ml/min (>60); GFR (African American) 106 ML/MIN (>60); Globulin 2.8 g/dL (1.3-3.2); Total Protein,Serum 7.1 g/dl (6.3-8.2)
[2020-12-23 13:28] LABS: Calcium 9.9 mg/dl (8.4-10.2); Glucose 126 mg/dl (74-100)
[2020-12-23 13:33] LABS: C-Reactive Protein 5.5 mg/L (0-4)
[2020-12-23 13:44] LABS: Free T4 (Free Thyroxine) 0.86 ng/dl (0.78-2.19)
[2020-12-23 13:58] LABS: Thyroid Stimulating Hormone 0.68 uIU/mL (0.465-4.68)
[2020-12-23 14:20] LABS: Erythrocyte Sedimentation Rate 19 mm/hr (0-30)
[2020-12-24 19:16] LABS: RA Latex Turbid. <10.0 IU/mL (0.0-13.9)
[2020-12-26 13:03] LABS: Anti-Cyclic Citrullinated Pept 9 units (0-19)
[2020-12-26 15:21] LABS: Anti-Centromere B Antibodies <0.2 AI (0.0-0.9); Anti-Jo-1 <0.2 AI (0.0-0.9); Anti-Smith Antibody <0.2 AI (0.0-0.9); Antichromatin Antibodies <0.2 AI (0.0-0.9); Antiscleroderma-70 Antibodies <0.2 AI (0.0-0.9); RNP Antibodies 0.2 AI (0.0-0.9); Sjogren's Anti-SS-A <0.2 AI (0.0-0.9); Sjogren's Anti-SS-B <0.2 AI (0.0-0.9)
[2020-12-26 18:32] LABS: Anti-DNA (DS) Ab Qn <1 IU/mL (0-9)
[2020-12-27 01:20] LABS: PTT-LA 44.8 sec (0.0-51.9); dRVVT 38.5 sec (0.0-47.0)
[2020-12-27 13:15] LABS: Lupus Reflex Interpretation Comment: (.)
== END ==
PROVIDERS: Visit Provider Emergency Medicine
DX: M19.90 Unspecified osteoarthritis, unspecified site (principal); M54.5 Low back pain
CPT/HCPCS: 36415; 80053; 84439; 84443; 85025; 85613; 85651; 86140; 86200; 86225; 86235; 86431

== ENCOUNTER → 2021-02-06 13:43 | Outpatient (CLI) | payer MEDICAID, SELFPAY ==
[2021-02-06 17:07] LABS: Amphetamine/Metha Screen,Urine Negative ng/ml (<1000)
[2021-02-06 17:08] LABS: Barbiturates Screen,Urine Negative ng/ml (<200); Benzodiazepines Screen,Urine Negative ng/ml (<200)
[2021-02-06 17:11] LABS: Cannabinoid Screen,Urine Negative ng/ml (<50); Cocaine Screen,Urine Negative ng/ml (<300)
[2021-02-06 17:12] LABS: Methadone Screen,Urine Negative ng/ml (<300)
[2021-02-06 17:13] LABS: Opiate Screen,Urine Positive ng/ml (<300); Phencyclidine Screen,Urine Negative ng/ml (<25)
== END ==
PROVIDERS: Visit Provider Emergency Medicine
DX: Z79.899 Other long term (current) drug therapy (principal)
CPT/HCPCS: 80305

== ENCOUNTER → 2021-04-03 14:17 | Outpatient (CLI) | payer MEDICAID, SELFPAY ==
[2021-04-03 14:50] LABS: Amphetamine/Metha Screen,Urine Positive ng/ml (<1000); Barbiturates Screen,Urine Negative ng/ml (<200)
[2021-04-03 14:51] LABS: Benzodiazepines Screen,Urine Negative ng/ml (<200); Cannabinoid Screen,Urine Negative ng/ml (<50)
[2021-04-03 14:52] LABS: Cocaine Screen,Urine Negative ng/ml (<300)
[2021-04-03 14:53] LABS: Methadone Screen,Urine Negative ng/ml (<300); Opiate Screen,Urine Positive ng/ml (<300)
[2021-04-03 14:54] LABS: Phencyclidine Screen,Urine Negative ng/ml (<25)
== END ==
PROVIDERS: Visit Provider Emergency Medicine
DX: M54.5 Low back pain (principal); Z79.899 Other long term (current) drug therapy
CPT/HCPCS: 80305

== ENCOUNTER 2021-04-16 09:46 | Emergency (ER) | payer MEDICAID, SELFPAY ==
[2021-04-16 09:48] VITALS: BP 129/76; PULSE 78; RESP 18; TEMP 36.6; O2SAT 98; BMI 29.9
[2021-04-16 09:53] VITALS: BP 129/76; PULSE 78; O2SAT 97
[2021-04-16 10:00] VITALS: BP 113/80; PULSE 76; O2SAT 95
--- NOTE | 2021-04-16 10:30 | HMH.EDDIZZ ---
ED Disposition Clinical Impression: Hypomagnesemia, Lightheadedness Disposition: Home, Self-Care Condition on Discharge: Good Instructions: DI for Dehydration -- Adult Referrals: Reid Sharma MD [Primary Care Provider] - - Critical Care Critical Care Time: No Attestation: On 04/16/21, the high probability of a clinically significant, sudden or life threatening deterioration of the following system(s) required my full and direct attention, intervention and personal management. The time I documented below is in addition to time spent performing reported procedures but includes the following listed in this critical care notation. Medical Decision Making - Medical Records Medical records reviewed: Yes: I reviewed the patient's medical records. - Eddi Inquiry Pt receiving controlled substance: No Vital Signs: 04/16/21 09:48 04/16/21 09:53 04/16/21 10:00 Temperature 97.9 F Temperature Source Oral Pulse Rate 78 76 Pulse Rate [Right] 78 Respiratory Rate 18 Blood Pressure 129/76 113/80 Blood Pressure [Right Arm] 129/76 Blood Pressure Mean 89 91 Blood Pressure Mean [Right Arm] 93 02 Sat by Pulse Oximetry 98 97 95 Oxygen Delivery Method Room Air 04/16/21 10:45 04/16/21 11:00 Temperature Temperature Source Pulse Rate 69 72 Pulse Rate [Right] Respiratory Rate Blood Pressure Blood Pressure [Right Arm] Blood Pressure Mean Blood Pressure Mean [Right Arm] 02 Sat by Pulse Oximetry 96 96 Oxygen Delivery Method - Lab Data Lab Results 04/16/21 10:28: Urine Color Yellow, Urine Appearance Clear, Urine pH 5.5, Ur Specific [place] 1.025, Urine Protein Negative, Urine Glucose (UA) Negative, Urine Ketones Negative, Urine Blood Negative, Urine Nitrate Negative, Urine Bilirubin Negative, Urine Urobilinogen 1.0, Ur Leukocyte Esterase Negative, Urine RBC None, Urine WBC None, Ur Squamous Epith Cells 3-5, Urine Bacteria Trace, Urine Mucus Trace 04/16/21 10:28: WBC 7.5, RBC 4.58, Hgb 14.3, Hct 42.9, MCV 93.7, MCH 31.3 H, MCHC 33.4, RDW 14.1, Plt Count 154, MPV 10.4, Neut % (Auto) 65.5, Lymph % (Auto) 23.1, [place] % (Auto) 5.5, Eos % (Auto) 4.7, Baso % (Auto) 1.1, Neut # (Auto) 4.9, Lymph # (Auto) 1.7, [place] # (Auto) 0.4, Eos # (Auto) 0.4, Baso # (Auto) 0.1 04/16/21 10:28: Sodium 138, Potassium 4.4, Chloride 101, Carbon Dioxide 30, Anion Gap 11.4, BUN 26 H, Creatinine 0.90, Estimated Creat Clear 79, Estimated GFR 65, Est GFR ( Amer) 79, Glucose 96, Calcium 9.8, Magnesium 1.5 L, Total Bilirubin 0.5, AST 45 H, ALT 41, Alkaline Phosphatase 159 H, Total Protein 8.1, Albumin 4.8, Globulin 3.3 H, Albumin/Globulin Ratio 1.5, Lipase 194 Result diagrams: 04/16/21 10:28 04/16/21 10:28 Orders (Tests/Meds): ED MEDICATIONS Discontinued Medications Generic Name Dose Route Start Last Admin Trade Name Freq PRN Reason Stop Dose Admin Sodium Chloride 1,000 mls @ 999 mls/hr 04/16/21 10:15 04/16/21 10:18 Sod Chlor 0.9% 1000ml Bag IV 04/16/21 11:15 999 mls/hr .Q1H1M [place] Administration Magnesium Oxide 400 mg 04/16/21 11:10 Magnesium Oxide 400mg Tablet PO 04/16/21 11:11 ONCE STA - Reevaluation(s) Time: 11:20 Reevaluation #1: On reevaluation, the patient is feeling much better. Does have some mild decrease magnesium. This was repleted. Patient was given fluids as well. Repeat neurologic exam is normal. Patient to follow-up with PCP. Strict return precautions. Verbalized understanding. Medical Decision Narrative: 55-year-old female presented to the emergency department with some muscle cramping and lightheadedness. Patient has had some excessive exertion lately with poor oral intake. Concern for possible dehydration versus electrolyte abnormality. Work-up initiated. Dizzy HPI - General Chief Complaint: Dizziness Stated Complaint: stomach cramping, dehydrated Time Seen by Provider: 04/16/21 10:00 Mode of Arrival: Ambulatory Limitations: No Joel
[2021-04-16 10:33] LABS: Appearance,Urine CLEAR (Clear); Bilirubin,Urine Negative (Negative); Blood, Urine Negative (Negative); Color,Urine YELLOW (Yellow); Glucose,Urine (UA) Negative (Negative); Ketones,Urine Negative (Negative); Leukocyte Esterase,Urine Negative (Negative); Microscopic, Urine URINE MICROSCOPIC (MICROSCOPIC); Nitrate,Urine Negative (Negative); PH,Urine 5.5 (5.0-8.5); Protein,Urine Negative (Negative); Specific Gravity, Urine 1.025 (1.005-1.030)
[2021-04-16 10:34] LABS: Basophils # 0.1 K/mm3 (0-0.2); Basophils % 1.1 % (0.1-2.0); Eosinophils # 0.4 K/mm3 (0.0-0.4); Eosinophils % 4.7 % (0.1-12.0); Hematocrit 42.9 % (37.0-47.0); Hemoglobin 14.3 g/dL (12.2-16.2); Lymphocytes # 1.7 K/mm3 (0.7-4.5); Lymphocytes % 23.1 % (10-50); Mean Corpuscular HGB Conc 33.4 g/dL (31.8-35.4); Mean Corpuscular Hemoglobin 31.3 pg (27.0-31.2); Mean Corpuscular Volume 93.7 fl (81-99); Mean Platelet Volume 10.4 fl (7.4-10.4); Monocytes # 0.4 K/mm3 (0.1-1.0); Monocytes % 5.5 % (1.7-9.3); Neutrophils # 4.9 K/mm3 (1.8-7.8); Neutrophils % 65.5 % (37.0-80.0); Platelet Count 154 K/mm3 (142-424); Red Blood Count 4.58 M/mm3 (4.20-5.40); Red Cell Distribution Width 14.1 % (11.5-17.5); White Blood Count 7.5 K/mm3 (4.8-10.8)
[2021-04-16 10:38] LABS: Bacteria,Urine Trace /lpf; Mucus,Urine Trace /lpf
[2021-04-16 10:39] LABS: Chloride 101 mmol/L (98-107); Potassium 4.4 mmoL/L (3.5-5.1); Sodium 138 mmol/L (136-145)
[2021-04-16 10:41] LABS: Blood Urea Nitrogen 26 mg/dl (7-17); Creatinine Clearance Estimated 79 mL/min (50-200); Estimated Glomerular Filt Rate 65 ml/min (>60); GFR (African American) 79 ML/MIN (>60)
[2021-04-16 10:42] LABS: Alanine Aminotransferase 41 U/L (12-78); Albumin Level 4.8 g/dl (3.5-5.0); Albumin/Globulin Ratio 1.5 (1.1-1.8); Alkaline Phosphatase 159 U/L (38-126); Anion Gap 11.4 mEq/L (5-15); Aspartate Amino Transferase 45 U/L (14-36); Bilirubin,Total 0.5 mg/dl (0.2-1.3); Calcium 9.8 mg/dl (8.4-10.2); Carbon Dioxide 30 mmol/L (22.0-30.0); Globulin 3.3 g/dL (1.3-3.2); Glucose 96 mg/dl (74-100); Lipase 194 U/L (23-300); Total Protein,Serum 8.1 g/dl (6.3-8.2)
[2021-04-16 10:43] LABS: Magnesium 1.5 mg/dl (1.6-2.3)
[2021-04-16 10:45] VITALS: PULSE 69; O2SAT 96
[2021-04-16 11:00] VITALS: PULSE 72; O2SAT 96
[2021-04-16 11:40] VITALS: BP 105/58; PULSE 69; RESP 16; TEMP 36.5; O2SAT 99
== END 2021-04-16 11:44 | disposition home or self-care (01) ==
PROVIDERS: Emergency Provider Emergency Medicine; PCP Emergency Medicine
DX: E83.42 Hypomagnesemia (principal); R42 Dizziness and giddiness; E86.0 Dehydration; F41.8 Other specified anxiety disorders; E11.9 Type 2 diabetes mellitus without complications; I10 Essential (primary) hypertension; E78.5 Hyperlipidemia, unspecified; M79.7 Fibromyalgia; K21.9 Gastro-esophageal reflux disease without esophagitis; E03.9 Hypothyroidism, unspecified; F17.210 Nicotine dependence, cigarettes, uncomplicated; Z79.899 Other long term (current) drug therapy; Z88.2 Allergy status to sulfonamides
CPT/HCPCS: 80053; 81001; 83690; 83735; 85025; 96365; 99283

== ENCOUNTER → 2021-05-03 13:17 | Outpatient (CLI) | payer MEDICAID, SELFPAY ==
[2021-05-03 14:32] LABS: Adenovirus,PCR Not Detected (NotDetected); Bordetella Pertussis Not Detected (NotDetected); Chlamydophila Pneumoniae, PCR Not Detected (NotDetected); Coronavirus 19, PCR Not Detected (NotDetected); Coronavirus 229E Not Detected (NotDetected); Coronavirus NL63 Not Detected (NotDetected); Coronavirus OC43 Not Detected (NotDetected); Coronovirus HKU1,PCR Not Detected (NotDetected); Human Metapneumovirus Not Detected (NotDetected); Influenza A, PCR Not Detected (NotDetected); Influenza AH1, 2009 Not Detected (NotDetected); Influenza AH1, PCR Not Detected (NotDetected); Influenza AH3,PCR Not Detected (NotDetected); Influenza B, PCR Not Detected (NotDetected); Mycoplasma Pneumoniae, PCR Not Detected (NotDetected); Parainfluenza 1, PCR Not Detected (NotDetected); Parainfluenza 2, PCR Not Detected (NotDetected); Parainfluenza 3, PCR Not Detected (NotDetected); Parainfluenza 4, PCR Not Detected (NotDetected); Respiratory Syncytial Virus Not Detected (NotDetected); Rhinovirus/Enterovirus Not Detected (NotDetected)
== END ==
PROVIDERS: PCP Emergency Medicine; Visit Provider Emergency Medicine
DX: Z20.822 Contact with and (suspected) exposure to COVID-19 (principal)
CPT/HCPCS: 87581; 87633; 87798

== ENCOUNTER → 2021-05-22 15:39 | Outpatient (CLI) | payer MEDICAID, SELFPAY | PROVIDERS: Visit Provider Emergency Medicine | DX: Z20.822 Contact with and (suspected) exposure to COVID-19 (principal) | CPT/HCPCS: U0003 ==

== ENCOUNTER → 2021-06-02 17:53 | Outpatient (CLI) | payer MEDICAID, SELFPAY ==
[2021-06-02 20:58] LABS: Amphetamine/Metha Screen,Urine Negative ng/ml (<1000)
[2021-06-02 20:59] LABS: Barbiturates Screen,Urine Negative ng/ml (<200); Benzodiazepines Screen,Urine Negative ng/ml (<200)
[2021-06-02 21:00] LABS: Cannabinoid Screen,Urine Negative ng/ml (<50)
[2021-06-02 21:01] LABS: Cocaine Screen,Urine Negative ng/ml (<300); Methadone Screen,Urine Negative ng/ml (<300)
[2021-06-02 21:02] LABS: Opiate Screen,Urine Negative ng/ml (<300)
[2021-06-02 21:03] LABS: Phencyclidine Screen,Urine Negative ng/ml (<25)
== END ==
PROVIDERS: Visit Provider Emergency Medicine
DX: Z79.899 Other long term (current) drug therapy (principal)
CPT/HCPCS: 80305

== ENCOUNTER → 2021-06-06 11:11 | Outpatient (CLI) | payer MEDICAID, SELFPAY | PROVIDERS: PCP Emergency Medicine; Visit Provider Nurse Practitioner | DX: Z20.822 Contact with and (suspected) exposure to COVID-19 (principal) | CPT/HCPCS: C9803; U0003; U0005 ==

== ENCOUNTER → 2021-07-28 12:19 | Outpatient (CLI) | payer MEDICAID, SELFPAY | PROVIDERS: PCP Emergency Medicine; Visit Provider Nurse Practitioner | DX: Z20.822 Contact with and (suspected) exposure to COVID-19 (principal) | CPT/HCPCS: C9803; U0003; U0005 ==

== ENCOUNTER → 2021-08-29 14:17 | Outpatient (CLI) | payer MEDICAID, SELFPAY ==
[2021-08-29 17:11] LABS: Amphetamine/Metha Screen,Urine Negative ng/ml (<1000); Barbiturates Screen,Urine Negative ng/ml (<200); Benzodiazepines Screen,Urine Negative ng/ml (<200); Cannabinoid Screen,Urine Negative ng/ml (<50); Cocaine Screen,Urine Negative ng/ml (<300); Methadone Screen,Urine Negative ng/ml (<300); Opiate Screen,Urine Positive ng/ml (<300); Phencyclidine Screen,Urine Negative ng/ml (<25)
== END ==
PROVIDERS: Visit Provider Emergency Medicine
DX: Z79.899 Other long term (current) drug therapy (principal)
CPT/HCPCS: 80305

== ENCOUNTER 2021-09-20 18:15 | Emergency (ER) | payer MEDICAID, SELFPAY ==
--- NOTE | 2021-09-20 18:34 | XR_ITS ---
PROCEDURE INFORMATION: Exam: XR Left Wrist Exam date and time: 09/20/2021 6:34 PM Age: 56 years old Clinical indication: Pain; Wrist; Left TECHNIQUE: Imaging protocol: XR Left wrist. Views: 3 or more views. COMPARISON: CR XR HAND LT MIN 3V 09/20/2021 6:37 PM FINDINGS: Bones/joints: Normal. Soft tissues: Normal. IMPRESSION: No acute findings.
--- NOTE | 2021-09-20 18:34 | XR_ITS ---
PROCEDURE INFORMATION: Exam: XR Left Hand Exam date and time: 09/20/2021 6:34 PM Age: 56 years old Clinical indication: Pain; Hand; Left TECHNIQUE: Imaging protocol: XR Left hand. Views: 3 or more views. COMPARISON: CR Hand L 04/18/2019 1:00 AM FINDINGS: Bones/joints: Normal. Soft tissues: Normal. IMPRESSION: No acute findings.
[2021-09-20 18:40] VITALS: BP 143/69; PULSE 60; RESP 20; TEMP 36.7; O2SAT 97; BMI 29.9
--- NOTE | 2021-09-20 19:35 | HMH.EDUTC ---
[facility] [place] Disposition Clinical Impression: Strain of left wrist Qualifiers: Encounter type: initial encounter Qualified Code(s): S66.912A - Strain of unspecified muscle, fascia and tendon at wrist and hand level, left hand, initial encounter Disposition: Home, Self-Care Condition on Discharge: Good Instructions: DI for Wrist Strain, How To Perform RICE (Rest, Ice, Compress, Elevate) Additional Instructions: *RICE, Rest the extremity, Ice 15-20 minutes 3-4 times daily, Compress- wear the awilda wrap as discussed as much as possible to help reduce swelling and pain, Elevate the extremity when at rest *Wrist splint is for support and help control swelling, use it except in the shower. Be sure that is not to tight but not to loose either *Elevate when resting *Ibuprofen as directed on package every 6-8 hours as needed for pain an inflammation. If need something more can take Tylenol in between doses of Ibuprofen to help Immediately follow up with your family doctor for new or worsening of symptoms, or no noticeable improvement over the next 3-5 day Follow up with your Family Doctor if no improvement or any worsening of symptoms Referrals: Reid Sharma MD [Primary Care Provider] - As needed Time of Disposition: 19:41 Medical Decision Making - Eddi Inquiry Pt receiving controlled substance: No Eddi was queried for this patient: No Vital Signs: 09/20/21 18:40 Temperature 98.1 F Temperature Source Oral Pulse Rate [Right Brachial] 60 Respiratory Rate 20 Blood Pressure [Right Arm] 143/69 H Blood Pressure Mean [Right Arm] 93 Blood Pressure Source [Right Arm] Automatic Cuff Blood Pressure Position [Right Arm] Sitting 02 Sat by Pulse Oximetry 97 Oxygen Delivery Method Room Air - Radiology Data #1 Image(s): Hand Image Reviewed: Yes I have reviewed radiologist's interpretation IMPRESSION: No acute findings. #2 Image(s): Wrist Image Reviewed: Yes I have reviewed radiologist's interpretation IMPRESSION: No acute findings. [facility] [place] HPI - General Stated complaint: Left hand & thumb pain Time Seen by Provider: 09/20/21 19:35 Mode of Arrival: Ambulatory Source of Information: Patient Limitations: No Limitations Description of Symptoms (Recalled from Triage Doc. by RN): PATIENT C/O LEFT WRIST AND THUMB PAIN THAT'S BEEN GOING ON FOR A WHILE. 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 and not sure if she may have done something to hurt it or if she may be having carpal tunnel so she came in to get it checked out - Related Data Home Medications Medication Instructions Recorded Confirmed Citalopram Hydrobromide [Celexa] 40 mg PO DAILY 08/11/20 08/29/21 tiotropium bromide 2.5 2 puff IH DAILY 08/16/20 08/29/21 mcg/actuation mist for inhalation montelukast 10 mg tablet 10 mg PO PM tab 08/25/20 08/29/21 Previous Rx's Medication Instructions Recorded estradiol 1 mg tablet 1 mg PO DAILY #30 tab 08/25/20 mupirocin 2 % topical ointment 1 applic TOPICAL BID #22 g 01/16/21 cholecalciferol (vitamin D3) 25 See Rx Instructions .ROUTE 03/15/21 mcg (1,000 unit) tablet .COMPLEX #30 tablet metoprolol tartrate 50 mg tablet See Rx Instructions .ROUTE 03/15/21 .COMPLEX #180 tab albuterol sulfate 2.5 mg INHALATION Q4-6H PRN #180 ml 06/02/21 albuterol sulfate 90 mcg/actuation 1 puff INHALATION QIDP PRN #8.5 g 06/02/21 aerosol inhaler fluticasone furoate 200 1 ea INHALATION DAILY #60 each 06/02/21 mcg-vilanterol 25 mcg/dose inhalation powder ergocalciferol (vitamin D2) 1,250 See Rx Instructions .ROUTE 07/12/21 mcg (50,000 unit) capsule .COMPLE
[2021-09-20 19:45] VITALS: BP 143/69; PULSE 60; RESP 20; TEMP 36.7; O2SAT 97
== END 2021-09-20 19:50 | disposition home or self-care (01) ==
PROVIDERS: Emergency Provider Nurse Practitioner; PCP Emergency Medicine
DX: S66.912A Strain of unspecified muscle, fascia and tendon at wrist and hand level, left hand, initial encounter (principal); F41.8 Other specified anxiety disorders; J44.9 Chronic obstructive pulmonary disease, unspecified; K21.9 Gastro-esophageal reflux disease without esophagitis; E03.9 Hypothyroidism, unspecified; M79.7 Fibromyalgia; I10 Essential (primary) hypertension; E78.5 Hyperlipidemia, unspecified; E11.9 Type 2 diabetes mellitus without complications; Z79.899 Other long term (current) drug therapy
CPT/HCPCS: 29125; 73110; 73130; 99202; G0463

== ENCOUNTER 2021-09-24 11:24 | Emergency (ER) | payer MEDICAID, SELFPAY ==
[2021-09-24 13:41] VITALS: BP 142/77; PULSE 54; RESP 18; TEMP 36.8; O2SAT 98; BMI 29.9
[2021-09-24 13:47] LABS: UTC Influenza A Antigen Negative (Negative)
[2021-09-24 13:48] LABS: UTC Influenza B Antigen Negative (Negative)
--- NOTE | 2021-09-24 14:13 | HMH.EDUTC ---
[facility] [place] Impression: Viral syndrome Sinusitis Qualifiers: Sinusitis location: unspecified location Chronicity: acute Recurrence: non-recurrent Qualified Code(s): J01.90 - Acute sinusitis, unspecified Pharyngitis Qualifiers: Pharyngitis/tonsillitis etiology: unspecified etiology Qualified Code(s): J02.9 - Acute pharyngitis, unspecified Disposition: Home, Self-Care Condition on Discharge: Good Instructions: DI for Sinusitis, DI for COVID-19 (Suspected or Confirmed ), Preventing the Spread of Coronavirus Discharge Instructions Additional Instructions: Drink plenty of fluids. Take tylenol or ibuprofen for pain or fever. Take the medications as directed. Follow up with your regular doctor. GO TO THE ER FOR ANY WORSENING SYMPTOMS Quarantine until you know the results of your covid-19 test. If it is positive, the health department should call you and give you further instructions about your length of Quarantine and other things. Notify your school or workplace of your results and follow their instructions regarding return to work/school. Prescriptions: Amoxicillin [Amoxicillin 500mg Tab] 500 mg PO TID 10 Days #30 tab Transmission Status: Received by [facility] Benzonatate [Benzonatate 100mg cap] 100 mg PO TIDP PRN #30 cap PRN Reason: Cough Transmission Status: Received by [facility] methylPREDNISolone [Medrol] 4 mg PO DIRECTED 6 Days #21 packet Transmission Status: Received by [facility] Referrals: Reid Sharma MD [Primary Care Provider] - Forms: Work/School Release Time of Disposition: 14:41 Medical Decision Making - Medical Records Medical records reviewed: No: I reviewed the patient's medical records. - Eddi Inquiry Pt receiving controlled substance: No Vital Signs: 09/24/21 13:41 09/24/21 14:54 Temperature 98.3 F 98.1 F Temperature Source Oral Pulse Rate 66 Pulse Rate [Left] 54 L Respiratory Rate 18 16 Blood Pressure 142/77 H Blood Pressure [Right Arm] 142/77 H Blood Pressure Mean [Right Arm] 98 02 Sat by Pulse Oximetry 98 - Lab Data Lab results reviewed: Yes: I reviewed the patient's lab results. Lab Results 09/24/21 13:45: Influenza Type A Ag Negative, Influenza Type B Ag Negative 09/24/21 14:38: Strep Scn Rapid Clinic Negative Orders (Tests/Meds): ORDERS Category Date Time Status Strep Screen Confirmation Stat Micro 09/24/21 14:38 [place] [facility] [place] - General Stated complaint: fever, cough, runny nose, muscle pain Time Seen by Provider: 09/24/21 14:13 Mode of Arrival: Ambulatory Source of Information: Patient Limitations: No Limitations Description of Symptoms (Recalled from Triage Doc. by RN): pt c/o fever, chills, cough, body aches and [place] since yesterday. HEENT Symptoms (Recalled from RN notes): Yes Resp Symptoms (Recalled from RN notes): Yes Skin Symptoms (Recalled from RN notes): No MS Symptoms (Recalled from RN notes): No Functional Status (Recalled from RN notes): wnl - History of Present Illness Provider Complaint: She has been having sinus congestion, sore throat, and sinus pressure for the past 2 days. - Related Data Home Medications Medication Instructions Recorded Confirmed Citalopram Hydrobromide [Celexa] 40 mg PO DAILY 08/11/20 08/29/21 tiotropium bromide 2.5 2 puff IH DAILY 08/16/20 08/29/21 mcg/actuation mist for inhalation montelukast 10 mg tablet 10 mg PO PM tab 08/25/20 08/29/21 Previous Rx's Medication Instructions Recorded estradiol 1 mg tablet 1 mg PO DAILY #30 tab 08/25/20 mupirocin 2 % topical ointment 1 applic TOPICAL BID #22 g 01/16/21 cholecalciferol (vitamin D3) 25 See Rx Instructions .ROUTE 03/15/21 mcg (1,000 unit) tablet .COMPLEX #30 tablet metoprolol tartrate 50 mg tablet See Rx Instructions .ROUTE 03/15/21 .COMPLEX #180 tab albuterol sulfate 2.5 mg INHALATION Q4-6H PRN #180 ml 06/02/21 albuterol sul
[2021-09-24 14:49] LABS: UTC Strep Screen (Rapid) Negative (Negative)
[2021-09-24 14:54] VITALS: BP 142/77; PULSE 66; RESP 16; TEMP 36.7
== END 2021-09-24 14:57 | disposition home or self-care (01) ==
PROVIDERS: Emergency Provider Nurse Practitioner Family; PCP Emergency Medicine
DX: J01.90 Acute sinusitis, unspecified (principal); B34.9 Viral infection, unspecified; J02.9 Acute pharyngitis, unspecified; F41.8 Other specified anxiety disorders
CPT/HCPCS: 87804; 87880; 99203; C9803; G0463; U0003; U0005

== ENCOUNTER → 2021-10-04 15:24 | Outpatient (CLI) | payer MEDICAID, SELFPAY | PROVIDERS: Visit Provider Nurse Practitioner | DX: Z20.822 Contact with and (suspected) exposure to COVID-19 (principal) | CPT/HCPCS: C9803; U0003; U0005 ==

== ENCOUNTER 2021-10-05 18:20 | Emergency (ER) | payer MEDICAID, SELFPAY ==
[2021-10-05 19:30] VITALS: BP 109/70; PULSE 80; RESP 19; TEMP 37; O2SAT 98; BMI 24.7
[2021-10-05 19:47] LABS: UTC Strep Screen (Rapid) Positive (Negative)
--- NOTE | 2021-10-05 19:56 | HMH.EDUTC ---
[place] Disposition Clinical Impression: Strep throat Disposition: Home, Self-Care Condition on Discharge: Good Instructions: DI for Strep Throat, Strep Throat Additional Instructions: *Monitor Temp, Over the counter Motrin or Tylenol as directed/as needed Tylenol every 4 hours and Motrin every 6 hours (as long as your family doctor has told you that you can take it) for fever or pain. and straight to ER if unable to lower temp less than 101.0 after medication given *Warm salt water gargles may help to soothe the throat *Throat Lozenges *Warm fluids like tea with honey may help to soothe the throat *Sleep elevated *Humidifier/Vaporizer *If you did not take Penicillin shot or was unable to, start taking antibiotic immediately and make sure that you take it for the FULL length of time although you should start to feel better in 24-48 hours *change toothbrush and toothpaste 24-48 hours after starting to take antibiotics so you do not reinfect yourself Monitor Temp. Tylenol and/or Ibuprofen as needed. ER if fever is no less than 101 despite alternating Tylenol and Ibuprofen * Encourage fluids, water, Gatorade, powerade, pedialyte if infant/toddler/or child *Cold fluids, popsicles and ice cream may feel good on his throat Follow up IMMEDIATELY for new or worsening symptoms or no Noticeable improvement over the next 48-72 hours. 911 for difficulty breathing or swallowing Prescriptions: Azithromycin [Z-Garth 250mg Tab] 250 mg PO DIRECTED #6 tab Transmission Status: Pending to [facility] Referrals: Reid Sharma MD [Primary Care Provider] - Forms: Work/School Release Time of Disposition: 20:10 Medical Decision Making - Eddi Inquiry Pt receiving controlled substance: No Eddi was queried for this patient: No Vital Signs: 10/05/21 19:30 Temperature 98.6 F Temperature Source Oral Pulse Rate [Right Brachial] 80 Respiratory Rate 19 Blood Pressure [Right Arm] 109/70 L Blood Pressure Mean [Right Arm] 83 Blood Pressure Source [Right Arm] Automatic Cuff Blood Pressure Position [Right Arm] Sitting 02 Sat by Pulse Oximetry 98 Oxygen Delivery Method Room Air - Lab Data Lab results reviewed: Yes: I reviewed the patient's lab results. Lab Results 10/05/21 19:40: Strep Scn Rapid Clinic Positive A Medical Decision Narrative: Patient states that she has taken azithromycin in the past without complications or reactions [place] HPI - General Stated complaint: treated for covid type symptoms Time Seen by Provider: 10/05/21 19:56 Mode of Arrival: Ambulatory Source of Information: Patient Limitations: No Limitations Description of Symptoms (Recalled from Triage Doc. by RN): PATIENT C/O SORE THROAT, SOA, HEADACHE, AND COUGH. SHE STATES SHE WAS TESTED FOR COVID YESTERDAY HEENT Symptoms (Recalled from RN notes): Yes Resp Symptoms (Recalled from RN notes): Yes Skin Symptoms (Recalled from RN notes): No MS Symptoms (Recalled from RN notes): No Functional Status (Recalled from RN notes): WNL - History of Present Illness Provider Complaint: Patient states that she was tested for COVID yesterday and was negative States that she has been having sore throat, cough, chest congestion and not feeling well for close to a week States that her throat is hurting worse so she came in to get checked - Related Data Home Medications Medication Instructions Recorded Confirmed Citalopram Hydrobromide [Celexa] 40 mg PO DAILY 08/11/20 08/29/21 tiotropium bromide 2.5 2 puff IH DAILY 08/16/20 08/29/21 mcg/actuation mist for inhalation montelukast 10 mg tablet 10 mg PO PM tab 08/25/20 08/29/21 Previous Rx's Medication Instructions Recorded mupirocin 2 % topical ointment 1 applic TOPICAL BID #22 g 01/16/21 cholecalciferol (vitamin D3) 25 See Rx Instructions .ROUTE 03/15/21 mcg (1,000 unit) tablet .COMPLEX #30 tablet metoprolol tartrate 50 mg tablet See Rx Instructions .ROUTE 03/15/21 .COMPLEX #180 ta
[2021-10-05 20:13] VITALS: BP 109/70; PULSE 80; RESP 19; TEMP 37; O2SAT 98
== END 2021-10-05 20:18 | disposition home or self-care (01) ==
PROVIDERS: Emergency Provider Nurse Practitioner; PCP Emergency Medicine
DX: J02.0 Streptococcal pharyngitis (principal); U07.1 COVID-19; F41.8 Other specified anxiety disorders; Z79.899 Other long term (current) drug therapy
CPT/HCPCS: 87880; 99202; G0463

== ENCOUNTER → 2021-10-11 13:17 | Outpatient (CLI) | payer MEDICAID, SELFPAY ==
--- NOTE | 2021-10-11 13:17 | MM_ITS ---
PROCEDURE INFORMATION: Exam: MG Bilateral Screening 3D Mammography Exam date and time: 10/11/2021 1:17 PM Age: 56 years old Clinical indication: Encounter for screening mammogram for malignant neoplasm of breast . Family history of breast carcinoma. TECHNIQUE: Imaging protocol: Bilateral Screening tomosynthesis and 2D mammography including computer-aided detection (CAD) when performed. COMPARISON: 1. MG MM DIG SCREENING MAMM BI W/CAD 07/28/2020 9:07 AM 2. MG MM DIG SCREENING MAMM BI W/CAD 07/16/2019 5:54 PM 3. MG DXRT MM Dig mamm DX unilat RT CAD 09/08/2018 2:05 PM FINDINGS: MAMMOGRAPHY: Breast composition: There are scattered areas of fibroglandular density. Mass: No suspicious masses. Architectural distortion: No suspicious distortion. Post reduction changes noted bilaterally Calcifications: No suspicious calcifications. Asymmetric density: None. Skin thickening: None. Axillary adenopathy: None. IMPRESSION: No mammographic evidence of malignancy. Annual screening is recommended unless otherwise clinically indicated. ASSESSMENT: BI-RADS Category 2: Benign
== END ==
PROVIDERS: PCP Emergency Medicine; Visit Provider Emergency Medicine
DX: Z12.31 Encounter for screening mammogram for malignant neoplasm of breast (principal)
CPT/HCPCS: 77063; 77067

== ENCOUNTER → 2021-10-23 14:44 | Outpatient (CLI) | payer MEDICAID, SELFPAY ==
[2021-10-23 15:12] LABS: Alanine Aminotransferase 25 U/L (12-78); Albumin/Globulin Ratio 1.6 (1.1-1.8); Alkaline Phosphatase 130 U/L (38-126); Anion Gap 5.6 mEq/L (5-15); Aspartate Amino Transferase 24 U/L (14-36); Basophils # 0.1 K/mm3 (0-0.2); Basophils % 1.1 % (0.1-2.0); Bilirubin,Total 0.2 mg/dl (0.2-1.3); Blood Urea Nitrogen 15 mg/dl (7-17); Calcium 9.4 mg/dl (8.4-10.2); Carbon Dioxide 31 mmol/L (22.0-30.0); Chloride 106 mmol/L (98-107); Chol/HDL Ratio 3.6 (1-3.5); Cholesterol 197 mg/dl (140-200); Eosinophils # 0.4 K/mm3 (0.0-0.4); Eosinophils % 6.4 % (0.1-12.0); Estimated Glomerular Filt Rate 87 ml/min (>60); GFR (African American) 106 ML/MIN (>60); Globulin 2.5 g/dL (1.3-3.2); Glucose 93 mg/dl (74-100); HDL Cholesterol 54 mg/dl (40-60); Hematocrit 40.9 % (37.0-47.0); Hemoglobin 12.9 g/dL (12.2-16.2); Lymphocytes # 2.3 K/mm3 (0.7-4.5); Lymphocytes % 38.2 % (10-50); Mean Corpuscular HGB Conc 31.5 g/dL (31.8-35.4); Mean Corpuscular Hemoglobin 31.3 pg (27.0-31.2); Mean Corpuscular Volume 99.5 fl (81-99); Mean Platelet Volume 11.2 fl (7.4-10.4); Monocytes # 0.3 K/mm3 (0.1-1.0); Monocytes % 4.2 % (1.7-9.3); Neutrophils % 50.1 % (37.0-80.0); Platelet Count 158 K/mm3 (142-424); Potassium 4.6 mmoL/L (3.5-5.1); Red Blood Count 4.11 M/mm3 (4.20-5.40); Red Cell Distribution Width 14.2 % (11.5-17.5); Sodium 138 mmol/L (136-145); Total Protein,Serum 6.5 g/dl (6.3-8.2); Triglycerides 258 mg/dl (30-150); VLDL Cholesterol 52 mg/dL (0-40)
[2021-10-23 15:24] LABS: Direct LDL Cholesterol 81.64 mg/dL (100-129)
[2021-10-23 15:29] LABS: Free T4 (Free Thyroxine) 0.93 ng/dl (0.78-2.19)
[2021-10-23 15:44] LABS: Thyroid Stimulating Hormone 6.59 uIU/mL (0.465-4.68)
== END ==
PROVIDERS: Visit Provider Emergency Medicine
DX: E66.9 Obesity, unspecified (principal); E55.9 Vitamin D deficiency, unspecified; Z68.29 Body mass index [BMI] 29.0-29.9, adult
CPT/HCPCS: 80053; 80061; 82306; 84439; 84443; 85025

== ENCOUNTER → 2021-11-03 14:51 | Outpatient (CLI) | payer MEDICAID, SELFPAY | PROVIDERS: PCP Emergency Medicine; Visit Provider Nurse Practitioner | DX: Z20.822 Contact with and (suspected) exposure to COVID-19 (principal) | CPT/HCPCS: C9803; U0003; U0005 ==

== ENCOUNTER 2021-11-10 11:58 | Emergency (ER) | payer MEDICAID, SELFPAY ==
[2021-11-10 12:05] VITALS: BP 127/83; PULSE 70; RESP 19; TEMP 37.1; O2SAT 98; BMI 27.6
--- NOTE | 2021-11-10 12:35 | HMH.EDUTC ---
[facility] [place] Disposition Clinical Impression: Gastroenteritis Disposition: Home, Self-Care Condition on Discharge: Good Instructions: DI for Vomiting -- Adult, Ondansetron Additional Instructions: Drink extra fluids with and between meals. If you have difficulty drinking, try very small amounts of water or suck on ice chips. ? Avoid fruit juices, as these do not replace minerals and can actually increase diarrhea. ? Children and adults can use sports drinks to replenish electrolytes. Younger children and infants should use products formulated for children, like oral rehydration solutions. ? Eat food in small amounts and let your stomach recover. ? Get lots of rest. You may feel tired or weak. ? No greasy or fried foods for the next 24-48 hours BRAT diet Bananas Rice Apples and Veblen ? Make sure to drink plenty of liquids ? Return if needed ? Straight to ER if any life threatening symptoms ? Zofran as prescribed Make sure to drink plenty of replacement fluids like water, gatoraid liquid IV etc ? Follow up with family doctor in the next 48-72 hours if no improvement or any worsening of symptoms Prescriptions: Ondansetron [Zofran 4mg ODT] 4 mg PO TIDP PRN #12 tab PRN Reason: Vomiting Transmission Status: Pending to [facility] Referrals: Reid Sharma MD [Primary Care Provider] - As needed Forms: Work/School Release Time of Disposition: 13:21 Medical Decision Making - Eddi Inquiry Pt receiving controlled substance: No Eddi was queried for this patient: No Vital Signs: 11/10/21 12:05 Temperature 98.7 F Temperature Source Oral Pulse Rate [Right Brachial] 70 Respiratory Rate 19 Blood Pressure [Right Arm] 127/83 Blood Pressure Mean [Right Arm] 97 Blood Pressure Source [Right Arm] Automatic Cuff Blood Pressure Position [Right Arm] Sitting 02 Sat by Pulse Oximetry 98 Oxygen Delivery Method Room Air Orders (Tests/Meds): ED MEDICATIONS Discontinued Medications Generic Name Dose Route Start Last Admin Trade Name Freq PRN Reason Stop Dose Admin Ondansetron HCl 4 mg 11/10/21 12:40 11/10/21 12:44 Ondansetron 4mg Odt SL 11/10/21 12:41 4 mg ONCE ONE Administration Medical Decision Narrative: Patient states that she has taken zofran recently without complications or reactions with her medications After zofran patient drink 2 bottles water no vomiting [facility] [place] HPI - General Stated complaint: vomiting Time Seen by Provider: 11/10/21 12:35 Mode of Arrival: Ambulatory Source of Information: Patient Limitations: No Limitations Description of Symptoms (Recalled from Triage Doc. by RN): PATIENT C/O NAUSEA, VOMITING AND POSSIBLE THRUSH X 2 DAYS HEENT Symptoms (Recalled from RN notes): No Resp Symptoms (Recalled from RN notes): No Skin Symptoms (Recalled from RN notes): No MS Symptoms (Recalled from RN notes): No Functional Status (Recalled from RN notes): WNL - History of Present Illness Provider Complaint: Patient states that several people in her house hold has had a stomach virus States that for the last couple of days she has been having nausea and vomiting State that she noticed she had something that looked white on her tongue and she was worried that she may have thrush too - Related Data Home Medications Medication Instructions Recorded Confirmed Citalopram Hydrobromide [Celexa] 40 mg PO DAILY 08/11/20 08/29/21 tiotropium bromide 2.5 2 puff IH DAILY 08/16/20 08/29/21 mcg/actuation mist for inhalation montelukast 10 mg tablet 10 mg PO PM tab 08/25/20 08/29/21 Previous Rx's Medication Instructions Recorded mupirocin 2 % topical ointment 1 applic TOPICAL BID #22 g 01/16/21 cholecalciferol (vitamin D3) 25 See Rx Instructions .ROUTE 03/15/21 mcg (1,000 unit) tablet .COMPLEX #30 tablet metoprolol tartrate 50 mg tablet See Rx Instructions .ROUTE 03/15/21 .COMPLEX #180 tab albuterol sulfate 2.5 mg INHALATION Q4-6H PRN #180 ml 06/02/21 albuterol sulfate 90 mc
[2021-11-10 13:27] VITALS: BP 127/83; PULSE 70; RESP 19; TEMP 37.1; O2SAT 98
== END 2021-11-10 13:28 | disposition home or self-care (01) ==
PROVIDERS: Emergency Provider Nurse Practitioner; PCP Emergency Medicine
DX: K52.9 Noninfective gastroenteritis and colitis, unspecified (principal); F17.210 Nicotine dependence, cigarettes, uncomplicated; J44.9 Chronic obstructive pulmonary disease, unspecified; E11.9 Type 2 diabetes mellitus without complications
CPT/HCPCS: 99202; G0463

== ENCOUNTER → 2021-12-15 19:47 | Outpatient (CLI) | payer MEDICAID, SELFPAY ==
[2021-12-15 19:20] LABS: Phencyclidine Screen,Urine Negative ng/ml (<25)
[2021-12-15 19:32] LABS: Amphetamine/Metha Screen,Urine Negative ng/ml (<1000); Barbiturates Screen,Urine Negative ng/ml (<200)
[2021-12-15 19:33] LABS: Benzodiazepines Screen,Urine Negative ng/ml (<200)
[2021-12-15 19:34] LABS: Cannabinoid Screen,Urine Negative ng/ml (<50); Cocaine Screen,Urine Negative ng/ml (<300)
[2021-12-15 19:35] LABS: Methadone Screen,Urine Negative ng/ml (<300)
[2021-12-15 19:36] LABS: Opiate Screen,Urine Positive ng/ml (<300)
== END ==
PROVIDERS: Visit Provider Emergency Medicine
DX: Z79.899 Other long term (current) drug therapy (principal)
CPT/HCPCS: 80305

== ENCOUNTER → 2021-12-25 14:07 | Outpatient (CLI) | payer MEDICAID, SELFPAY ==
--- NOTE | 2021-12-25 14:12 | XR_ITS ---
FINAL REPORT CLINICAL HISTORY: cough COMPARISON: October 30, 2020 FINDINGS: Two views of the chest were obtained. The heart size and pulmonary vascularity are within normal limits. The mediastinum is normal. No acute pulmonary abnormality is identified. There is no pneumothorax. The bony thorax is intact. IMPRESSION: No active cardiopulmonary disease. Reviewed, Interpreted and Dictated by Olegario Hatch III, MD Transcribed by Moises Conroy Authenticated by Olegario Hatch III, MD on 12/25/2021 04:23:58 PM [facility]
[2021-12-25 17:00] LABS: Adenovirus,PCR Not Detected (NotDetected); Bordetella Pertussis Not Detected (NotDetected); Chlamydophila Pneumoniae, PCR Not Detected (NotDetected); Coronavirus 19, PCR Not Detected (NotDetected); Coronavirus 229E Not Detected (NotDetected); Coronavirus NL63 Not Detected (NotDetected); Coronavirus OC43 Not Detected (NotDetected); Coronovirus HKU1,PCR Not Detected (NotDetected); Human Metapneumovirus Not Detected (NotDetected); Influenza A, PCR Not Detected (NotDetected); Influenza AH1, 2009 Not Detected (NotDetected); Influenza AH1, PCR Not Detected (NotDetected); Influenza B, PCR Not Detected (NotDetected); Mycoplasma Pneumoniae, PCR Not Detected (NotDetected); Parainfluenza 1, PCR Not Detected (NotDetected); Parainfluenza 2, PCR Not Detected (NotDetected); Parainfluenza 3, PCR Not Detected (NotDetected); Parainfluenza 4, PCR Not Detected (NotDetected); Respiratory Syncytial Virus Not Detected (NotDetected); Rhinovirus/Enterovirus Not Detected (NotDetected)
[2021-12-25 20:19] LABS: Influenza AH3,PCR Detected (NotDetected)
== END ==
PROVIDERS: PCP Nurse Practitioner Family; Visit Provider Nurse Practitioner Family
DX: R05.9 Cough, unspecified (principal); R69 Illness, unspecified
CPT/HCPCS: 71046; 87581; 87632; 87798; C9803; U0003; U0005

== ENCOUNTER → 2022-01-23 09:57 | Outpatient (CLI) | payer MEDICAID, SELFPAY ==
[2022-01-23 10:35] VITALS: PULSE 66; PULSE 68
== END ==
PROVIDERS: PCP Emergency Medicine; Visit Provider Internal Medicine Pulmonary Disease
DX: R06.00 Dyspnea, unspecified (principal)
CPT/HCPCS: 94060; 94618; 94640; 94727; 94729

== ENCOUNTER → 2022-02-12 13:08 | Outpatient (CLI) | payer MEDICAID, SELFPAY ==
[2022-02-12 21:57] LABS: Amphetamine/Metha Screen,Urine Positive ng/ml (<1000); Barbiturates Screen,Urine Negative ng/ml (<200)
[2022-02-12 21:58] LABS: Benzodiazepines Screen,Urine Negative ng/ml (<200)
[2022-02-12 22:01] LABS: Cannabinoid Screen,Urine Negative ng/ml (<50); Cocaine Screen,Urine Negative ng/ml (<300)
[2022-02-12 22:02] LABS: Methadone Screen,Urine Negative ng/ml (<300)
[2022-02-12 22:05] LABS: Opiate Screen,Urine Negative ng/ml (<300)
[2022-02-12 22:06] LABS: Phencyclidine Screen,Urine Negative ng/ml (<25)
== END ==
PROVIDERS: PCP Emergency Medicine; Visit Provider Emergency Medicine
DX: Z79.899 Other long term (current) drug therapy (principal)
CPT/HCPCS: 80305

== ENCOUNTER → 2022-03-13 13:28 | Outpatient (CLI) | payer MEDICAID, SELFPAY ==
--- NOTE | 2022-03-13 13:28 | MR_ITS ---
FINAL REPORT CLINICAL HISTORY: back pain LOWER BACK PAIN WORSE ON RIGHT SIDED RIGHT LEG PAIN, NUMBNESS, AND TINGLING X 6-7 YEARS NO INJURY OR TRAUMA FINDINGS: MRI LUMBAR SPINE W/O CONTRAST Multiplanar MR imaging of the lumbar spine was performed without contrast. On the sagittal T2-weighted images, disc degeneration is seen at several levels. The vertebral alignment is normal. There is no evidence of fracture. The conus has an unremarkable appearance. There is a heterogeneous area lateral to the left kidney measuring 12 mm of uncertain etiology but could represent a complex/hemorrhagic cyst. L1-2: There is a small central disc protrusion. L2-3: An annular bulge is present. L3-4: An annular bulge is present. L4-5: There is an annular disc bulge with facet arthropathy. L5-S1: An annular bulge is present. IMPRESSION: Multilevel disc degeneration and spondylosis. Annular bulges at multiple levels. Heterogeneous area lateral to the left kidney of uncertain etiology, could represent a complex/hemorrhagic cyst. Reviewed, Interpreted and Dictated by Olegario Hatch III, MD Transcribed by Cary Powell Authenticated and [facility]
--- NOTE | 2022-03-13 14:40 | CT_ITS ---
FINAL REPORT TECHNIQUE: Axial images were obtained from the lung apex to the mid abdomen by computed tomography. Low-dose protocol was utilized. CLINICAL HISTORY: lung cancer screening, CURRENT SMOKER 1PPD X38 YEARS FINDINGS: CHEST CT LOW DOSE CTDI vol (mGy): 2.90 DLP (mGy-cm): 84.38 There is no axillary adenopathy. There is no hilar or mediastinal adenopathy. The heart is normal in size. There is no pericardial or pleural effusion. Multiple calcified granulomas are identified. There are several small pulmonary nodules. There is a 2 mm nodule in the posterior right upper lobe well seen on image # 22. There is a ground-glass nodule in the lateral right upper lobe measuring 4 mm, best seen on image # 25. Several other small nodules are identified. Note is made of mild scarring. Limited images of the upper abdomen are unremarkable. IMPRESSION: Several small pulmonary nodules as detailed above. Lung RADS category 2. Recommend 12 month follow-up low-dose chest CT. Reviewed, Interpreted and Dictated by Olegario Hatch III, MD Transcribed by Emmie Caldwell Authenticated and [facility]
== END ==
PROVIDERS: PCP Emergency Medicine; Visit Provider Internal Medicine Pulmonary Disease
DX: Z87.891 Personal history of nicotine dependence (principal); Z12.2 Encounter for screening for malignant neoplasm of respiratory organs; M54.16 Radiculopathy, lumbar region
CPT/HCPCS: 71271; 72148; 76376

== ENCOUNTER 2022-03-20 12:40 | Emergency (ER) | payer MEDICAID, SELFPAY ==
[2022-03-20 13:03] VITALS: BP 121/68; PULSE 67; RESP 16; TEMP 36.8; O2SAT 98; BMI 29.2
--- NOTE | 2022-03-20 13:11 | HMH.EDUTC ---
[facility] [place] Disposition Clinical Impression: COPD exacerbation, Exposure to COVID-19 virus Disposition: Home, Self-Care Condition on Discharge: Good Instructions: DI for Chronic Obstructive Pulmonary Disease, DI for COVID-19 (Suspected or Confirmed ), Preventing the Spread of Coronavirus Discharge Instructions Prescriptions: Promethazine/Dextromethorphan [Promethazine-Dm Syrup] 5 ml PO Q6HP PRN #240 ml PRN Reason: Cough Transmission Status: Received by [facility] Benzonatate [Benzonatate 100mg cap] 100 mg PO TIDP PRN #30 cap PRN Reason: Cough Transmission Status: Received by [facility] methylPREDNISolone [Medrol] 4 mg PO DIRECTED 6 Days #21 packet Transmission Status: Received by [facility] Cefdinir [Omnicef 300mg Capsule] 300 mg PO BID #20 cap Transmission Status: Received by [facility] Referrals: Reid Sharma MD [Primary Care Provider] - Medical Decision Making - Medical Records Medical records reviewed: No: I reviewed the patient's medical records. - Eddi Inquiry Pt receiving controlled substance: No Vital Signs: 03/20/22 13:03 03/20/22 14:09 Temperature 98.3 F 98.3 F Temperature Source Oral Pulse Rate 67 Pulse Rate [Left] 67 Respiratory Rate 16 16 Blood Pressure 121/68 Blood Pressure [Right Arm] 121/68 Blood Pressure Mean [Right Arm] 85 02 Sat by Pulse Oximetry 98 Orders (Tests/Meds): ORDERS Category Date Time Status Chest XR 2 view (NOT portable) [XR chest 2V] Stat Exams 03/20/22 13:46 Taken Chest XR AP view [XR chest AP] Stat Exams 03/20/22 13:10 Stop Req Covid-19 Nasal PCR ([facility]) Routine Lab 03/20/22 12:54 Received [facility] HPI - General Stated complaint: cough, covid test Time Seen by Provider: 03/20/22 13:11 Description of Symptoms (Recalled from Triage Doc. by RN): patient comes in for a covid test. patient has been exposed to someone in her house, and is now having symptoms. patient has been having cough, headache, fatigue for 3 days HEENT Symptoms (Recalled from RN notes): Yes Resp Symptoms (Recalled from RN notes): Yes Skin Symptoms (Recalled from RN notes): No MS Symptoms (Recalled from RN notes): No Functional Status (Recalled from RN notes): wnl - History of Present Illness Provider Complaint: She states that she has felt bad for the past 2 days. She has 4 family members in her home that currently have covid-19. She has had fever, chills, body aches and sinus congestion. She has a history of copd. - Related Data Previous Rx's Medication Instructions Recorded metoprolol tartrate 50 mg tablet See Rx Instructions .ROUTE 03/15/21 .COMPLEX #180 tab estradiol 1 mg tablet 1 mg PO DAILY #30 tab 10/04/21 albuterol sulfate 90 mcg/actuation 1 puff INHALATION QIDP PRN 90 Days 11/17/21 aerosol inhaler #8.5 g lisinopril 20 See Rx Instructions .ROUTE 11/28/21 mg-hydrochlorothiazide 25 mg tablet .COMPLEX #30 tab levothyroxine 50 mcg tablet See Rx Instructions .ROUTE 12/15/21 .COMPLEX #90 tab metformin 500 mg tablet,extended See Rx Instructions .ROUTE 12/15/21 release 24 hr .COMPLEX #90 tab cholecalciferol (vitamin D3) 25 See Rx Instructions .ROUTE 01/08/22 mcg (1,000 unit) tablet .COMPLEX #30 tab citalopram 40 mg tablet See Rx Instructions .ROUTE 01/19/22 .COMPLEX #90 tablet azelastine 137 mcg (0.1 %) nasal 2 spray INTRANASAL BID 90 Days #30 01/24/22 spray aerosol ml doxycycline hyclate 100 mg capsule 100 mg PO BID 5 Days #10 cap 01/24/22 fluticasone 500 mcg-salmeterol 50 1 inh INHALATION BID #180 each 01/24/22 mcg/dose blistr powdr for inhalation fluticasone propionate 50 2 spray INTRANASAL BID 90 Days 01/24/22 mcg/actuation nasal #15.8 ml spray,suspension montelukast 10 mg tablet 10 mg PO DAILY #60 tab 01/24/22 phentermine 37.5 mg tablet 37.5 mg PO DAILY #30 tab 02/02/22 clonazepam 0.5 mg tablet 0.5 mg PO BID #60 tab 02/12/22 gabapentin 600 mg tablet 600 mg PO BID #60 tab 05
--- NOTE | 2022-03-20 13:46 | XR_ITS ---
FINAL REPORT CLINICAL HISTORY: cough. pt states she was exposed to covid over the weekend and has a cough, and congestion. COMPARISON: December 25, 2021 FINDINGS: Two views of the chest were obtained. The heart size and pulmonary vascularity are within normal limits. The mediastinum is normal. There are mild bibasilar opacities, favor atelectasis. There is a small right pleural effusion. There is no pneumothorax. The bony thorax is intact. IMPRESSION: Mild bibasilar opacities, favor atelectasis. Reviewed, Interpreted and Dictated by Olegario Hacth III, MD Transcribed by Cary Powell Authenticated and [facility]
[2022-03-20 14:09] VITALS: BP 121/68; PULSE 67; RESP 16; TEMP 36.8
== END 2022-03-20 14:10 | disposition home or self-care (01) ==
PROVIDERS: Emergency Provider Nurse Practitioner Family; PCP Emergency Medicine
DX: U07.1 COVID-19 (principal); J44.1 Chronic obstructive pulmonary disease with (acute) exacerbation
CPT/HCPCS: 71046; 99212; C9803; G0463; U0003; U0005

== ENCOUNTER 2022-03-24 16:05 | Emergency (ER) | payer MEDICAID, SELFPAY ==
[2022-03-24 16:20] VITALS: BP 160/91; PULSE 75; RESP 19; TEMP 36.8; O2SAT 99; BMI 29.2
[2022-03-24 16:30] VITALS: BP 157/89; PULSE 67; RESP 18; O2SAT 98
--- NOTE | 2022-03-24 16:31 | XR_ITS ---
PROCEDURE INFORMATION: Exam: XR Chest Exam date and time: 03/24/2022 4:39 PM Age: 56 years old Clinical indication: Shortness of breath and other: Covid positive; Additional info: Covid positive, SOA, RT lung pain TECHNIQUE: Imaging protocol: Radiologic exam of the chest. Views: 1 view. COMPARISON: CR XR CHEST 2V 03/20/2022 1:47 PM FINDINGS: Airway: Normal central airways. Lungs: Patchy and ground-glass airspace opacities with segmental bronchial wall thickening in the right lung base. Bilateral segmental bronchial wall thickening is appreciated. Remainder of the lungs are clear. Pleural spaces: Blunting of the right costophrenic angle. Left costophrenic angle is clear. No pneumothorax. Heart/Mediastinum: Mild cardiomegaly. Upper mediastinum is normal. Bones/joints: No acute skeletal abnormality or aggressive osseous lesion. IMPRESSION: As compared with the 03/20/2022 examination, there is persistent and essentially stable acute airspace and interstitial disease in the right lung base and bilateral perihilar regions. This is concerning for persistent atypical pneumonia.
--- NOTE | 2022-03-24 16:31 | XR_ITS ---
PROCEDURE INFORMATION: Exam: XR Right Shoulder Exam date and time: 03/24/2022 4:39 PM Age: 56 years old Clinical indication: Pain; Shoulder; Right TECHNIQUE: Imaging protocol: Radiologic exam of the Right shoulder. Views: 2 or more views. COMPARISON: CR XR CHEST 2V 03/20/2022 1:47 PM FINDINGS: Bones/joints: There are moderate degenerative changes of the right acromioclavicular joint. There is no evidence of acutely displaced skeletal fractures. There is no evidence of joint dislocation. No aggressive osseous lesions. Soft tissues: There is no significant soft tissue swelling. Visualized chest is unremarkable. IMPRESSION: 1. Moderate osteoarthritic changes of the right acromioclavicular joint. 2. No acute skeletal pathology.
--- NOTE | 2022-03-24 16:54 | HMH.EDGENADL ---
ED Disposition Clinical Impression: COVID-19 virus infection Pneumonia Qualifiers: Pneumonia type: due to unspecified organism Laterality: right Lung location: lower lobe of lung Qualified Code(s): J18.9 - Pneumonia, unspecified organism Disposition: Home, Self-Care Condition on Discharge: Good Instructions: DI for COVID-19 (Suspected or Confirmed ) Additional Instructions: Take Paxlovid as prescribed. Rest, drink plenty of fluids. Tylenol or Ibuprofen for fever and/or aches and pains. Monitor your symptoms. IF YOU HAVE AN EMERGENCY WARNING SIGN (INCLUDING TROUBLE BREATHING), SEEK EMERGENCY MEDICAL CARE IMMEDIATELY. COVID-19 Isolation: People with COVID-19 should isolate for 5 days. Then if they are asymptomatic (no symptoms) or their symptoms are resolving (without fever for 24 hours), follow that by 5 days of wearing a mask when around others to minimize the risk of infecting people you encounter. If you test positive for COVID-19 and never develop symptoms, day 0 is the day of your positive viral test (based on the date you were tested) and day 1 is the first full day after your positive test. If you develop symptoms after testing positive, your 5-day isolation period must start over. Day 0 is your first day of symptoms. Day 1 is the first full day after your symptoms developed. What to do: Stay in a separate room from other household members, if possible. Use a separate bathroom, if possible. Avoid contact with other members of the household and pets. Don?t share personal household items, like cups, towels, and utensils. Wear a mask when around other people if able. Prescriptions: Nirmatrelvir/Ritonavir [Paxlovid 150-100 mg Pack (Eua)] 1 each PO BID #1 tab Transmission Status: Pending to [facility] Referrals: Reid Sharma MD [Primary Care Provider] - - Critical Care Critical Care Time: No Attestation: On 03/24/22, the high probability of a clinically significant, sudden or life threatening deterioration of the following system(s) required my full and direct attention, intervention and personal management. The time I documented below is in addition to time spent performing reported procedures but includes the following listed in this critical care notation. Medical Decision Making - Eddi Inquiry Pt receiving controlled substance: No Vital Signs: 03/24/22 16:20 Temperature 98.3 F Temperature Source Oral Pulse Rate [Right Radial] 75 Respiratory Rate 19 Blood Pressure [Right Arm] 160/91 H Blood Pressure Mean [Right Arm] 114 Blood Pressure Source [Right Arm] Automatic Cuff Blood Pressure Position [Right Arm] Sitting 02 Sat by Pulse Oximetry 99 Oxygen Delivery Method Room Air - Lab Data Lab Results 03/24/22 16:55: WBC 5.7, RBC 4.19 L, Hgb 13.6, Hct 42.8, MCV 102.0 H, MCH 32.4 H, MCHC 31.7 L, RDW 14.1, Plt Count 125 L, MPV 10.3, Neut % (Auto) 72.8, Lymph % (Auto) 18.6, Bryan % (Auto) 5.7, Eos % (Auto) 1.7, Baso % (Auto) 1.1, Neut # (Auto) 4.2, Lymph # (Auto) 1.1, Bryan # (Auto) 0.3, Eos # (Auto) 0.1, Baso # (Auto) 0.1 03/24/22 16:55: Sodium 139, Potassium 3.8, Chloride 107, Carbon Dioxide 27, Anion Gap 8.8, BUN 14, Creatinine 0.50 L, Estimated Creat Clear 138, Estimated GFR 129, Est GFR ( Amer) 156, Glucose 165 H, Calcium 8.6, Total Bilirubin < 0.1 L, AST 36, ALT 45, Alkaline Phosphatase 179 H, Total Protein 6.5, Albumin 3.5, Globulin 3.0, Albumin/Globulin Ratio 1.2 03/24/22 16:55: D-Dimer 0.49 Result diagrams: 03/24/22 16:55 03/24/22 16:55 Orders (Tests/Meds): ED MEDICATIONS Generic Name Dose Route Start Last Admin Trade Name Freq PRN Reason Stop Dose Admin Sodium Chloride 10 ml 03/24/22 16:31 Sodium Chloride 0.9% 10ml Flush Syringe IV 04/23/22 16:30 NEEDED PRN Maintain IV Site - Radiology Data #1 Image(s): Chest (Preliminary interpretation by me: No significant change from 03/20/2022. ), Shoulder (Preliminary interpreta
[2022-03-24 17:21] LABS: Basophils # 0.1 K/mm3 (0-0.2); Basophils % 1.1 % (0.1-2.0); Eosinophils # 0.1 K/mm3 (0.0-0.4); Eosinophils % 1.7 % (0.1-12.0); Hematocrit 42.8 % (37.0-47.0); Hemoglobin 13.6 g/dL (12.2-16.2); Lymphocytes # 1.1 K/mm3 (0.7-4.5); Lymphocytes % 18.6 % (10-50); Mean Corpuscular HGB Conc 31.7 g/dL (31.8-35.4); Mean Corpuscular Hemoglobin 32.4 pg (27.0-31.2); Mean Platelet Volume 10.3 fl (7.4-10.4); Monocytes # 0.3 K/mm3 (0.1-1.0); Monocytes % 5.7 % (1.7-9.3); Neutrophils # 4.2 K/mm3 (1.8-7.8); Neutrophils % 72.8 % (37.0-80.0); Platelet Count 125 K/mm3 (142-424); Red Blood Count 4.19 M/mm3 (4.20-5.40); Red Cell Distribution Width 14.1 % (11.5-17.5); White Blood Count 5.7 K/mm3 (4.8-10.8)
[2022-03-24 17:25] LABS: Alanine Aminotransferase 45 U/L (12-78); Albumin Level 3.5 g/dl (3.5-5.0); Albumin/Globulin Ratio 1.2 (1.1-1.8); Alkaline Phosphatase 179 U/L (38-126); Anion Gap 8.8 mEq/L (5-15); Aspartate Amino Transferase 36 U/L (14-36); Blood Urea Nitrogen 14 mg/dl (7-17); Calcium 8.6 mg/dl (8.4-10.2); Carbon Dioxide 27 mmol/L (22.0-30.0); Chloride 107 mmol/L (98-107); Creatinine Clearance Estimated 138 mL/min (50-200); Estimated Glomerular Filt Rate 129 ml/min (>60); GFR (African American) 156 ML/MIN (>60); Glucose 165 mg/dl (74-100); Potassium 3.8 mmoL/L (3.5-5.1); Sodium 139 mmol/L (136-145); Total Protein,Serum 6.5 g/dl (6.3-8.2)
[2022-03-24 17:30] LABS: Bilirubin,Total < 0.1 mg/dl (0.2-1.3)
[2022-03-24 17:31] LABS: D-Dimer 0.49 ug/mL (0.0-0.5)
[2022-03-24 18:11] VITALS: BP 154/86; PULSE 72; RESP 18; TEMP 36.8; O2SAT 98
== END 2022-03-24 18:12 | disposition home or self-care (01) ==
PROVIDERS: Emergency Provider Emergency Medicine; PCP Emergency Medicine
DX: U07.1 COVID-19 (principal); J18.9 Pneumonia, unspecified organism; J44.9 Chronic obstructive pulmonary disease, unspecified; Z79.899 Other long term (current) drug therapy; Z88.1 Allergy status to other antibiotic agents; Z88.8 Allergy status to other drugs, medicaments and biological substances; Z88.6 Allergy status to analgesic agent; E11.9 Type 2 diabetes mellitus without complications; K21.9 Gastro-esophageal reflux disease without esophagitis; E78.5 Hyperlipidemia, unspecified; I10 Essential (primary) hypertension; F41.9 Anxiety disorder, unspecified
CPT/HCPCS: 71045; 73030; 80053; 85025; 85378; 99283

== ENCOUNTER 2022-03-27 20:22 | Emergency (ER) | payer MEDICAID, SELFPAY ==
[2022-03-27 20:23] VITALS: BP 193/110; PULSE 103; RESP 24; TEMP 37.4; O2SAT 99; BMI 29.2
--- NOTE | 2022-03-27 20:36 | CT_ITS ---
PROCEDURE INFORMATION: Exam: CTA Chest With Contrast Exam date and time: 03/27/2022 9:25 PM Age: 56 years old Clinical indication: Shortness of breath; Patient HX: Covid +; Additional info: SOA TECHNIQUE: Imaging protocol: Computed tomographic angiography of the chest with contrast. 3D rendering (Not supervised by radiologist): MIP and/or 3D reconstructed images were created by the technologist. Radiation optimization: All CT scans at this facility use at least one of these dose optimization techniques: automated exposure control; mA and/or kV adjustment per patient size (includes targeted exams where dose is matched to clinical indication); or iterative reconstruction. Contrast material: ISOVUE; Contrast volume: 70 ml; Contrast route: INTRAVENOUS (IV); COMPARISON: CT ANGIO CHEST 12/12/2019 9:46 PM FINDINGS: Pulmonary arteries: Normal. No pulmonary emboli. Aorta: No aortic aneurysm. No aortic dissection. Lungs: Examination is limited by motion. Stable calcified granuloma. Scattered subpleural nodular opacities measuring up to 4 mm. No consolidation. No masses. Pleural spaces: No pneumothorax. No pleural effusion. Heart: No cardiomegaly. No pericardial effusion. Lymph nodes: No enlarged lymph nodes. Bones/joints: No acute fracture. Soft tissues: No significant swelling. IMPRESSION: No consolidation. Scattered subpleural nodular opacities measuring up to 4 mm. For patients at low risk (minimal or absent history of smoking and of other known risk factors), no routine follow-up is indicated. For patients at high risk (history of smoking or of other known risk factors), consider optional CT Chest at 12 months. (Reference: Rubens) References: Saulhoglenroy Hussein, et al. Guidelines for Management of Incidental Pulmonary Nodules Detected on CT Images: From the Fleischner Society 2017. Radiology. 2017;284(1):228-243. Scattered subpleural nodular opacities measuring up to 4 mm.
--- NOTE | 2022-03-27 20:36 | CT_ITS ---
PROCEDURE INFORMATION: Exam: CT Abdomen And Pelvis Without Contrast Exam date and time: 03/27/2022 9:22 PM Age: 56 years old Clinical indication: Abdominal pain; Flank; Right; Additional info: RT flank pain TECHNIQUE: Imaging protocol: Computed tomography of the abdomen and pelvis without contrast. Radiation optimization: All CT scans at this facility use at least one of these dose optimization techniques: automated exposure control; mA and/or kV adjustment per patient size (includes targeted exams where dose is matched to clinical indication); or iterative reconstruction. COMPARISON: CT ABDOMEN PELVIS WO CON 10/10/2020 10:56 PM FINDINGS: Liver: Parenchymal enhancement is not evaluated without contrast. No hepatomegaly. Gallbladder and bile ducts: Post cholecystectomy change. Pancreas: Parenchymal enhancement is not evaluated without contrast. No ductal dilation. Spleen: There are multiple splenic calcifications likely on the basis of prior granulomatous exposure. Adrenal glands: Bilateral low-density adrenal nodules measuring 11 mm. Kidneys and ureters: Low-density renal lesions measuring up to 16 mm. No hydronephrosis. Stomach and bowel: Moderate to large stool burden within the colon. No bowel obstruction. Appendix: No evidence of appendicitis. Intraperitoneal space: No free air. No significant fluid collection. Vasculature: Limited evaluation without contrast. No abdominal aortic aneurysm. Lymph nodes: No enlarged lymph nodes. Urinary bladder: No acute abnormality. Reproductive: No acute abnormality. Bones/joints: No acute fracture. Soft tissues: Limited evaluation without contrast. No significant soft tissue swelling. IMPRESSION: 1. Bilateral low-density adrenal nodules compatible with adenomas. 2. Moderate to large stool burden within the colon.
--- NOTE | 2022-03-27 20:54 | ECG_ITS ---
APPROVED REPORT Exam: Resting ECG HR:89 bpm ECG Measurements Heart Rate 89 AXES VT 110 P 61 QRSd 82 QRS 62 QT 309 T 50 QTc 355 Conclusion SINUS RHYTHM WITH SHORT VT INTERVAL NONSPECIFIC ST & T-WAVE ABNORMALITY BORDERLINE ECG UNCONFIRMED REPORT Electronically signed by : Sarkis Monk MD 03/29/2022 17:43:34
--- NOTE | 2022-03-27 20:58 | HMH.EDSOB ---
ED Disposition Clinical Impression: COVID-19 virus infection, Tobacco use, Hypothyroidism (acquired), Overweight (BMI 25.0-29.9) COPD (chronic obstructive pulmonary disease) Qualifiers: COPD type: unspecified COPD Qualified Code(s): J44.9 - Chronic obstructive pulmonary disease, unspecified Disposition: Home, Self-Care Condition on Discharge: Fair Instructions: DI for COVID-19 (Suspected or Confirmed ) Additional Instructions: use meds and call pcp for follow up Referrals: Reid Sharma MD [Primary Care Provider] - - Critical Care Critical Care Time: No Attestation: On 03/27/22, the high probability of a clinically significant, sudden or life threatening deterioration of the following system(s) required my full and direct attention, intervention and personal management. The time I documented below is in addition to time spent performing reported procedures but includes the following listed in this critical care notation. Medical Decision Making - Medical Records Medical records reviewed: Yes: I reviewed the patient's medical records. - Eddi Inquiry Pt receiving controlled substance: No Vital Signs: 03/27/22 20:23 Temperature 99.4 F Temperature Source Oral Pulse Rate [Right] 103 H Respiratory Rate 24 Blood Pressure [Right Arm] 193/110 H Blood Pressure Mean [Right Arm] 137 02 Sat by Pulse Oximetry 99 - Lab Data Lab results reviewed: Yes: I reviewed the patient's lab results. Lab Results 03/27/22 20:49: WBC 8.0, RBC 4.36, Hgb 13.7, Hct 44.7, MCV 102.3 H, MCH 31.5 H, MCHC 30.7 L, RDW 14.1, Plt Count 153, MPV 9.8, Neut % (Auto) 66.2, Lymph % (Auto) 23.2, [place] % (Auto) 4.6, Eos % (Auto) 4.6, Baso % (Auto) 1.4, Neut # (Auto) 5.3, Lymph # (Auto) 1.8, [place] # (Auto) 0.4, Eos # (Auto) 0.4, Baso # (Auto) 0.1, ESR 55 H 03/27/22 20:49: Sodium 139, Potassium 3.7, Chloride 108 H, Carbon Dioxide 28, Anion Gap 6.7, BUN 18 H, Creatinine 0.70, Estimated Creat Clear 99, Estimated GFR 87, Est GFR ( Amer) 106, Glucose 111 H, Calcium 8.9, Total Bilirubin < 0.1 L, AST 31, ALT 56, Alkaline Phosphatase 172 H, C-Reactive Protein 6.3 H, Total Protein 6.7, Albumin 3.6, Globulin 3.1, Albumin/Globulin Ratio 1.2, Amylase 105, Procalcitonin 0.062 03/27/22 20:49: Troponin I < 0.01, Lipase 187 Result diagrams: 03/27/22 20:49 03/27/22 20:49 Orders (Tests/Meds): ED MEDICATIONS Generic Name Dose Route Start Last Admin Trade Name Freq PRN Reason Stop Dose Admin Sodium Chloride 1,000 mls @ 999 mls/hr 03/27/22 20:45 03/27/22 21:05 Sod Chlor 0.9% 1000ml Bag IV 03/27/22 21:45 999 mls/hr .Q1H1M [place] Administration Discontinued Medications Generic Name Dose Route Start Last Admin Trade Name Freq PRN Reason Stop Dose Admin Dexamethasone Sodium Phosphate 10 mg 03/27/22 20:39 03/27/22 21:05 Dexamethasone 4mg/Ml 5ml Mdv IV 03/27/22 20:40 10 mg ONCE ONE Administration Iopamidol 70 ml 03/27/22 21:39 03/27/22 21:44 Iopamidol-370 (76%);100ml Bottle IV 03/27/22 21:40 70 ml ONCE ONE Administration Sodium Chloride 50 ml 03/27/22 21:39 03/27/22 21:44 0.9 % Sodium Chloride 50 Ml Vial IV 03/27/22 21:40 50 ml ONCE ONE Administration Sodium Chloride 10 ml 03/27/22 21:39 03/27/22 21:44 Sodium Chloride 0.9% 10ml Syr (Rad Only) IV 03/27/22 21:40 10 ml ONCE ONE Administration ORDERS Category Date Time Status Troponin I Q3H Lab 03/27/22 23:45 Ordered Troponin I Q3H Lab 03/28/22 02:45 Ordered Urinalysis and Microscopic Stat Lab 03/27/22 20:36 Ordered - Radiology Data #1 Image(s): Chest Image Reviewed: Yes I have reviewed radiologist's interpretation Preliminary Findings: Normal/NAD - CT Data CT Scan: Abdomen, Pelvis, Chest Time Received: 22:[address] Reviewed: Yes: I have viewed the radiologist's interpretation Preliminary Findings: Normal/NAD - ECG Data Tracing #1 Normal Sinus Rhythm: Yes Ischemic changes: non-specific ST-T wave changes -
[2022-03-27 20:59] LABS: Basophils # 0.1 K/mm3 (0-0.2); Basophils % 1.4 % (0.1-2.0); Eosinophils # 0.4 K/mm3 (0.0-0.4); Eosinophils % 4.6 % (0.1-12.0); Hematocrit 44.7 % (37.0-47.0); Hemoglobin 13.7 g/dL (12.2-16.2); Lymphocytes # 1.8 K/mm3 (0.7-4.5); Lymphocytes % 23.2 % (10-50); Mean Corpuscular HGB Conc 30.7 g/dL (31.8-35.4); Mean Corpuscular Hemoglobin 31.5 pg (27.0-31.2); Mean Corpuscular Volume 102.3 fl (81-99); Mean Platelet Volume 9.8 fl (7.4-10.4); Monocytes # 0.4 K/mm3 (0.1-1.0); Monocytes % 4.6 % (1.7-9.3); Neutrophils # 5.3 K/mm3 (1.8-7.8); Neutrophils % 66.2 % (37.0-80.0); Platelet Count 153 K/mm3 (142-424); Red Blood Count 4.36 M/mm3 (4.20-5.40); Red Cell Distribution Width 14.1 % (11.5-17.5)
--- NOTE | 2022-03-27 21:01 | XR_ITS ---
PROCEDURE INFORMATION: Exam: XR Chest Exam date and time: 03/27/2022 9:30 PM Age: 56 years old Clinical indication: Shortness of breath; Additional info: SOA TECHNIQUE: Imaging protocol: Radiologic exam of the chest. Views: 1 view. COMPARISON: CR XR CHEST PORTABLE 03/24/2022 4:39 PM FINDINGS: Lungs: Stable elevation of the right hemidiaphragm. No consolidation. Pleural spaces: No pneumothorax. Heart/Mediastinum: No cardiomegaly. Bones/joints: No acute abnormality. IMPRESSION: No acute findings.
[2022-03-27 21:09] LABS: Alanine Aminotransferase 56 U/L (12-78); Albumin Level 3.6 g/dl (3.5-5.0); Albumin/Globulin Ratio 1.2 (1.1-1.8); Alkaline Phosphatase 172 U/L (38-126); Amylase 105 U/L (30-110); Anion Gap 6.7 mEq/L (5-15); Aspartate Amino Transferase 31 U/L (14-36); Bilirubin,Total < 0.1 mg/dl (0.2-1.3); Blood Urea Nitrogen 18 mg/dl (7-17); Calcium 8.9 mg/dl (8.4-10.2); Carbon Dioxide 28 mmol/L (22.0-30.0); Chloride 108 mmol/L (98-107); Creatinine Clearance Estimated 99 mL/min (50-200); Estimated Glomerular Filt Rate 87 ml/min (>60); GFR (African American) 106 ML/MIN (>60); Globulin 3.1 g/dL (1.3-3.2); Glucose 111 mg/dl (74-100); Lipase 187 U/L (23-300); Potassium 3.7 mmoL/L (3.5-5.1); Sodium 139 mmol/L (136-145); Total Protein,Serum 6.7 g/dl (6.3-8.2)
[2022-03-27 21:14] LABS: C-Reactive Protein 6.3 mg/L (0-4)
[2022-03-27 21:25] LABS: Procalcitonin 0.062 ng/mL (0.0-2.0); Troponin I < 0.01 ng/ml (0.00-0.034)
[2022-03-27 21:41] LABS: Erythrocyte Sedimentation Rate 55 mm/hr (0-30)
[2022-03-27 23:02] VITALS: BP 135/78; PULSE 85; RESP 19; TEMP 36.9; O2SAT 98
== END 2022-03-27 23:04 | disposition home or self-care (01) ==
PROVIDERS: Emergency Provider Emergency Medicine; PCP Emergency Medicine
DX: U07.1 COVID-19 (principal); E03.9 Hypothyroidism, unspecified; Z72.0 Tobacco use; E66.9 Obesity, unspecified; Z68.29 Body mass index [BMI] 29.0-29.9, adult; J44.9 Chronic obstructive pulmonary disease, unspecified; Z88.1 Allergy status to other antibiotic agents; Z88.2 Allergy status to sulfonamides; Z88.8 Allergy status to other drugs, medicaments and biological substances; F41.9 Anxiety disorder, unspecified; E11.9 Type 2 diabetes mellitus without complications; I10 Essential (primary) hypertension
CPT/HCPCS: 71045; 71275; 74176; 80053; 82150; 83690; 84145; 84484; 85025; 85651; 86140; 93005; 96365; 96375; 99284; Q9967

== ENCOUNTER 2022-04-19 12:26 | Emergency (ER) | payer MEDICAID, SELFPAY ==
[2022-04-19 12:36] VITALS: BP 0/0; PULSE 0; RESP 0; TEMP -17.7; TEMP 0
== END 2022-04-19 12:36 | disposition left against medical advice (07) ==
PROVIDERS: Emergency Provider Nurse Practitioner; PCP Emergency Medicine
DX: Z53.21 Procedure and treatment not carried out due to patient leaving prior to being seen by health care provider (principal)

== ENCOUNTER 2022-05-17 16:19 | Emergency (ER) | payer MEDICAID, SELFPAY ==
[2022-05-17 17:20] VITALS: BP 159/102; PULSE 68; RESP 21; TEMP 37; O2SAT 94; BMI 32.4
--- NOTE | 2022-05-17 18:05 | EXP.UTC ---
Discharge Plan Disposition Patient Disposition: Home, Self-Care Condition: Good Prescriptions Prescriptions: New methylprednisolone [Medrol (Garth)] 4 mg tablets,dose pack 4 mg PO DAILY Qty: 21 0RF cefdinir 300 mg capsule 300 mg PO BID Qty: 20 0RF No Action pantoprazole [Protonix] 40 mg tablet,delayed release (DR/EC) 40 mg PO DAILY 60 Days Qty: 60 2RF albuterol sulfate 90 mcg/actuation HFA aerosol inhaler 1 puff INHALATION QIDP PRN (Reason: Shortness Of Breath) 90 Days Qty: 8.5 3RF azelastine 137 mcg (0.1 %) aerosol,spray 2 spray INTRANASAL BID 90 Days Qty: 30 3RF Rx Instructions: administer into each nostril citalopram 40 mg tablet See Rx Instructions .ROUTE .COMPLEX Qty: 90 2RF Dose Instruction: TAKE ONE TABLET BY MOUTH ONCE A DAY FOR DEPRESSION Rx Instructions: TAKE ONE TABLET BY MOUTH ONCE A DAY FOR DEPRESSION ergocalciferol (vitamin D2) 1,250 mcg (50,000 unit) capsule See Rx Instructions .ROUTE .COMPLEX Qty: 4 3RF Dose Instruction: TAKE ONE CAPSULE BY MOUTH EVERY WEEK Rx Instructions: TAKE ONE CAPSULE BY MOUTH EVERY WEEK estradiol 1 mg tablet 1 mg PO DAILY Qty: 30 11RF fluconazole [Diflucan] 100 mg tablet 100 mg PO DAILY Qty: 5 0RF fluticasone propion-salmeterol [Advair Diskus] 500-50 mcg/dose blister with device 1 inh INHALATION BID Qty: 180 3RF fluticasone propionate 50 mcg/actuation spray,suspension 2 spray INTRANASAL BID 90 Days Qty: 15.8 3RF Rx Instructions: administer into each nostril levothyroxine 50 mcg tablet See Rx Instructions .ROUTE .COMPLEX Qty: 90 0RF Dose Instruction: TAKE ONE TABLET BY MOUTH ONCE A DAY Rx Instructions: TAKE ONE TABLET BY MOUTH ONCE A DAY lisinopril-hydrochlorothiazide 20-25 mg tablet See Rx Instructions .ROUTE .COMPLEX Qty: 30 3RF Dose Instruction: TAKE 1 TABLET BY MOUTH ONCE DAILY FOR HYPERTENSION Rx Instructions: TAKE 1 TABLET BY MOUTH ONCE DAILY FOR HYPERTENSION metformin 500 mg tablet extended release 24 hr See Rx Instructions .ROUTE .COMPLEX Qty: 90 0RF Dose Instruction: TAKE ONE TABLET BY MOUTH ONCE A DAY Rx Instructions: TAKE ONE TABLET BY MOUTH ONCE A DAY metoprolol tartrate 50 mg tablet See Rx Instructions .ROUTE .COMPLEX Qty: 180 3RF Dose Instruction: TAKE ONE TABLET BY MOUTH 2 TIMES A DAY FOR HYPERTENSION Rx Instructions: TAKE ONE TABLET BY MOUTH 2 TIMES A DAY FOR HYPERTENSION montelukast [Singulair] 10 mg tablet 10 mg PO DAILY Qty: 60 4RF gabapentin 600 mg tablet 600 mg PO BID Qty: 60 1RF clonazepam 0.5 mg tablet 0.5 mg PO BID Qty: 60 1RF oxycodone-acetaminophen [Percocet] 5-325 mg tablet 1 tab PO TID PRN (Reason: pain) Qty: 90 0RF tizanidine 4 mg tablet See Rx Instructions .ROUTE .COMPLEX Qty: 60 0RF Dose Instruction: TAKE ONE TABLET BY MOUTH 2 TIMES A DAY NEEDED FOR MUSCLE SPASMS Rx Instructions: TAKE ONE TABLET BY MOUTH 2 TIMES A DAY NEEDED FOR MUSCLE SPASMS cholecalciferol (vitamin D3) 25 mcg (1,000 unit) tablet See Rx Instructions .ROUTE .COMPLEX Qty: 30 3RF Dose Instruction: TAKE ONE TABLET BY MOUTH ONCE A DAY Rx Instructions: TAKE ONE TABLET BY MOUTH ONCE A DAY promethazine-DM 120 ML syrup 5 ml PO Q6HP PRN (Reason: Cough) Qty: 240 0RF nirmatrelvir-ritonavir 1 EACH tablet 1 each PO BID Qty: 1 0RF Rx Instructions: 1 standard dose pack, 5 day treatment Referrals Referrals: Reid Sharma MD [Primary Care Provider] - Enter time for follow up Activity Restrictions/Add. Instructions Additional Instructions/Restrictions: *Monitor Temp, Over the counter Motrin or Tylenol as directed/as needed Tylenol every 4 hours and Motrin every 6 hours (as long as your family doctor has told you that you can take it) for fever or pain. and straight to ER if unable to lower temp less than 101.0 after medication given *War
[2022-05-17 18:29] VITALS: BP 159/102; PULSE 68; RESP 21; TEMP 37; O2SAT 94
== END 2022-05-17 18:34 | disposition home or self-care (01) ==
PROVIDERS: Emergency Provider Nurse Practitioner; PCP Emergency Medicine
DX: J32.9 Chronic sinusitis, unspecified (principal); J40 Bronchitis, not specified as acute or chronic; Z20.822 Contact with and (suspected) exposure to COVID-19
CPT/HCPCS: 99212; C9803; G0463; U0003; U0005

== ENCOUNTER → 2022-05-24 13:55 | Outpatient (POV) | payer MEDICAID, SELFPAY ==
[2022-05-24 14:05] VITALS: BP 148/84; PULSE 61; RESP 20; BMI 30.2
--- NOTE | 2022-05-24 14:51 | EXP.PAIN.OV ---
HPI Data of Consult Requesting Physician: Ivelisse Gardner APRN Primary Care Provider: Reid Sharma MD Consult Narrative Reason for consult: Neck pain, right shoulder pain, right arm pain, low back pain, right leg pa History of present illness: Ms. Corrales is a 56 year old female presents today as a new patient. She is a consult from Dr. Reid Sharma. Patient rates her pain today a 5 out of 10. She states she has pain throughout her body including her neck to her right shoulder that radiates down her right arm as well as her low back that radiates down her right leg. Patient states this has been going on since she was about 42 years old and has just progressed. She describes her neck pain as a dull ache with tingling/numbness in her fingers. She states her low back pain is a sharp pain that radiates down her right leg frequently to her heel. Patient states she did have an incident when she was younger where her neck popped and she felt like she may have pulled a muscle and has had issues since. She did have a breast reduction in the past thinking that may help with her back pain. Patient states she does have pain from turning her head side to side or with increased activity. She states she is better with rest and using her pain medications. Patient has never been to physical therapy in the past. She has seen a chiropractor however that was years ago and did not seem to get much relief. Patient states she is nondiabetic but might be borderline. 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 Patient is currently managed with Percocet 5 mg 3 times a day, gabapentin 600 mg twice a day along with clonazepam 0.5 mg twice a day all written by Dr. Sharma. Patient denies any side effects from these medications. She states these medications are adequately managing her pain. Her Eddi is [id number]. It has been reviewed and appropriate. CC: Ivelisse Gardner APRN [facility] Medical History (Updated 05/24/22 @ 14:56 by Ivelisse Gardner APRN) Anxiety Asthma COPD (chronic obstructive pulmonary disease) Depression Diabetes Hard of hearing History of anemia History of chest pain History of gastroesophageal reflux (GERD) Hypertension Hypothyroid Migraine Urinary tract infection Surgical History (Updated 05/24/22 @ 14:17 by Mirlande Gonzalez RN) H/O bilateral breast reduction surgery H/O section H/O exploratory laparotomy H/O lumpectomy H/O tubal ligation H/O: hysterectomy Family History (Updated 05/24/22 @ 14:14 by Mirlande Gonzalez RN) Other No significant family history Social History (Updated 05/24/22 @ 14:14 by Mirlande Gonzalez RN) Smoking Status: Current every day smoker tobacco type: cigarettes packs per day: 1 second hand exposure: Yes alcohol intake: never substance use type: denies use current occupational status: employed and other Travel in the last 8 weeks: None household members: significant other housing: house 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 current occupational exposures/hazards: No caffeine: Yes Review of Systems Review of Systems Review of systems:: pertinent systems reviewed and negative unless documented below Review of systems (narrative): Review of Systems: General: No recent weight changes, no fever, no sleep disturbances Respiratory: No cough, no shortness of air, no recurring pulmonary infections Cardiovascular/peripheral vascular: No chest pain, no palpitations, no edema, no shortness of breath Gastrointestinal: No new onset incontinence, normal bowel movements reported Genitourinary: No new onset incontinence Musculoskeletal: Neck pain, right shoulder pain, low back pain, right leg pain Psychiatric: [Normal mood/affect] Neurological: [Denies weakness in extremities], [denies balance issues] Meds Home Medications and Allergies Home Medications Medication Instructions Recorded Confirmed
== END ==
PROVIDERS: PCP Emergency Medicine; Visit Provider Nurse Practitioner Family
DX: M50.223 Other cervical disc displacement at C6-C7 level (principal); M51.16 Intervertebral disc disorders with radiculopathy, lumbar region; M47.26 Other spondylosis with radiculopathy, lumbar region; M46.1 Sacroiliitis, not elsewhere classified
CPT/HCPCS: 99202; G0463

== ENCOUNTER 2022-05-31 12:53 | Outpatient (RCR) | payer MEDICAID, SELFPAY ==
--- NOTE | 2022-05-31 14:15 | HMH.PTOPEV ---
PT Outpatient Evaluation Rehab PT Outpatient Evaluation Start: 05/31/22 12:58 Freq: Status: Active Protocol: Document 05/31/22 13:22 CROW (Rec: 05/31/22 14:10 CROW [id number]) E-signed By Marvel Armendariz, PT Outpatient Therapy Subjective History Subjective History Pt reports h/o chronic neck pain and LBP for ~40 yrs. Pt reports right sided neck pain > left side, and right > left sided LBP as well. Pt reports some referred pain from neck into shoulder area, and right LE radicular s/s from right hip to foot. Pt reports previous xrays of lumbar spine revealed DDD. Chief Complaint Pain,Stiff,Paresthesia, Weakness Symptom Type Ache,Sharp,Dull Symptoms Relieved By Rest/Positioning,Heat Symptoms Aggravated By Sitting,Bending/Stooping, Physical Activity,Twisting, Walking,Lifting Prior Functional Limitations Lifting,Housework,Driving, Standing,Walking,Bending/ Stooping Current Functional Limitations Lifting,Housework,Driving, Standing,Walking,Bending/ Stooping Symptom Description Constant but Variable Level of pain today (0-10) 7 Pain scale - at its best (0-10) 7 Pain scale - at its worst (0-10) 9 Cervical Eval Palpation Cervical Muscles R Cervical Paraspinal,L Cervical Paraspinal,R CT Junction,R Thoracic Paraspinals Cervical/Thoracic Palpation Findings Tenderness,Trigger Point, Muscle Guarding Posture Head/C-Spine Posture Sitting Position Flexed Head/C-Spine Posture Standing Position Flexed Flexibility Deficits Upper Trapezius Muscle Length (L) Mild Tightness,(R) Moderate Tightness Scalene Group Muscle Length (L) Mild Tightness,(R) Moderate Tightness Passive Joint Mobility Cervical PIVM Dec: R OA L OA R AA L AA R C2/3 L C2/3 R C3/4 L C3/4 R C4/5 L C4/5
== END 2022-05-31 12:55 | disposition home or self-care (01) ==
LOC: PT 12:53
PROVIDERS: PCP Emergency Medicine; Visit Provider Nurse Practitioner Family
DX: M54.50 Low back pain, unspecified (principal); M54.2 Cervicalgia
CPT/HCPCS: 97010; 97014; 97035; 97163; G0283

== ENCOUNTER 2022-06-17 20:04 | Emergency (ER) | payer MEDICAID, SELFPAY ==
[2022-06-17 20:15] VITALS: BP 189/90; RESP 17; TEMP 36.9; O2SAT 97; BMI 31.2
--- NOTE | 2022-06-17 20:21 | XR_ITS ---
PROCEDURE INFORMATION: Exam: XR Right Wrist Exam date and time: 06/17/2022 8:23 PM Age: 57 years old Clinical indication: Injury or trauma; Other: Hit a sink; Swelling (edema); Hand; Right; Additional info: Punched sink- now having pain in right hand TECHNIQUE: Imaging protocol: Radiologic exam of the Right wrist. Views: 3 or more views. COMPARISON: CR Hand R 06/17/2022 8:21 PM FINDINGS: Bones/joints: Normal. Soft tissues: Normal. IMPRESSION: No acute findings.
--- NOTE | 2022-06-17 20:21 | XR_ITS ---
PROCEDURE INFORMATION: Exam: XR Right Hand Exam date and time: 06/17/2022 8:21 PM Age: 57 years old Clinical indication: Injury or trauma; Other: Hit a wall; Swelling (edema); Hand; Right; Additional info: Punched sink- now having pain in hand TECHNIQUE: Imaging protocol: Radiologic exam of the Right hand. Views: 3 or more views. COMPARISON: CR XR HAND RT MIN 3V 05/21/2020 4:52 PM FINDINGS: Bones/joints: Normal. Soft tissues: Normal. IMPRESSION: No acute findings.
--- NOTE | 2022-06-17 20:47 | HMH.EDUPEXT ---
Discharge Plan Disposition Patient Disposition: Home, Self-Care Chief Complaint: Extremity Injury, Upper Prescriptions Prescriptions: No Action albuterol sulfate 90 mcg/actuation HFA aerosol inhaler 1 puff INHALATION QIDP PRN (Reason: Shortness Of Breath) 90 Days Qty: 8.5 3RF estradiol 1 mg tablet 1 mg PO DAILY Qty: 30 11RF clonazepam 0.5 mg tablet 0.5 mg PO BID Qty: 60 0RF gabapentin 600 mg tablet 600 mg PO BID Qty: 60 0RF oxycodone-acetaminophen [Percocet] 5-325 mg tablet 1 tab PO TID PRN (Reason: pain) Qty: 90 0RF tizanidine 4 mg tablet See Rx Instructions .ROUTE .COMPLEX Qty: 60 3RF Dose Instruction: TAKE ONE TABLET BY MOUTH 2 TIMES A DAY NEEDED FOR MUSCLE SPASMS Rx Instructions: TAKE ONE TABLET BY MOUTH 2 TIMES A DAY NEEDED FOR MUSCLE SPASMS promethazine-DM 120 ML syrup 5 ml PO Q6HP PRN (Reason: Cough) Qty: 240 0RF citalopram 40 mg tablet See Rx Instructions .ROUTE .COMPLEX Rx Instructions: TAKE ONE TABLET BY MOUTH ONCE A DAY FOR DEPRESSION levothyroxine 50 mcg tablet See Rx Instructions .ROUTE .COMPLEX Rx Instructions: TAKE ONE TABLET BY MOUTH ONCE A DAY pantoprazole [Protonix] 40 mg tablet,delayed release (DR/EC) 40 mg PO DAILY fluticasone propion-salmeterol [Advair Diskus] 500-50 mcg/dose blister with device 1 inh INHALATION BID metoprolol tartrate 50 mg tablet See Rx Instructions .ROUTE .COMPLEX Rx Instructions: TAKE ONE TABLET BY MOUTH 2 TIMES A DAY FOR HYPERTENSION lisinopril-hydrochlorothiazide 20-25 mg tablet See Rx Instructions .ROUTE .COMPLEX Rx Instructions: TAKE 1 TABLET BY MOUTH ONCE DAILY FOR HYPERTENSION montelukast [Singulair] 10 mg tablet 10 mg PO DAILY ergocalciferol (vitamin D2) 1,250 mcg (50,000 unit) capsule See Rx Instructions .ROUTE .COMPLEX Rx Instructions: TAKE ONE CAPSULE BY MOUTH EVERY WEEK azelastine 137 mcg (0.1 %) aerosol,spray 2 spray INTRANASAL BID Rx Instructions: administer into each nostril fluticasone propionate 50 mcg/actuation spray,suspension 2 spray INTRANASAL BID Rx Instructions: administer into each nostril metformin 500 mg tablet extended release 24 hr See Rx Instructions .ROUTE .COMPLEX Rx Instructions: TAKE ONE TABLET BY MOUTH ONCE A DAY cholecalciferol (vitamin D3) 25 mcg (1,000 unit) tablet See Rx Instructions .ROUTE .COMPLEX Rx Instructions: TAKE ONE TABLET BY MOUTH ONCE A DAY nirmatrelvir-ritonavir 1 EACH tablets,dose pack 1 each PO BID Rx Instructions: 1 standard dose pack, 5 day treatment Referrals Follow up/Referrals: Reid Sharma MD [Primary Care Provider] - See instructions Clinical Impressions Clinical Impression: Hand sprain Instructions Patient Instructions: Sprain Discharge ED Provider: Reid Sharma Upper Extremity HPI General Chief Complaint: Extremity Injury, Upper Stated Complaint: AO@0925@1800@HOME Injured right hand Time Seen by Provider: 06/17/22 20:47 Mode of Arrival: Ambulatory Source of Information: Patient and Medical Record Limitations: No Limitations Description of Symptoms (Recalled from ER Triage Doc. by RN): RIGHT HAND INJURY AFTER PUNCHING WOODEN SINK. RIGHT HAND WITH BRUISING AND SOME NUMBNESS IN 4TH AND FIFTH FINGERS. PT STATES SHE HAS PERCOCET AND GABAPENTIN AT HOME BUT DID NOT TAKE ANY PRIOR TO ARRIVAL. History of Present Illness HPI narrative: acute rt hand injury as punched wall - this pm complaint: injury to: right and hand Onset (ago): hour(s) Other Extremity Injury: Right: hand Handedness: right Place: home Severity: moderate Context: direct blow Associated symptoms: denies other symptoms Related Data Home Medications Medication Instructions Recorded Confirmed azelastine 137 mcg (0.1 %) nasal 2 spray intranasal BID . 05/24/22 05/24/22 spray aerosol cholecalciferol (vitamin D
--- NOTE | 2022-06-17 20:52 | PC.NURSE ---
ICE PACK PROVIDED. PT OFFERED TYLENOL FOR PAIN AND REFUSED.
[2022-06-17 21:07] VITALS: BP 170/76; PULSE 80; RESP 20; TEMP 36.7; O2SAT 98
== END 2022-06-17 21:11 | disposition home or self-care (01) ==
PROVIDERS: Emergency Provider Emergency Medicine; PCP Emergency Medicine
DX: S63.91XA Sprain of unspecified part of right wrist and hand, initial encounter (principal); W22.09XA Striking against other stationary object, initial encounter; Z79.84 Long term (current) use of oral hypoglycemic drugs; Z79.899 Other long term (current) drug therapy; Z88.1 Allergy status to other antibiotic agents; Z88.2 Allergy status to sulfonamides; Z88.8 Allergy status to other drugs, medicaments and biological substances; J44.9 Chronic obstructive pulmonary disease, unspecified; F41.9 Anxiety disorder, unspecified; E11.9 Type 2 diabetes mellitus without complications; I10 Essential (primary) hypertension; E03.9 Hypothyroidism, unspecified; G43.909 Migraine, unspecified, not intractable, without status migrainosus
CPT/HCPCS: 73110; 73130; 99283

== ENCOUNTER → 2022-07-06 16:00 | Outpatient (CLI) | payer MEDICAID, SELFPAY ==
[2022-07-06 19:07] LABS: Amphetamine/Metha Screen,Urine Negative ng/ml (<1000); Barbiturates Screen,Urine Negative ng/ml (<200)
[2022-07-06 19:08] LABS: Benzodiazepines Screen,Urine Negative ng/ml (<200)
[2022-07-06 19:09] LABS: Cannabinoid Screen,Urine Negative ng/ml (<50); Cocaine Screen,Urine Negative ng/ml (<300)
[2022-07-06 19:10] LABS: Methadone Screen,Urine Negative ng/ml (<300)
[2022-07-06 19:11] LABS: Opiate Screen,Urine Positive ng/ml (<300)
[2022-07-06 19:12] LABS: Phencyclidine Screen,Urine Negative ng/ml (<25)
== END ==
PROVIDERS: PCP Emergency Medicine; Visit Provider Emergency Medicine
DX: Z79.899 Other long term (current) drug therapy (principal)
CPT/HCPCS: 80305

== ENCOUNTER 2022-07-16 00:07 | Emergency (ER) | payer MEDICAID, SELFPAY ==
--- NOTE | 2022-07-16 00:16 | CT_ITS ---
PROCEDURE INFORMATION: Exam: CT Abdomen And Pelvis With Contrast Exam date and time: 07/16/2022 12:58 AM Age: 57 years old Clinical indication: Abdominal pain; Generalized; Prior surgery; Surgery date: 6+ months; Surgery type: Uterus and left ovary removed. Gb; Additional info: Abdominal pain, blood in stool TECHNIQUE: Imaging protocol: Computed tomography of the abdomen and pelvis with contrast. Radiation optimization: All CT scans at this facility use at least one of these dose optimization techniques: automated exposure control; mA and/or kV adjustment per patient size (includes targeted exams where dose is matched to clinical indication); or iterative reconstruction. Contrast material: ISOVUE; Contrast volume: 75 ml; Contrast route: IV; COMPARISON: CT ABDOMEN PELVIS WO CON 03/27/2022 9:22 PM FINDINGS: Lungs: Predominantly right basilar probable atelectasis or scarring. Liver: No suspicious mass. Gallbladder and bile ducts: Cholecystectomy. Mild intrahepatic biliary duct prominence. Pancreas: No ductal dilation. No peripancreatic inflammatory changes. Spleen: Few calcified granulomas in the spleen. Adrenal glands: Significant nodular adrenal thickening. Kidneys and ureters: Bilateral renal cysts and too small to characterize hypodensities. Stomach and bowel: Colonic diverticulosis without evidence of acute diverticulitis. Relatively mild thickening of the descending colon, suspicious for mild colitis. Appendix: No evidence of appendicitis. Intraperitoneal space: No free air. No ascites. Vasculature: No abdominal aortic aneurysm. Atherosclerotic calcifications. Lymph nodes: No enlarged lymph nodes. Urinary bladder: Diffuse thickening of the urinary bladder wall, nonspecific, cystitis is possible. Reproductive: Hysterectomy. Indeterminate fullness in the region of vaginal cuff. Bones/joints: No suspicious osseous lesion. No acute fracture. Scattered degenerative changes. Soft tissues: No suspicious mass. IMPRESSION: 1. Relatively mild thickening of the descending colon, suspicious for mild colitis. Recommend imaging follow-up until complete resolution. 2. Significant nodular adrenal thickening. Correlate with MRI 3. Indeterminate fullness in the region of vaginal cuff. Correlate with MRI 4. Diffuse thickening of the urinary bladder wall, nonspecific, cystitis is possible. Correlate with UA. COMMENTS: Consistent with the [employer]'s Incidental Findings Committee white paper (J Am Delbert Radiol 2018): Any incidental renal lesion less than 1 cm or classified as too small to characterize, or any incidental cystic renal lesion characterized as simple-appearing, is likely benign. No follow-up imaging is recommended for these lesions per consensus recommendations based on imaging criteria.
[2022-07-16 00:18] VITALS: BP 165/96; PULSE 74; RESP 18; TEMP 36.9; O2SAT 99; BMI 31.2
--- NOTE | 2022-07-16 00:18 | HMH.EDGENADL ---
Discharge Plan Disposition Patient Disposition: Home, Self-Care Condition: Good Prescriptions Prescriptions: New dicyclomine 10 mg capsule 10 mg PO BID PRN (Reason: cramps) Qty: 20 0RF ondansetron 4 mg tablet,disintegrating 4 mg PO Q6H PRN (Reason: nausea and vomiting) Qty: 10 0RF No Action albuterol sulfate 90 mcg/actuation HFA aerosol inhaler 1 puff INHALATION QIDP PRN (Reason: Shortness Of Breath) 90 Days Qty: 8.5 3RF estradiol 1 mg tablet 1 mg PO DAILY Qty: 30 11RF clonazepam 0.5 mg tablet 0.5 mg PO BID Qty: 60 1RF gabapentin 600 mg tablet 600 mg PO BID Qty: 60 1RF oxycodone-acetaminophen [Percocet] 5-325 mg tablet 1 tab PO TID PRN (Reason: pain) Qty: 90 0RF tizanidine 4 mg tablet See Rx Instructions .ROUTE .COMPLEX Qty: 60 3RF Dose Instruction: TAKE ONE TABLET BY MOUTH 2 TIMES A DAY NEEDED FOR MUSCLE SPASMS Rx Instructions: TAKE ONE TABLET BY MOUTH 2 TIMES A DAY NEEDED FOR MUSCLE SPASMS promethazine-DM 120 ML syrup 5 ml PO Q6HP PRN (Reason: Cough) Qty: 240 0RF citalopram 40 mg tablet See Rx Instructions .ROUTE .COMPLEX Rx Instructions: TAKE ONE TABLET BY MOUTH ONCE A DAY FOR DEPRESSION levothyroxine 50 mcg tablet See Rx Instructions .ROUTE .COMPLEX Rx Instructions: TAKE ONE TABLET BY MOUTH ONCE A DAY pantoprazole [Protonix] 40 mg tablet,delayed release (DR/EC) 40 mg PO DAILY fluticasone propion-salmeterol [Advair Diskus] 500-50 mcg/dose blister with device 1 inh INHALATION BID metoprolol tartrate 50 mg tablet See Rx Instructions .ROUTE .COMPLEX Rx Instructions: TAKE ONE TABLET BY MOUTH 2 TIMES A DAY FOR HYPERTENSION lisinopril-hydrochlorothiazide 20-25 mg tablet See Rx Instructions .ROUTE .COMPLEX Rx Instructions: TAKE 1 TABLET BY MOUTH ONCE DAILY FOR HYPERTENSION montelukast [Singulair] 10 mg tablet 10 mg PO DAILY ergocalciferol (vitamin D2) 1,250 mcg (50,000 unit) capsule See Rx Instructions .ROUTE .COMPLEX Rx Instructions: TAKE ONE CAPSULE BY MOUTH EVERY WEEK azelastine 137 mcg (0.1 %) aerosol,spray 2 spray INTRANASAL BID Rx Instructions: administer into each nostril fluticasone propionate 50 mcg/actuation spray,suspension 2 spray INTRANASAL BID Rx Instructions: administer into each nostril metformin 500 mg tablet extended release 24 hr See Rx Instructions .ROUTE .COMPLEX Rx Instructions: TAKE ONE TABLET BY MOUTH ONCE A DAY cholecalciferol (vitamin D3) 25 mcg (1,000 unit) tablet See Rx Instructions .ROUTE .COMPLEX Rx Instructions: TAKE ONE TABLET BY MOUTH ONCE A DAY nirmatrelvir-ritonavir 1 EACH tablets,dose pack 1 ea PO BID Rx Instructions: 1 standard dose pack, 5 day treatment Referrals Follow up/Referrals: Reid Sharma MD [Primary Care Provider] - See instructions Activity Restrictions/Add. Instructions Additional Instructions/Restrictions: You have been evaluated for abdominal pain, diarrhea. Work-up today shows evidence of colitis. Please monitor your symptoms closely. Stay hydrated. Bentyl for cramps. Zofran for nausea. Follow-up with your primary care doctor for stool studies. Return to the emergency department at once for any new or worsening symptoms, pain, vomiting, other concerns. You have incidental findings on your CT scan, adrenal hyperplasia and hyperplasia at the vaginal cuff. Please follow-up with your primary care doctor. You may need ultrasound or MRI imaging. Clinical Impressions Clinical Impression: Colitis Instructions Patient Instructions: DI for Acute Abdominal Pain, DI for Colitis Discharge ED Provider: Liz Whitney Adult HPI General Chief complaint: Abdominal Pain Stated complaint: Stomach pain,V/D blood in stool Time Seen by Provider: 07/16/22 00:16 History of Present Illness HPI narrative: 57-year-old female presenting to
[2022-07-16 00:31] LABS: Basophils # 0.1 K/mm3 (0-0.2); Basophils % 1.9 % (0.1-2.0); Eosinophils # 0.5 K/mm3 (0.0-0.4); Eosinophils % 6.1 % (0.1-12.0); Hematocrit 45.6 % (37.0-47.0); Hemoglobin 14.7 g/dL (12.2-16.2); Lymphocytes # 2.1 K/mm3 (0.7-4.5); Lymphocytes % 28.8 % (10-50); Mean Corpuscular HGB Conc 32.2 g/dL (31.8-35.4); Mean Corpuscular Hemoglobin 32.3 pg (27.0-31.2); Mean Corpuscular Volume 100.5 fl (81-99); Mean Platelet Volume 11.6 fl (7.4-10.4); Monocytes # 0.4 K/mm3 (0.1-1.0); Monocytes % 5.1 % (1.7-9.3); Neutrophils # 4.3 K/mm3 (1.8-7.8); Neutrophils % 58.1 % (37.0-80.0); Platelet Count 135 K/mm3 (142-424); Red Blood Count 4.54 M/mm3 (4.20-5.40); Red Cell Distribution Width 13.6 % (11.5-17.5); White Blood Count 7.4 K/mm3 (4.8-10.8)
[2022-07-16 00:37] LABS: Alanine Aminotransferase 64 U/L (12-78); Albumin Level 4.2 g/dl (3.5-5.0); Albumin/Globulin Ratio 1.4 (1.1-1.8); Alkaline Phosphatase 146 U/L (38-126); Anion Gap 13.5 mEq/L (5-15); Aspartate Amino Transferase 30 U/L (14-36); Bilirubin,Total 0.3 mg/dl (0.2-1.3); Blood Urea Nitrogen 16 mg/dl (7-17); Calcium 9.2 mg/dl (8.4-10.2); Carbon Dioxide 30 mmol/L (22.0-30.0); Chloride 103 mmol/L (98-107); Creatinine Clearance Estimated 91 mL/min (50-200); Estimated Glomerular Filt Rate 74 ml/min (>60); GFR (African American) 90 ML/MIN (>60); Glucose 108 mg/dl (74-100); Lipase 97 U/L (23-300); Potassium 3.5 mmoL/L (3.5-5.1); Sodium 143 mmol/L (136-145); Total Protein,Serum 7.2 g/dl (6.3-8.2)
[2022-07-16 01:30] VITALS: BP 168/80; PULSE 60; O2SAT 98
--- NOTE | 2022-07-16 01:33 | PC.NURSE ---
rechecked pt condition. Pt advised that she was still in pain. RN notified.
[2022-07-16 02:07] LABS: Lactic Acid < 0.5 mmol/L (0.7-2.1)
--- NOTE | 2022-07-16 02:32 | PC.NURSE ---
DR. LOCKETT IN TO GIVE PATIENT AN UPDATE ON TESTS. SHE INFORMED PATIENT THE ONLY THING WE NEED IS A STOOL SAMPLE.
--- NOTE | 2022-07-16 02:56 | PC.NURSE ---
PATIENT PROVIDED URINE SAMPLE, SENT TO LAB.
[2022-07-16 03:01] LABS: Microscopic, Urine URINE MICROSCOPIC (MICROSCOPIC)
[2022-07-16 03:04] LABS: Appearance,Urine CLEAR (Clear); Bilirubin,Urine Negative (Negative); Blood, Urine Negative (Negative); Color,Urine YELLOW (Yellow); Glucose,Urine (UA) Negative (Negative); Ketones,Urine Negative (Negative); Leukocyte Esterase,Urine Negative (Negative); Nitrate,Urine Negative (Negative); PH,Urine 6.5 (5.0-8.5); Protein,Urine Negative (Negative); Specific Gravity, Urine <= 1.005 (1.005-1.030); Urobilinogen,Urine 0.2 EU/dl (0.2)
[2022-07-16 03:15] VITALS: BP 150/82; PULSE 78; RESP 20; TEMP 36.8; O2SAT 98
== END 2022-07-16 03:28 | disposition home or self-care (01) ==
PROVIDERS: Emergency Provider Emergency Medicine; PCP Emergency Medicine
DX: K92.1 Melena (principal); R11.2 Nausea with vomiting, unspecified; R19.7 Diarrhea, unspecified; I10 Essential (primary) hypertension; K21.9 Gastro-esophageal reflux disease without esophagitis; E03.9 Hypothyroidism, unspecified; E11.9 Type 2 diabetes mellitus without complications; G43.909 Migraine, unspecified, not intractable, without status migrainosus; R63.0 Anorexia; H91.90 Unspecified hearing loss, unspecified ear; J44.9 Chronic obstructive pulmonary disease, unspecified; F32.A Depression, unspecified; F41.9 Anxiety disorder, unspecified; F17.210 Nicotine dependence, cigarettes, uncomplicated; Z79.51 Long term (current) use of inhaled steroids; Z79.84 Long term (current) use of oral hypoglycemic drugs; Z79.890 Hormone replacement therapy; Z79.899 Other long term (current) drug therapy; Z88.0 Allergy status to penicillin; Z88.1 Allergy status to other antibiotic agents; Z88.2 Allergy status to sulfonamides; Z88.3 Allergy status to other anti-infective agents; Z88.8 Allergy status to other drugs, medicaments and biological substances; Z68.31 Body mass index [BMI] 31.0-31.9, adult; Z86.2 Personal history of diseases of the blood and blood-forming organs and certain disorders involving the immune mechanism; Z87.440 Personal history of urinary (tract) infections; Z82.49 Family history of ischemic heart disease and other diseases of the circulatory system; Z82.5 Family history of asthma and other chronic lower respiratory diseases
CPT/HCPCS: 74177; 80053; 81001; 83605; 83690; 85025; 96361; 96374; 96375; 99285; J2405; Q9967

== ENCOUNTER → 2022-07-16 15:49 | Outpatient (CLI) | payer MEDICAID, SELFPAY | PROVIDERS: PCP Emergency Medicine; Visit Provider Emergency Medicine | DX: R10.9 Unspecified abdominal pain (principal); R19.7 Diarrhea, unspecified ==

== ENCOUNTER → 2022-07-20 17:23 | Outpatient (CLI) | payer MEDICAID, SELFPAY ==
[2022-07-20 19:04] LABS: Adenovirus F 40/41, stool Not Detected (NotDetected); Astrovirus Not Detected (NotDetected); Campylobacter Not Detected (NotDetected); Clostridium Difficile A/B, PCR Not Detected (NotDetected); Cryptosporidium Not Detected (NotDetected); Cyclospora Cayetanesis Not Detected (NotDetected); Entamoeba histolytica Not Detected (NotDetected); Enteroaggregative E coli Not Detected (NotDetected); Enteropathogenic E coli Not Detected (NotDetected); Enterotoxigenic E coli Not Detected (NotDetected); Giardia lamblia Not Detected (NotDetected); Norovirus Not Detected (NotDetected); Plesimonas Shigalloides, PCR Not Detected (NotDetected); Rotavirus A Not Detected (NotDetected); Salmonella, PCR Not Detected (NotDetected); Sapovirus Not Detected (NotDetected); Shiga-like toxin E coli Not Detected (NotDetected); Shigella Enterovasive E coli Not Detected (NotDetected); Vibrio Cholerae Not Detected (NotDetected); Vibrio, PCR Not Detected (NotDetected); Yersinia Entercolitica, PCR Not Detected (NotDetected)
== END ==
PROVIDERS: PCP Emergency Medicine; Visit Provider Emergency Medicine
DX: R10.9 Unspecified abdominal pain (principal); R19.7 Diarrhea, unspecified
CPT/HCPCS: 87507

== ENCOUNTER → 2022-09-03 21:38 | Outpatient (CLI) | payer MEDICAID, SELFPAY ==
[2022-09-03 19:55] LABS: Amphetamine/Metha Screen,Urine Negative ng/ml (<1000); Barbiturates Screen,Urine Negative ng/ml (<200)
[2022-09-03 19:56] LABS: Benzodiazepines Screen,Urine Negative ng/ml (<200); Cannabinoid Screen,Urine Negative ng/ml (<50)
[2022-09-03 19:58] LABS: Cocaine Screen,Urine Negative ng/ml (<300); Methadone Screen,Urine Negative ng/ml (<300)
[2022-09-03 19:59] LABS: Opiate Screen,Urine Negative ng/ml (<300); Phencyclidine Screen,Urine Negative ng/ml (<25)
== END ==
PROVIDERS: Visit Provider Emergency Medicine
DX: Z79.899 Other long term (current) drug therapy (principal)
CPT/HCPCS: 80305

== ENCOUNTER → 2022-10-12 14:32 | Outpatient (CLI) | payer MEDICAID, SELFPAY ==
[2022-10-12 15:54] LABS: Adenovirus,PCR Not Detected (NotDetected); Bordetella Pertussis Not Detected (NotDetected); Chlamydophila Pneumoniae, PCR Not Detected (NotDetected); Coronavirus 19, PCR Not Detected (NotDetected); Coronavirus 229E Not Detected (NotDetected); Coronavirus NL63 Not Detected (NotDetected); Coronavirus OC43 Not Detected (NotDetected); Coronovirus HKU1,PCR Not Detected (NotDetected); Human Metapneumovirus Not Detected (NotDetected); Influenza A, PCR Not Detected (NotDetected); Influenza AH1, 2009 Not Detected (NotDetected); Influenza AH1, PCR Not Detected (NotDetected); Influenza AH3,PCR Not Detected (NotDetected); Influenza B, PCR Not Detected (NotDetected); Mycoplasma Pneumoniae, PCR Not Detected (NotDetected); Parainfluenza 1, PCR Not Detected (NotDetected); Parainfluenza 2, PCR Not Detected (NotDetected); Parainfluenza 3, PCR Not Detected (NotDetected); Parainfluenza 4, PCR Not Detected (NotDetected); Respiratory Syncytial Virus Not Detected (NotDetected); Rhinovirus/Enterovirus Not Detected (NotDetected)
== END ==
PROVIDERS: PCP Emergency Medicine; Visit Provider Emergency Medicine
DX: R50.9 Fever, unspecified (principal); R51.9 Headache, unspecified; R59.9 Enlarged lymph nodes, unspecified
CPT/HCPCS: 87581; 87632; 87798; C9803; U0003; U0005

== ENCOUNTER → 2022-10-31 10:45 | Outpatient (CLI) | payer MEDICAID, SELFPAY ==
[2022-10-31 16:31] LABS: Amphetamine/Metha Screen,Urine Negative ng/ml (<1000); Barbiturates Screen,Urine Negative ng/ml (<200); Benzodiazepines Screen,Urine Negative ng/ml (<200); Cannabinoid Screen,Urine Negative ng/ml (<50); Cocaine Screen,Urine Negative ng/ml (<300); Methadone Screen,Urine Negative ng/ml (<300); Opiate Screen,Urine Negative ng/ml (<300); Phencyclidine Screen,Urine Negative ng/ml (<25)
== END ==
PROVIDERS: PCP Emergency Medicine; Visit Provider Emergency Medicine
DX: Z79.899 Other long term (current) drug therapy (principal)
CPT/HCPCS: 80305

== ENCOUNTER → 2022-12-26 10:09 | Outpatient (CLI) | payer MEDICAID, SELFPAY | PROVIDERS: PCP Emergency Medicine; Visit Provider Emergency Medicine | DX: R73.09 Other abnormal glucose (principal) ==

== ENCOUNTER → 2022-12-27 11:00 | Outpatient (CLI) | payer MEDICAID, SELFPAY ==
[2022-12-26 18:46] LABS: Amphetamine/Metha Screen,Urine Negative ng/ml (<1000)
[2022-12-26 18:48] LABS: Barbiturates Screen,Urine Negative ng/ml (<200); Benzodiazepines Screen,Urine Negative ng/ml (<200)
[2022-12-26 18:49] LABS: Cannabinoid Screen,Urine Negative ng/ml (<50)
[2022-12-26 18:50] LABS: Cocaine Screen,Urine Negative ng/ml (<300); Methadone Screen,Urine Negative ng/ml (<300)
[2022-12-26 18:51] LABS: Opiate Screen,Urine Negative ng/ml (<300); Phencyclidine Screen,Urine Negative ng/ml (<25)
== END ==
PROVIDERS: PCP Emergency Medicine; Visit Provider Emergency Medicine
DX: Z79.899 Other long term (current) drug therapy (principal)
CPT/HCPCS: 80305

== ENCOUNTER → 2023-01-05 09:15 | Outpatient (CLI) | payer MEDICAID, SELFPAY ==
--- NOTE | 2023-01-05 09:15 | MR_ITS ---
PROCEDURE INFORMATION: Exam: MR Cervical Spine Without Contrast Exam date and time: 01/05/2023 9:17 AM Age: 57 years old Clinical indication: Neck pain; Additional info: Neck pain. Right sided neck pain with right shoulder pain. TECHNIQUE: Imaging protocol: Magnetic resonance imaging of the cervical spine without contrast. COMPARISON: MR CERVICAL SPINE WO CON 12/04/2019 1:53 PM FINDINGS: Bones/joints: There is preservation of vertebral alignment. There is preservation of vertebral body heights. No marrow replacing process. Spinal cord: Spinal cord is normal in signal characteristics. C2-C3: Shallow central disc protrusion noted. No significant spinal canal stenosis. There is no significant neural foraminal narrowing. C3-C4: No significant spinal canal stenosis. There is no significant neural foraminal narrowing. C4-C5: No significant spinal canal stenosis. There is no significant neural foraminal narrowing. C5-C6: Shallow central disc protrusion noted. No significant spinal canal stenosis. There is no significant neural foraminal narrowing. C6-C7: Shallow central disc protrusion noted. No significant spinal canal stenosis. There is no significant neural foraminal narrowing. C7-T1: No significant disc bulge or herniation. No severe spinal canal stenosis. No significant neural foraminal narrowing. Soft tissues: Unremarkable. Vasculature: There is loss of the flow void along the V2 segment of left vertebral artery. This can be either artifactual or represent a dissection in the appropriate clinical context. Other findings: Motion artifact does moderately limit the sensitivity of this examination. IMPRESSION: 1. Multilevel degenerative changes as evidenced by shallow central disc protrusions at multiple levels without significant spinal canal stenosis at any level. 2. There is loss of the flow void along the V2 segment of left vertebral artery. This can be either artifactual or represent a dissection in the appropriate clinical context. Further evaluation with CTA/MRA of the neck is recommended.
== END ==
PROVIDERS: PCP Emergency Medicine; Visit Provider Emergency Medicine
DX: M54.2 Cervicalgia (principal)
CPT/HCPCS: 72141; 76376

== ENCOUNTER → 2023-01-08 14:02 | Outpatient (CLI) | payer MEDICAID, SELFPAY ==
[2023-01-08 15:23] LABS: Basophils % 0.3 % (0.1-2.0); Eosinophils # 0.2 K/mm3 (0.0-0.4); Eosinophils % 2.4 % (0.1-12.0); Hematocrit 44.2 % (37.0-47.0); Hemoglobin 13.8 g/dL (12.2-16.2); Lymphocytes # 1.9 K/mm3 (0.7-4.5); Mean Corpuscular HGB Conc 31.2 g/dL (31.8-35.4); Mean Corpuscular Hemoglobin 31.5 pg (27.0-31.2); Mean Corpuscular Volume 100.9 fl (81-99); Mean Platelet Volume 10.4 fl (7.4-10.4); Monocytes # 0.4 K/mm3 (0.1-1.0); Monocytes % 3.5 % (1.7-9.3); Neutrophils # 7.4 K/mm3 (1.8-7.8); Neutrophils % 74.8 % (37.0-80.0); Platelet Count 180 K/mm3 (142-424); Red Blood Count 4.38 M/mm3 (4.20-5.40); Red Cell Distribution Width 14.2 % (11.5-17.5); White Blood Count 9.9 K/mm3 (4.8-10.8)
[2023-01-08 16:47] LABS: Alanine Aminotransferase 34 U/L (12-78); Albumin/Globulin Ratio 1.5 (1.1-1.8); Alkaline Phosphatase 130 U/L (38-126); Anion Gap 12.5 mEq/L (5-15); Aspartate Amino Transferase 24 U/L (14-36); Bilirubin,Total 0.3 mg/dl (0.2-1.3); Blood Urea Nitrogen 18 mg/dl (7-17); Calcium 8.9 mg/dl (8.4-10.2); Carbon Dioxide 25 mmol/L (22.0-30.0); Chloride 105 mmol/L (98-107); Chol/HDL Ratio 2.9 (1-3.5); Cholesterol 186 mg/dl (140-200); Estimated Glomerular Filt Rate 87 ml/min (>60); GFR (African American) 105 ML/MIN (>60); Globulin 2.6 g/dL (1.3-3.2); Glucose 140 mg/dl (74-100); HDL Cholesterol 64 mg/dl (40-60); Potassium 4.5 mmoL/L (3.5-5.1); Sodium 138 mmol/L (136-145); Total Protein,Serum 6.6 g/dl (6.3-8.2); Triglycerides 223 mg/dl (30-150); VLDL Cholesterol 45 mg/dL (0-40)
[2023-01-08 16:58] LABS: Direct LDL Cholesterol 64.74 mg/dL (100-129)
[2023-01-08 17:03] LABS: Free T4 (Free Thyroxine) 0.71 ng/dl (0.78-2.19)
[2023-01-08 17:05] LABS: 25-OH Vitamin D, Total 56.1 ng/mL (30-100)
[2023-01-08 17:13] LABS: Hemoglobin A1C 5.9 % (4.0-6.0)
[2023-01-08 17:19] LABS: Thyroid Stimulating Hormone 3.32 uIU/mL (0.465-4.68)
[2023-01-08 17:38] LABS: Vitamin B12 535 pg/mL (239-931)
== END ==
PROVIDERS: PCP Emergency Medicine; Visit Provider Emergency Medicine
DX: E03.9 Hypothyroidism, unspecified (principal); R53.83 Other fatigue; K59.00 Constipation, unspecified; E66.9 Obesity, unspecified; Z68.30 Body mass index [BMI] 30.0-30.9, adult; Z79.899 Other long term (current) drug therapy
CPT/HCPCS: 36415; 80053; 80061; 82306; 82607; 83036; 84439; 84443; 85025

== ENCOUNTER → 2023-01-09 09:29 | Outpatient (POV) | payer MEDICAID, SELFPAY | PROVIDERS: Visit Provider Specialist/Technologist | DX: Z00.00 Encounter for general adult medical examination without abnormal findings (principal) ==

== ENCOUNTER → 2023-01-24 10:09 | Outpatient (CLI) | payer MEDICAID, SELFPAY ==
--- NOTE | 2023-01-24 10:09 | CT_ITS ---
FINAL REPORT TECHNIQUE: NASCET technique utilized for stenosis evaluation. CLINICAL HISTORY: Abnormal mri of neck COMPARISON: MRI C-spine 01/05/2023 FINDINGS: Cervical vascularity is well opacified. Carotid bifurcations are widely patent. Vertebral arteries are patent, specifically the V2 segment of the left vertebral artery is widely patent. There are calcified granulomas in the bilateral upper lungs. Mild mucoperiosteal thickening in the left maxillary sinus. IMPRESSION: No evidence of significant carotid stenosis. Patent vertebral arteries. Reviewed, Interpreted and Dictated by King Winston MD Transcribed by Jeaneth Doran Authenticated and [facility]
== END ==
PROVIDERS: PCP Emergency Medicine; Visit Provider Emergency Medicine
DX: M50.20 Other cervical disc displacement, unspecified cervical region (principal); M51.36 Other intervertebral disc degeneration, lumbar region
CPT/HCPCS: 70498; Q9967

== ENCOUNTER → 2023-02-22 10:02 | Outpatient (CLI) | payer MEDICAID, SELFPAY ==
[2023-02-22 19:29] LABS: Amphetamine/Metha Screen,Urine Negative ng/ml (<1000); Barbiturates Screen,Urine Negative ng/ml (<200)
[2023-02-22 19:30] LABS: Benzodiazepines Screen,Urine Positive ng/ml (<200)
[2023-02-22 19:31] LABS: Cannabinoid Screen,Urine Negative ng/ml (<50); Cocaine Screen,Urine Negative ng/ml (<300)
[2023-02-22 19:32] LABS: Methadone Screen,Urine Negative ng/ml (<300)
[2023-02-22 19:33] LABS: Opiate Screen,Urine Negative ng/ml (<300); Phencyclidine Screen,Urine Negative ng/ml (<25)
== END ==
PROVIDERS: PCP Emergency Medicine; Visit Provider Emergency Medicine
DX: M54.12 Radiculopathy, cervical region (principal)
CPT/HCPCS: 80305

== ENCOUNTER → 2023-04-22 13:21 | Outpatient (CLI) | payer MEDICAID, SELFPAY ==
[2023-04-22 14:45] LABS: Amphetamine/Metha Screen,Urine Negative ng/ml (<1000)
[2023-04-22 14:47] LABS: Cannabinoid Screen,Urine Negative ng/ml (<50)
[2023-04-22 14:48] LABS: Methadone Screen,Urine Negative ng/ml (<300)
[2023-04-22 15:15] LABS: Barbiturates Screen,Urine Negative ng/ml (<200); Benzodiazepines Screen,Urine Negative ng/ml (<200)
[2023-04-22 16:21] LABS: Cocaine Screen,Urine Negative ng/ml (<300); Phencyclidine Screen,Urine Negative ng/ml (<25)
[2023-04-22 16:22] LABS: Opiate Screen,Urine Negative ng/ml (<300)
== END ==
PROVIDERS: PCP Emergency Medicine; Visit Provider Emergency Medicine
DX: Z79.899 Other long term (current) drug therapy (principal)
CPT/HCPCS: 80305

== ENCOUNTER → 2023-07-03 15:48 | Outpatient (CLI) | payer MEDICARE, MEDICAID, SELFPAY ==
--- NOTE | 2023-07-03 15:49 | MM_ITS ---
PROCEDURE INFORMATION: Exam: MG Bilateral Screening 3D Mammography Exam date and time: 07/03/2023 3:44 PM Age: 58 years old Clinical indication: Screening examination TECHNIQUE: Imaging protocol: Bilateral Screening tomosynthesis and 2D mammography including computer-aided detection (CAD) when performed. COMPARISON: 1. MG MM DIG SCREENING MAMM BI W/CAD 10/11/2021 1:10 PM 2. MG MM DIG SCREENING MAMM BI W/CAD 07/28/2020 9:07 AM FINDINGS: MAMMOGRAPHY: Breast composition: There are scattered areas of fibroglandular density. Mass: None. Architectural distortion: No new or suspicious distortion Calcifications: No suspicious calcifications. Asymmetric density: None. Skin thickening: None. Axillary adenopathy: None. IMPRESSION: No mammographic evidence of malignancy. Annual screening is recommended unless otherwise clinically indicated. ASSESSMENT: BI-RADS Category 1: Negative
== END ==
PROVIDERS: PCP Emergency Medicine; Visit Provider Emergency Medicine
DX: Z12.31 Encounter for screening mammogram for malignant neoplasm of breast (principal)
CPT/HCPCS: 77063; 77067

== ENCOUNTER → 2023-07-16 16:58 | Outpatient (CLI) | payer MEDICARE, MEDICAID, SELFPAY ==
[2023-07-16 17:45] LABS: Amphetamine/Metha Screen,Urine Negative ng/ml (<1000)
[2023-07-16 17:46] LABS: Barbiturates Screen,Urine Negative ng/ml (<200)
[2023-07-16 17:47] LABS: Cannabinoid Screen,Urine Negative ng/ml (<50)
[2023-07-16 19:35] LABS: Benzodiazepines Screen,Urine Negative ng/ml (<200); Methadone Screen,Urine Negative ng/ml (<300)
[2023-07-16 19:36] LABS: Cocaine Screen,Urine Negative ng/ml (<300)
[2023-07-16 19:37] LABS: Opiate Screen,Urine Positive ng/ml (<300); Phencyclidine Screen,Urine Negative ng/ml (<25)
== END ==
PROVIDERS: PCP Emergency Medicine; Visit Provider Emergency Medicine
DX: Z79.899 Other long term (current) drug therapy (principal)
CPT/HCPCS: 80305

== ENCOUNTER → 2023-09-11 23:17 | Outpatient (CLI) | payer MEDICARE, MEDICAID, SELFPAY ==
[2023-09-11 18:48] LABS: Basophils # 0.1 K/mm3 (0-0.2); Basophils % 0.7 % (0.1-2.0); Eosinophils # 0.5 K/mm3 (0.0-0.4); Eosinophils % 7.1 % (0.1-12.0); Hematocrit 46.6 % (37.0-47.0); Hemoglobin 15.5 g/dL (12.2-16.2); Lymphocytes # 1.8 K/mm3 (0.7-4.5); Mean Corpuscular HGB Conc 33.1 g/dL (31.8-35.4); Mean Corpuscular Hemoglobin 33.1 pg (27.0-31.2); Mean Corpuscular Volume 99.8 fl (81-99); Mean Platelet Volume 10.8 fl (7.4-10.4); Monocytes # 0.4 K/mm3 (0.1-1.0); Monocytes % 5.2 % (1.7-9.3); Neutrophils # 4.9 K/mm3 (1.8-7.8); Platelet Count 148 K/mm3 (142-424); Red Blood Count 4.67 M/mm3 (4.20-5.40); Red Cell Distribution Width 14.6 % (11.5-17.5); White Blood Count 7.6 K/mm3 (4.8-10.8)
[2023-09-11 19:09] LABS: Chloride 104 mmol/L (98-107); Potassium 4.1 mmoL/L (3.5-5.1); Sodium 140 mmol/L (136-145)
[2023-09-11 19:12] LABS: Alanine Aminotransferase 25 U/L (12-78); Albumin Level 4.6 g/dl (3.5-5.0); Albumin/Globulin Ratio 1.5 (1.1-1.8); Alkaline Phosphatase 152 U/L (38-126); Anion Gap 13.1 mEq/L (5-15); Aspartate Amino Transferase 27 U/L (14-36); Bilirubin,Total 0.4 mg/dl (0.2-1.3); Blood Urea Nitrogen 18 mg/dl (7-17); Calcium 9.3 mg/dl (8.4-10.2); Carbon Dioxide 27 mmol/L (22.0-30.0); Estimated Glomerular Filt Rate 65 ml/min (>60); GFR (African American) 78 ML/MIN (>60); Glucose 91 mg/dl (74-100); Hemoglobin A1C 5.9 % (4.0-6.0); Total Protein,Serum 7.6 g/dl (6.3-8.2)
[2023-09-11 21:10] LABS: Creatinine,Urine Random 228 mg/dL (Not Estab.)
[2023-09-11 21:11] LABS: Microalbumin/Creatinine Ratio 3.8
[2023-09-11 21:13] LABS: Benzodiazepines Screen,Urine Negative ng/ml (<200)
[2023-09-11 21:14] LABS: Amphetamine/Metha Screen,Urine Negative ng/ml (<1000); Barbiturates Screen,Urine Negative ng/ml (<200)
[2023-09-11 21:15] LABS: Cannabinoid Screen,Urine Negative ng/ml (<50); Methadone Screen,Urine Negative ng/ml (<300)
[2023-09-11 21:16] LABS: Cocaine Screen,Urine Negative ng/ml (<300)
[2023-09-11 21:17] LABS: Opiate Screen,Urine Negative ng/ml (<300)
[2023-09-11 21:18] LABS: Phencyclidine Screen,Urine Negative ng/ml (<25)
== END ==
LOC: LAB.DROPOF 23:19
PROVIDERS: PCP Internal Medicine; Visit Provider Internal Medicine
DX: R53.83 Other fatigue (principal); E03.9 Hypothyroidism, unspecified; E11.9 Type 2 diabetes mellitus without complications; Z29.9 Encounter for prophylactic measures, unspecified; M54.2 Cervicalgia; Z79.899 Other long term (current) drug therapy; Z79.84 Long term (current) use of oral hypoglycemic drugs
CPT/HCPCS: 80053; 80307; 82043; 82570; 83036; 85025

== ENCOUNTER 2023-10-14 12:31 | Outpatient (CLI) | payer MEDICARE, MEDICAID, SELFPAY ==
[2023-10-14 19:01] LABS: Amphetamine/Metha Screen,Urine Negative ng/ml (<1000); Barbiturates Screen,Urine Negative ng/ml (<200); Benzodiazepines Screen,Urine Negative ng/ml (<200); Cannabinoid Screen,Urine Negative ng/ml (<50); Cocaine Screen,Urine Negative ng/ml (<300); Methadone Screen,Urine Negative ng/ml (<300); Opiate Screen,Urine Positive ng/ml (<300); Phencyclidine Screen,Urine Negative ng/ml (<25)
[2023-10-20 14:34] LABS: Alprazolam Negative (Cutoff=100); Benzodiazepines Positive ng/mL (Cutoff=100); Clonazepam Positive (.); Clonazepam Confirm 384 ng/mL (Cutoff=100); Flurazepam Negative (Cutoff=100); Lorazepam Negative (Cutoff=100); Midazolam Negative (Cutoff=100); Temazepam Negative (Cutoff=100); Triazolam Negative (Cutoff=100)
== END 2023-10-14 23:59 ==
LOC: LAB.DROPOF 12:31
PROVIDERS: PCP Family Medicine; Visit Provider Family Medicine
DX: Z79.899 Other long term (current) drug therapy (principal)
CPT/HCPCS: 80307; 80346

== ENCOUNTER 2023-10-18 16:18 | Emergency (ER) | payer MEDICARE, MEDICAID, SELFPAY ==
[2023-10-18 16:19] VITALS: BP 168/129; PULSE 97; RESP 20; TEMP 36.7; O2SAT 96; BMI 31.2
[2023-10-18 16:31] VITALS: BP 140/80; PULSE 80; O2SAT 98
[2023-10-18] MEDS: TET/DIPHTH/PERT-ADULT 0.5ML SYRINGE 0.5 ML IM (16:51)
[2023-10-18] MEDS: ONDANSETRON 4MG ODT 4 MG SL (16:51)
[2023-10-18] MEDS: cephALEXin 500MG CAPSULE 500 MG PO (16:51)
[2023-10-18] MEDS: ACETAMINOPHEN 500MG TAB 1000 MG PO (16:52)
[2023-10-18] MEDS: OXYCODONE 5MG IMMEDIATE RELEASE TABLET 10 MG PO (16:52)
[2023-10-18] MEDS: BACITRACIN ZINC OINT 30GM TUBE TP (16:52)
--- NOTE | 2023-10-18 17:00 | PC.NURSE ---
placed bacitracin on pt burn noted on left foot and toes, vasline guaze applied and wrapped with guaze. pt tolerated well
[2023-10-18] MEDS: MORPHINE 2MG/ML SYRINGE 4 MG IM (17:12)
[2023-10-18] MEDS: HYDROMORPHONE 2MG/ML SYRINGE 2 MG IM (17:45)
--- NOTE | 2023-10-18 17:51 | PC.NURSE ---
Dr Goyal speaking with Dr Ba with plastics
[2023-10-18 18:02] VITALS: BP 140/80; PULSE 80; RESP 20; TEMP 36.7; O2SAT 98
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
== END 2023-10-18 18:03 | disposition home or self-care (01) ==
PROVIDERS: Emergency Provider Emergency Medicine; PCP Internal Medicine
DX: T25.222A Burn of second degree of left foot, initial encounter (principal); J44.9 Chronic obstructive pulmonary disease, unspecified; E11.9 Type 2 diabetes mellitus without complications; J45.40 Moderate persistent asthma, uncomplicated; I10 Essential (primary) hypertension; E03.9 Hypothyroidism, unspecified; F17.210 Nicotine dependence, cigarettes, uncomplicated; X12.XXXA Contact with other hot fluids, initial encounter
CPT/HCPCS: 90471; 90715; 96372; 99283

== ENCOUNTER 2023-12-12 18:53 | Outpatient (CLI) | payer MEDICARE, MEDICAID, SELFPAY ==
[2023-12-12 19:17] LABS: Hemoglobin A1C 5.7 % (4.0-6.0)
[2023-12-12 19:38] LABS: Cholesterol 214 mg/dl (140-200); HDL Cholesterol 43 mg/dl (40-60); Triglycerides 315 mg/dl (30-150); VLDL Cholesterol 63 mg/dL (0-40)
[2023-12-12 19:50] LABS: Direct LDL Cholesterol 76.17 mg/dL (100-129)
== END 2023-12-12 23:59 ==
PROVIDERS: PCP Internal Medicine; Visit Provider Internal Medicine
DX: E11.9 Type 2 diabetes mellitus without complications (principal); E78.5 Hyperlipidemia, unspecified; Z79.84 Long term (current) use of oral hypoglycemic drugs; Z79.85 Long-term (current) use of injectable non-insulin antidiabetic drugs
CPT/HCPCS: 80061; 83036

== ENCOUNTER 2024-04-09 11:09 | Outpatient (CLI) | payer MEDICARE, MEDICAID, SELFPAY ==
--- NOTE | 2024-04-09 11:14 | XR_ITS ---
FINAL REPORT CLINICAL HISTORY: soa COMPARISON: None FINDINGS: PA and lateral views of the chest are obtained. There is no prior exam for comparison. The cardiac and mediastinal silhouettes are within normal limits. The lungs are clear. There is no pleural effusion, pneumothorax, or acute osseous abnormality. IMPRESSION: No radiographic evidence of acute cardiac or pulmonary disease. Reviewed, Interpreted and Dictated by Kathy Kidd MD Transcribed by Evelyn Lowry Authenticated and . [facility]
== END 2024-04-09 23:59 | disposition home or self-care (01) ==
LOC: RAD 11:11
PROVIDERS: PCP Internal Medicine; Visit Provider Internal Medicine
DX: R06.02 Shortness of breath (principal)
CPT/HCPCS: 71046

== ENCOUNTER 2024-11-26 15:00 | Outpatient (CLI) | payer MEDICARE, MEDICAID, SELFPAY ==
[2024-11-26 19:52] LABS: Basophils % 0.7 % (0.1-2.0); Eosinophils # 0.3 K/mm3 (0.0-0.4); Eosinophils % 4.1 % (0.1-12.0); Hematocrit 42.7 % (37.0-47.0); Hemoglobin 13.6 g/dL (12.2-16.2); Lymphocytes # 1.4 K/mm3 (0.7-4.5); Lymphocytes % 23.4 % (10-50); Mean Corpuscular HGB Conc 31.9 g/dL (31.8-35.4); Mean Corpuscular Hemoglobin 31.3 pg (27.0-31.2); Mean Corpuscular Volume 98.4 fl (81-99); Monocytes # 0.4 K/mm3 (0.1-1.0); Monocytes % 5.7 % (1.7-9.3); Neutrophils % 65.8 % (37.0-80.0); Platelet Count 126 K/mm3 (142-424); Red Blood Count 4.34 M/mm3 (4.20-5.40); Red Cell Distribution Width 14.6 % (11.5-17.5); White Blood Count 6.1 K/mm3 (4.8-10.8)
[2024-11-26 19:56] LABS: Alanine Aminotransferase 63 U/L (12-78); Albumin Level 4.3 g/dl (3.5-5.0); Albumin/Globulin Ratio 1.7 (1.1-1.8); Alkaline Phosphatase 176 U/L (38-126); Anion Gap 10.2 mEq/L (5-15); Aspartate Amino Transferase 30 U/L (14-36); Bilirubin,Total 0.2 mg/dl (0.2-1.3); Blood Urea Nitrogen 19 mg/dl (7-17); Calcium 9.5 mg/dl (8.4-10.2); Carbon Dioxide 26 mmol/L (22.0-30.0); Chloride 108 mmol/L (98-107); Chol/HDL Ratio 4.1 (1-3.5); Cholesterol 213 mg/dl (140-200); Estimated Glomerular Filt Rate 103 ml/min (>60); GFR (African American) 125 ML/MIN (>60); Globulin 2.5 g/dL (1.3-3.2); Glucose 100 mg/dl (74-100); HDL Cholesterol 52 mg/dl (40-60); Potassium 4.2 mmoL/L (3.5-5.1); Sodium 140 mmol/L (136-145); Total Protein,Serum 6.8 g/dl (6.3-8.2); Triglycerides 217 mg/dl (30-150); VLDL Cholesterol 43 mg/dL (0-40)
[2024-11-26 20:07] LABS: Direct LDL Cholesterol 97.86 mg/dL (100-129)
[2024-11-26 20:12] LABS: 25-OH Vitamin D, Total 46.5 ng/mL (30-100)
[2024-11-26 20:13] LABS: T4 (Thyroxine) 7.9 ug/dl (5.53-11.0)
[2024-11-26 20:22] LABS: Creatinine,Urine Random 112 mg/dL (Not Estab.)
[2024-11-26 20:24] LABS: Microalbumin/Creatinine Ratio 21.2
[2024-11-26 20:27] LABS: Thyroid Stimulating Hormone 3.22 uIU/mL (0.465-4.68)
[2024-11-26 20:46] LABS: Vitamin B12 326 pg/mL (239-931)
[2024-11-26 21:13] LABS: Folate 5.74 ng/mL
[2024-11-26 21:45] LABS: Iron 90 ug/dL (37-170)
[2024-11-26 21:55] LABS: Total Iron Binding Capacity 382 ug/dL (265-497)
[2024-11-26 22:01] LABS: Hemoglobin A1C 5.4 % (4.0-6.0)
[2024-11-26 22:22] LABS: Ferritin 57.2 ng/ml (11.1-264)
[2024-11-28 09:14] LABS: Hep A Ab, IgM Negative (Negative); Hep A Ab, Total Positive (Negative); Hep B Core Ab, Total Negative (Negative); Hep B Surface Ab, Qual Non Reactive (.); Hepatitis B Surface Antigen Negative (Negative)
[2024-12-01 11:12] LABS: ALT (SGPT) P5P 58 IU/L (0-40); Alpha 2-Macroglobulins, Qn 284 mg/dL (110-276); Apolipoprotein A-1 167 mg/dL (116-209); Bilirubin, Total 0.1 mg/dL (0.0-1.2); Fibrosis Score 0.25 (0.00-0.21); Fibrosis Stage F0-F1 (.); GGT 366 IU/L (0-60); Haptoglobin 149 mg/dL (33-346); Necroinflammat Activity Grade A1-Minimal activity (.); Necroinflammat Activity Score 0.33 (0.00-0.17)
== END 2024-11-26 23:59 | disposition home or self-care (01) ==
LOC: LAB.DROPOF 11-30 15:01
PROVIDERS: PCP Nurse Practitioner Family; Visit Provider Nurse Practitioner Family
DX: D69.41 Evans syndrome (principal); E11.9 Type 2 diabetes mellitus without complications; Z11.59 Encounter for screening for other viral diseases
CPT/HCPCS: 80053; 80061; 81596; 82043; 82247; 82306; 82570; 82607; 82728; 82746; 82977; 83036; 83540; 83550; 83883; 84436; 84443; 84460; 85025; 86704; 86706; 86708; 86709; 87340; 87902

== ENCOUNTER 2025-06-21 08:51 | Day surgery (SDC) | payer MEDICARE, MEDICAID, SELFPAY ==
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
[2025-06-18 14:15] VITALS: BMI 25.7
--- NOTE | 2025-06-21 06:57 | HMH.PROCNOTE ---
[facility] Procedure Note Date: 06/21/25 Time: 10:55 Procedure Note:: Colonoscopy Procedure Report: Colonoscopy with cold snare polypectomy Endoscopist: David Giron II, MD Referring physician: JUNI Moore Date of Procedure: June 21, 2025 Equipment: Olympus [id number] adult colonoscope Sedation: MAC sedation Indication: Mrs. Corrales is a 60-year-old female who is here for screening colonoscopy. The patient does have longstanding IBS constipation. She does state that her paternal grandmother, several maternal uncles and maternal grandfather had colon cancer. The patient reports no rectal bleeding or abdominal pain. The patient did have a colonoscopy (Da Bermeo M.D.) in July 2020 and had 5 colon polyps (tubular adenomas x 5) which were removed. Some of these were described as large and lobulated. The examination is deemed medically necessary for screening/surveillance colonoscopy. Procedure: Prior to the procedure, a history and physical exam was performed, and patient's medications and allergies were reviewed. The risks, benefits and alternatives of the sedation and procedure were discussed with the patient. All questions were answered and informed consent was obtained. The patient was brought to the procedure room. Patient identification and proposed procedure were verified by the physician and the nurse. The patient was placed in a left lateral decubitus position and the scope was passed under direct vision. Throughout the procedure, the patient's blood pressure, pulse, and oxygen saturations were monitored continuously. The colonoscopy was accomplished without difficulty. The patient tolerated the procedure well. Findings: On digital rectal examination there was normal rectal tone. There were no external hemorrhoids. The colonoscope was introduced through the anal canal to the rectum and advanced to the cecum. The ileocecal valve and appendiceal orifice were identified. The scope was advanced a short distance into the ileum which appeared grossly normal. The scope was then withdrawn into the colon. There were 7 colon polyps (cecum x 2 (3 and 5 mm), ascending x 1 (4 mm), transverse x 1 (4 mm), descending x 1 (7 mm) and rectosigmoid x 2 (5 and 5 mm)). These were all removed via cold snare polypectomy. There was some spot ink tattoo adjacent to the rectosigmoid polyps and there were a number of hyperplastic appearing polyps in the rectosigmoid and rectum. The remaining cecum, ascending, transverse, descending, sigmoid and rectum were grossly normal. There were no other mucosal abnormalities identified. Upon retroflexion within the rectum there were grade 1-2 internal hemorrhoids. The preparation was excellent throughout with [place] Preparation Score of 9. The cecal time was 15 minutes. Impression: 1. Colonic polyps x 7 2. Grade 1-2 internal hemorrhoids Plan: I will follow-up the polyp histology and recommend repeat screening/surveillance colonoscopy again in 3 years based upon the number of adenomatous polyps. I would encourage a fiber bowel regimen on a long-term daily maintenance basis.
[2025-06-21] MEDS: LACTATED RINGERS 1000ML 1,000 ML 50 ML IV (09:11)
[2025-06-21 09:20] VITALS: BP 158/91; PULSE 76; RESP 16; TEMP 36.3; O2SAT 97
[2025-06-21 09:22] LABS: POC Glucose,Bedside 110 gm/dL (70-110)
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
[2025-06-21 10:58] VITALS: BP 97/64; PULSE 67; RESP 16; TEMP 36.1; O2SAT 99
[2025-06-21 11:08] VITALS: BP 106/66; PULSE 68; RESP 17; TEMP 36.1; O2SAT 99
[2025-06-21 11:18] VITALS: BP 136/83; PULSE 73; RESP 17; TEMP 36.1; O2SAT 99
[2025-06-21 11:28] VITALS: BP 133/76; PULSE 64; RESP 18; TEMP 36.1; O2SAT 100
== END 2025-06-21 11:28 | disposition home or self-care (01) ==
PROVIDERS: PCP Nurse Practitioner Family; Visit Provider Internal Medicine Gastroenterology
PROC: 0DJ08ZZ Inspection of Upper Intestinal Tract, Via Natural or Artificial Opening Endoscopic (ICD-10-PCS; CPT 45378; principal; 2025-06-21 10:30)
DX: Z12.11 Encounter for screening for malignant neoplasm of colon (principal); K58.1 Irritable bowel syndrome with constipation; K64.1 Second degree hemorrhoids; K29.50 Unspecified chronic gastritis without bleeding; D12.2 Benign neoplasm of ascending colon; D12.0 Benign neoplasm of cecum; D12.4 Benign neoplasm of descending colon; D12.3 Benign neoplasm of transverse colon; K63.5 Polyp of colon; K21.9 Gastro-esophageal reflux disease without esophagitis; K22.4 Dyskinesia of esophagus; K44.9 Diaphragmatic hernia without obstruction or gangrene; Z86.0101 Personal history of adenomatous and serrated colon polyps; Z80.0 Family history of malignant neoplasm of digestive organs; J44.89 Other specified chronic obstructive pulmonary disease; J45.40 Moderate persistent asthma, uncomplicated; E03.9 Hypothyroidism, unspecified; I10 Essential (primary) hypertension; E11.9 Type 2 diabetes mellitus without complications; F41.9 Anxiety disorder, unspecified; F32.A Depression, unspecified; F17.210 Nicotine dependence, cigarettes, uncomplicated; Z79.84 Long term (current) use of oral hypoglycemic drugs; Z79.890 Hormone replacement therapy; Z79.85 Long-term (current) use of injectable non-insulin antidiabetic drugs; Z79.899 Other long term (current) drug therapy; Z79.51 Long term (current) use of inhaled steroids; Z88.6 Allergy status to analgesic agent; Z88.2 Allergy status to sulfonamides; Z88.8 Allergy status to other drugs, medicaments and biological substances
CPT/HCPCS: 43239; 43249; 45385; 82657; 82962; C1726; J2003; J2704; J7120

== ENCOUNTER 2025-07-14 13:51 | Outpatient (CLI) | payer MEDICARE, MEDICAID, SELFPAY ==
--- NOTE | 2025-07-14 14:00 | MM_ITS ---
PROCEDURE INFORMATION: Exam: MG Bilateral Screening 3D Mammography Exam date and time: 07/14/2025 1:51 PM Age: 60 years old Clinical indication: Screening exam. TECHNIQUE: Imaging protocol: Bilateral Screening tomosynthesis and 2D mammography including computer-aided detection (CAD) when performed. COMPARISON: 1. MG MM DIG SCREENING MAMM BI W/CAD 07/03/2023 3:44 PM 2. MG MM DIG SCREENING MAMM BI W/CAD 10/11/2021 1:10 PM FINDINGS: MAMMOGRAPHY: Breast composition: There are scattered areas of fibroglandular density. Mass: No suspicious masses. Architectural distortion: None. Calcifications: No suspicious calcifications. Asymmetric density: None. Skin thickening: None. Axillary adenopathy: None. IMPRESSION: No mammographic evidence of malignancy. Annual screening is recommended unless otherwise clinically indicated. ASSESSMENT: BI-RADS Category 1: Negative.
--- OUTSIDE RECORDS SUMMARY | 2025-07-14 14:35 | XMS_ITS | Clinical Summary ---
Author Organization [facility] Address [address] [place] [phone] Phone Care Team Providers Care Supervisor [employer] Name Role Phone Coleman MORENO, Price Unavailable [phone] Conditions or Problems Problem Name Problem Code Onset Date Status Entry Date Provider Comment Standard Description Annotate MUSCLE CRAMPS 92180434 (SNOMED CT) 06/08 Inactive 06/08 Corrie Horne APRN Cramp History of BACK PAIN, CHRONIC 633581050 (SNOMED CT) 12/02 Active 12/02 Corrie Horne APRN Backache HEPATITIS C NOS B19.20 (ICD-10-CM ) 10/29 Active 10/29 Suzette Deepika ACCOUNTING METHODS ANALYST Unspecified viral hepatitis C without hepatic coma COPD 85619961 (SNOMED CT) 10/29 Active 10/29 Suzette Deepika ACCOUNTING METHODS ANALYST Chronic obstructive pulmonary disease VITAMIN D DEFICIENCY 53134145 (SNOMED CT) 10/29 Active 10/29 Suzette Deepika ACCOUNTING METHODS ANALYST Vitamin D deficiency B12 DEFICIENCY 604324268 (SNOMED CT) 10/29 Active 10/29 Suzette Deepika ACCOUNTING METHODS ANALYST Cobalamin deficiency ANXIETY DEPRESSION 305549868 (SNOMED CT) 10/29 Active 10/29 Suzette Deepika ACCOUNTING METHODS ANALYST Mixed anxiety and depressive disorder HYPERTENSION 94177155 (SNOMED CT) 10/29 Active 10/29 Suzette Deepika ACCOUNTING METHODS ANALYST Hypertensive disorder Medications Medication Instructions Start Date Stop Date Generic Name [facility] Provider METOPROLOL TARTRATE 50 MG TABS TAKE 1 TABLET BY MOUTH 2 TIMES A DAY METOPROLOL TARTRATE [id number] Corrie Horne APRN AMITRIPTYLINE HCL 50 MG TABS TAKE 1-2 TABLETS AT BEDTIME AMITRIPTYLINE HCL 50807604400 Corrie Horne APRN CITALOPRAM HYDROBROMIDE 40 MG TABS TAKE 1 TABLET BY MOUTH ONCE A DAY CITALOPRAM HYDROBROMIDE 51882934403 Corrie Horne APRN LISINOPRIL-HYDROC HLOROTHIAZIDE 20-25 MG TABS TAKE 1 TABLET BY MOUTH 1 TIME A DAY LISINOPRIL-HYDRO CHLOROTHIAZIDE 20330680771 Corrie Horne APRN GABAPENTIN 600 MG TABS TAKE 1 BY MOUTH 3 TIMES A DAY GABAPENTIN 96792216055 Corrie Horne APRN VENTOLIN HFA 108 (90 Base) MCG/ACT AERS TAKE 2 INHALATIONS EVERY 4 HOURS NEEDED FOR WHEEZING ALBUTEROL SULFATE 25094282593 Corrie Horne APRN BD DISP NEEDLES 20G X 1 USE 1 NEEDLE MONTHLY TO INJECT B12 NEEDLE (DISP) 36228019261 Corrie Horne APRN CYANOCOBALAMIN 1000 MCG/ML SOLN INJECT 1ML IM ONCE MONTHLY CYANOCOBALAMIN 07002874920 Corrie Horne APRN AMITRIPTYLINE HCL 50 MG TABS TAKE 1-2 TABLETS AT BEDTIME AMITRIPTYLINE HCL 89938662076 Corrie Horne APRN METOPROLOL TARTRATE 50 MG TABS TAKE 1 TABLET BY MOUTH 2 TIMES A DAY METOPROLOL TARTRATE 07761625703 Corrie Horne APRN GABAPENTIN 300 MG CAPS TAKE 1 CAP TID GABAPENTIN 49911441548 Corrie Horne APRN CITALOPRAM HYDROBROMIDE 40 MG TABS TAKE 1 TABLET BY MOUTH ONCE A DAY CITALOPRAM HYDROBROMIDE 75340611573 Corrie Horne APRN METOPROLOL TARTRATE 50 MG TABS TAKE 1 TABLET BY MOUTH 2 TIMES A DAY METOPROLOL TARTRATE 22855151444 Suzette Deepika ACCOUNTING METHODS ANALYST GABAPENTIN 300 MG CAPS 1 pill twice a day GABAPENTIN 35214480754 Suzette Deepika ACCOUNTING METHODS ANALYST NADOLOL 40 MG TABS TAKE 2 BY MOUTH EACH DAY NADOLOL 73117171621 Suzette Deepika ACCOUNTING METHODS ANALYST LISINOPRIL-HYDROC HLOROTHIAZIDE 20-25 MG TABS TAKE 1 TABLET BY MOUTH 1 TIME A DAY LISINOPRIL-HYDRO CHLOROTHIAZIDE 80066540909 Corrie Horne ACCOUNTING METHODS ANALYST CITALOPRAM HYDROBROMIDE 20 MG TABS TAKE 1 TABLET BY MOUTH 1 TIME A DAY CITALOPRAM HYDROBROMIDE 89477710388 Suzette Deepika ACCOUNTING METHODS ANALYST AMITRIPTYLINE HCL 50 MG TABS 1 tablet by tablet twice daily AMITRIPTYLINE HCL 25798757198 Suzette Deepika ACCOUNTING METHODS ANALYST NADOLOL-BENDROFLU METHIAZIDE 40-5 MG ORAL TABLET 2 by mouth daily NADOLOL-BENDROFL UMETHIAZIDE 77258599742 Suzette Deepika ACCOUNTING METHODS ANALYST Medications Administered No information available. Allergies, Adverse Reactions, Alerts Allergy Name Reaction Description Start Date Severity Statu s Provider SULFA Critical Active Suzette Albaro nor ACCOUNTING METHODS ANALYST FLAGYL Critical Active Suzette Albaro nor ACCOUNTING METHODS ANALYST TETRACYCLINE Critical Active Suzette Deepika ACCOUNTING METHODS ANALYST AZITHROMYCIN Critical Active Suzette Deepika ACCOUNTING METHODS ANALYST Results Date Name Value Unit Range Flag Description Lab Report: CBC (INCLUDES DI FF/PLT), COMPREHENSIVE METABOLIC PANEL, LIPI ... VIT D 25-OH 32 ng/mL 30-100 N 25-Hydrox ycalcifero l [Mass/volume] in Serum or Plasma TSHREFLX FT4 3.50 m[iU]/L N TSH (thy roid stimulating hormone) with reflex FT4 Lab Report: CBC (INCLUDES DI FF/PLT), COMPREHENSIVE METABOLIC PANEL, CREA ... VIT D 1,25OH 58 18-72 vitamin D 1,25-dihydroxy, serum B12 421 pg/mL 200-1100 N Cobalamin (V itamin B12) [Mass/volume] in Serum or Plasma CHOL/HDL % 5.0 (calc) < OR = 5.0 N cholesterol/HDL ratio, serum, percent LDL 122 MG/DL (CALC) mg/dL <130 N Cholesterol in L DL [Mass/volume] in Serum or Plasma - mg/dL TRIGLYCRDES 167 mg/dL <150 H Triglycer alba [Mass/volume] in Serum or Plasma - mg/dL HDL 39 mg/dL >OR = 46 L Cholesterol in HDL [Mass/volume] in Serum or Plasma - mg/dL CHOLESTEROL 194 mg/dL 125-200 N Cholester ol [Mass/volume] in Serum or Plasma - mg/dL CPK 56 U/L 29-143 N Creatine mikey se [Enzymatic activity/volume] in Serum or Plasma SGPT (ALT) 36 U/L 6-29 H Alanine aminotransferase [Enzymatic activity/volume] in Serum or Plasma SGOT (AST) 60 U/L 10-35 H Aspartate aminotransferase [Enzymatic activity/volume] in Serum or Plasma ALK PHOS 101 U/L 33-115 N Alkaline phosphatase [Enzymatic activity/volume] in Blood BILI TOTAL 0.4 mg/dL 0.2-1.2 N Bilirubin. total [Mass/volume] in Serum or Plasma A/G RATIO 1.5 (calc) 1.0-2.5 N Albumin/ Globulin [Mass Ratio] in Serum or Plasma GLOBULIN TOT 2.7 G/DL (CALC) g/dL 1.9-3.7 N Globulin [Mass/volume] in Serum ALBUMIN EOP 4.1 g/dL 3.6-5.1 N Albumin [Mass/volume] in Serum or Plasma by Electrophoresis PROTEIN, TOT 6.8 g/dL 6.1-8.1 N Protein [Mass/volume] in Serum or Plasma CALCIUM 9.1 mg/dL 8.6-10.2 N Calcium [Moles/volume] in Serum or Plasma CO2 25 mmol/L 19-30 N Carbon dioxid e, total [Moles/volume] in Venous blood CHLORIDE BLD 104 mmol/L 98-110 N chloride , blood POTASSIUM 4.6 mmol/L 3.5-5.3 N Potassium [Moles/volume] in Serum or Plasma SODIUM 138 mmol/L 135-146 N Sodium [Moles/volume] in Serum or Plasma BUN/CREAT NOT APPLICABLE (calc) 6-22 Urea nitrogen/Creatinine [Mass Ratio] in Serum or Plasma EGFR 93 mL/min/1 .73m2 >OR = 60 N Glomerular filtration rate/1.73 sq M.predicted [Volume Rate/Area] in Serum, Plasma or Blood by Creatinine-based formula (MDRD) CREATININE 0.77 mg/dL 0.50-1.10 N Creatini ne [Mass/volume] in Serum or Plasma BUN 14 mg/dL 7-25 N Urea nitrogen [Mass/volume] in Serum or Plasma BG RANDOM 108 mg/dL 65-99 H Glucose [Mass/volume] in Blood BASO % MANU 0.6 % N basophils as percent of blood leukocytes, manual count EOS % MANU 5.1 % N eosinophil s as percent of blood leukocytes, manual count MONOCYTE % 5.5 % N Monocytes/ 100 leukocytes in Blood by Automated count LYMPH% P BLD 15.8 % N lymphocy venessa as percent of blood leukocytes PMN % 73.0 % N Neutrophils/1 00 leukocytes in Blood by Automated count ABS BASOS 43 {Cells}/ uL 0-200 N Basophils [#/volume] in Blood ABS EOS 362 {Cells}/ uL 15-500 N Eosinophils [#/volume] in Blood ABS MONOS 391 {Cells}/ uL 200-950 N Monocytes [#/volume] in Blood ABSLYMPHCT 1122 {Cells}/ uL 850-3900 N Lymphocytes [#/volume] in Blood ABS NEUTROPH 5183 CELLS/UL 10*3/uL 4450-8969 N Neutrophils [#/volume] in Blood PLATELETK/UL 135 THOUSAND/UL 10*3/uL 140-400 L platelet count RDW 14.6 % 11.0-15.0 N Erythrocyte distribution width [Ratio] by Automated count OL-MCHC 33.3 g/dL 32.0-36.0 N mean corpus cular hemoglobin concentration, rbc MCH 32.7 pg 27.0-33.0 N MCH [Entiti c mass] by Automated count MCV 98.2 fL 80.0-100. 0 N MCV [Entitic volume] by Automated count HCT 39.8 % 35.0-45.0 N Hematocrit [Volume Fraction] of Blood by Automated count HGB 13.3 g/dL 11.7-15.5 N Hemoglobin [Mass/volume] in Blood RBC M/UL 4.05 MILLION/UL 10*6/uL 3.80-5.10 N red blood count WBC CT BLOOD 7.1 10*3/uL 3.8-10.8 N leukocy te count, blood Plan of Care Type Date Detail Pending order CMP Pending order B12 Pending order Vitamin D 25 Dih ydroxy Pending order Lipid Panel Pending order CPK Pending order CBC with diff Pending order Injection(s) Ord ered Pending order Vitamin B-12 up to 1000 mcg Pending order B12 Pending order CBC with diff Pending order CMP Pending order Vitamin D 25 Hyd camelia Pending order Lipid Panel Pending order TSH reflex to fr ee T4 Procedures Code Procedure Name Date Entry Date 88157 [facility] # CMP 6 927 [facility] # B12 00137 [facility] # Vitamin D 25 Dihydroxy 64667 [facility] # Lipid Panel 6 374 [facility] # CPK 6399 [facility] # CBC with diff 6 INJORDER Injection(s) Ordered [id number] Vitamin B-12 up to 1000 mcg 6399 [facility] # CBC with diff 6 66783 [facility] # CMP 6 34435 [facility] # Lipid Panel 6 67166 [facility] # TSH reflex to free T4 927 [facility] # B12 53410 [facility] # Vitamin D 25 Hydroxy 2 Vital Signs Date Name Value Unit Description BP Diastolic 76 mm[Hg] blood pressu re, diastolic BP Systolic 113 mm[Hg] blood pressur e, systolic Heart Rate 85 /min pulse rate Height 0 cm height in cent imeters E&M Weight Measured 189 [lb_av] weight E& M Weight Measured 189 [lb_av] weight E& M Weight Measured 85.91 kg weight in kilograms E&M Immunizations No information available. Advance Directives No information available.
--- OUTSIDE RECORDS SUMMARY | 2025-07-14 14:37 | XMS_ITS | Clinical Summary ---
Author Organization Healthcare Address [address] [id number] Care Team Providers Care Charge Accounts Audit Clerk Name Role Phone Reid Sharam MD Primary Care Provider [phone] Allergies Active Allergy Reactions Criticality Noted Date Comments Codeine Other - please docum ent in the comment field Low 02/17/2012 Eletriptan Swelling High 07/18/2022 Throat swelling Erythromycin Other - please docum ent in the comment field Low 04/01/2011 Metronidazole Other - please docum ent in the comment field High 02/17/2012 Liver Failure Sulfa Drugs Nausea,Vomiting Medium 07/18/2022 Sulfacetamide Nausea,Rash,Vomiting Low 04/01/2011 Sumatriptan Swelling High 07/18/2022 Throat swelling Tetracycline Other - please docum ent in the comment field Low 04/01/2011 Tramadol Rash Low 02/17/2012 Medications albuterol (2.5 MG/3ML) 0.083% nebulizer solution USE 1 UNIT DOSE EVERY 4-6 HOURS NEEDED FOR WHEEZING . 9 Active albuterol 108 (90 Base) MCG/ACT inhaler 0 Active busPIRone (Buspar) 5 MG tablet 4 Active GNP Vitamin D3 Extra Strength 25 MCG (1000 UT) tablet 4 Active citalopram (CeleXA) 40 MG tablet 9 Active clonazePAM (KlonoPIN) 0.5 MG tablet 9 Active ergocalciferol 1.25 MG (43299 UT) capsule 4 Active estradiol (Estrace) 1 MG tablet 4 Active fluticasone (Flonase) 50 MCG/ACT nasal spray Administer 2 sprays into each nostril 1 (one) time each day. 0 Active Advair Diskus 500-50 MCG/ACT diskus inhaler 3 Active gabapentin (Neurontin) 600 MG tablet 9 Active hydrocortisone 2.5 % cream 4 Active levothyroxine (Synthroid, Levoxyl) 50 MCG tablet 4 Active lisinopril-hydroCH LOROthiazide 20-25 MG tablet 9 Active metFORMIN XR (Glucophage-XR) 500 MG 24 hr tablet 4 Active metoprolol tartrate (Lopressor) 50 MG tablet 9 Active montelukast (Singulair) 10 MG tablet Take 1 tablet (10 mg) by mouth every night. 0 Active ondansetron ODT (Zofran-ODT) 4 MG disintegrating tablet 3 Active oxyCODONE-acetamin ophen (Percocet) 7.5-325 MG tablet 4 Active oxyCODONE (Roxicodone) 10 MG immediate release tablet 4 Active pantoprazole (Protonix) 40 MG EC tablet 4 Active raNITIdine (Zantac) 150 MG tablet Take 1 tablet (150 mg) by mouth every night. 9 Active tiZANidine (Zanaflex) 4 MG tablet 9 Active Active Problems No known active problems Family History Medical History Relation Name Comments Cardiac disorder Father Hypertension Father Lung disease Father Depression Mother Diabetes Mother Hypertension Mother Relation Name Status Comments Father Mother Social History Tobacco Use Types Packs/Day Years Used Date Smoking Tobacco: Every Day Cigarettes 1 40 Smokeless Tobacco: Never Tobacco Cessation:Ready to Q uit: Not Asked; Counseling Given: Not Answered Alcohol Use Standard Drinks/Week Comments Not Currently 0 (1 standard drink = 0.6 oz pur e alcohol) PHQ-2 Answer Date Recorded Patient Health Questionnaire-2 Score 0 10/31/2023 Comments Unknown Sex and Gender Information Value Date Recorded Sex Assigned at Not on file Legal Sex Female 8:46 PM EDT Gender Identity Not on file Sexual Orientation Not on file Last Filed Vital Signs Vital Sign Reading Time Taken Comments Blood Pressure 132/79 10/31/2023 2:21 PM EST Pulse 55 10/31/2023 2:21 PM EST Temperature 36.1 C (96.9 F) 10/31/2023 2:21 PM EST Respiratory Rate 16 05/02/2020 9:05 AM EDT Oxygen Saturation - - Inhaled Oxygen Concentration - - Weight 74.3 kg (163 lb 12.8 oz) 10/31/2023 2:21 PM EST Height 152.4 cm (5') 10/31/2023 2:21 PM EST Body Mass Index 31.99 10/31/2023 2:21 PM EST Plan of Treatment Health Maintenance Due Date Last Done Comments [facility]-HIV Screening 1967 [facility]-Hepatitis C Screening 1967 [facility]-Medicare Annual Wellness (AWV) 1967 [facility]-Infant/Child/Adol SDOH Screenings 1967 [facility]- SDOH Screenings 1985 [facility]-Adult SDOH Screenings 1985 [facility]-Hepatitis B Vaccines (1 of 3 - 19+ 3-dose series) 1986 CT Colonography 2012 Colonoscopy 2012 FIT-DNA 2012 FIT 2012 FOBT 2012 Sigmoidoscopy 2012 [facility]-Colorectal Cancer Screening 2012 [facility]-Breast Cancer Screening 2017 [facility]-Pneumococcal Vaccine: 50+ Years (1 of 1 - PCV) 2017 [facility]-Zoster Vaccines (1 of 2) 2017 [id number] Vaccine (3 - Pfizer risk series) 09/07/2021 08/10/2021, 07/20/2021 [facility]-Depression Screening 10/31/2024 10/31/2023 [facility]-Influenza Vaccine (#1) 05/24/202509/11, 07/06/2022, 08/29/2021, Additional history exists [facility]-DTaP,Tdap,and Td Vaccines (2 - Td or Tdap) 10/18/2033 10/18/2023 [facility]-Obesity Intervention Completed 10/31/2023 HPV Vaccines Aged Out No longer eligi ble based on patient's age to complete this topic [facility]-HIB Vaccines Aged Out No longer e ligible based on patient's age to complete this topic [facility]-Hepatitis A Vaccines Aged Out No longer eligible based on patient's age to complete this topic [facility]-IPV Vaccines Aged Out No longer e ligible based on patient's age to complete this topic [facility]-Rotavirus Vaccines Aged Out No lo nger eligible based on patient's age to complete this topic Insurance [facility] [employer] [facility] [place] [phone] Care Teams Charge Accounts Audit Clerk Relationship Specialty Start Date End Date Reid Sharma MD [address] [place] [id number] PCP - General 02/03/21
== END 2025-07-14 23:59 | disposition home or self-care (01) ==
LOC: RAD 13:52
PROVIDERS: PCP Nurse Practitioner Family; Visit Provider Nurse Practitioner Family
DX: Z12.31 Encounter for screening mammogram for malignant neoplasm of breast (principal); R92.323 Mammographic fibroglandular density, bilateral breasts
CPT/HCPCS: 77063; 77067